=== PATIENT | female | born 1945 | race Caucasian/White ===

== ENCOUNTER → 2017-05-12 09:35 | Outpatient (CLI) | payer MEDICARE, SELFPAY ==
--- NOTE | 2017-05-12 09:41 | CT_ITS ---
CT chest w con HISTORY: Weight loss with elevated liver function and history of breast cancer. Evaluate for metastasis ORDERING PHYSICIAN: Regino Cartagena MD PATIENT AGE: 71 years TECHNIQUE: Axial images obtained following the administration of 75 mL of Isovue 370 . Sagittal, and coronal reformatted images are also generated and reviewed. COMPARISON: None FINDINGS: Small nodes are present in the mediastinum. No adenopathy. Coronary artery calcifications are present. No pericardial effusion. No central pulmonary embolus or aortic aneurysm. No suspicious pulmonary nodules. There is a 3 mm noncalcified nodule in the superior segment of the right lower lobe to small to categorize. No infiltrates or effusions. There is increased density in the inferior aspect of the left breast. Surgical clips are present at this region. This is nonspecific and can be better evaluated with mammography. No axillary adenopathy. No bony destructive process. IMPRESSION: 1. No acute finding. No convincing evidence of pulmonary metastasis. 2. Increased soft tissue density in the left breast adjacent to surgical clips. This could be related to scar tissue. Suggest mammography for further evaluation.
--- NOTE | 2017-05-12 09:42 | CT_ITS ---
CT abdomen pelvis w con CLINICAL INDICATION: ITS.REASON: BREAST CA,WEIGHT LOSS,ELEVATED LIVER FUNCTION ORDERING PHYSICIAN: Regino Cartagena MD PATIENT AGE: 71 years COMPARISON: 07/10/2014 TECHNIQUE: Axial images obtained with sagittal and coronal reformats. PROCEDURE: Oral Contrast: None IV Contrast: 75 mL's of Isovue-370. FINDINGS: No focal liver lesion is evident. No radio opaque gallstones or biliary dilatation. Spleen, adrenal glands, and pancreas are unremarkable.. There is some mild thickening of the proximal jejunum just to the left and lateral to the transverse portion of the duodenum with some minimal stranding of the adjacent fat at this area and a few small lymph nodes in this region as well. Enteritis is considered. Follow-up is suggested to confirm stability. Upper endoscopy of this region may also be of further value. Neoplastic process is felt to be less likely but not entirely excluded radiographically. This could also be seen with pancreatitis however, the pancreas has an unremarkable appearance. No hydronephrosis, renal mass, or obstructing ureteral calculi evident. No evidence of appendicitis, intestinal obstruction, diverticulitis, or free air is evident. There is thickening versus nondistention of the descending colon. No abnormal fluid collections. There has been a prior hysterectomy. No pelvic mass or focal inflammatory change. No acute bony anomalies. Degenerative changes are present in the lumbar spine. IMPRESSION: 1. No evidence of hepatic metastasis. 2. Suspect enteritis of the junction of the duodenum and proximal jejunum. Neoplasm is not entirely excluded. Consider endoscopy for follow-up evaluation. 3. There is mild adenopathy in the proximal mesenteric root with nodes measuring up to 2 x 1 cm which has developed in the interval. This could be reactive. Neoplasm such as metastasis or early lymphoma is also a consideration. Short-term follow-up recommended. 4. Thickening versus nondistention of the descending colon which may be seen with colitis.
--- NOTE | 2017-05-12 10:31 | HMH.ITSHM ---
ALPRAZOLAM,JANUVIA,ATENOLOL VIT D ASPIRIN PROBNIOTICS VEIT D
== END ==
PROVIDERS: PCP Internal Medicine Adolescent Medicine; Visit Provider Internal Medicine Adolescent Medicine
DX: Z03.89 Encounter for observation for other suspected diseases and conditions ruled out (principal); Z85.3 Personal history of malignant neoplasm of breast; R63.4 Abnormal weight loss; R79.89 Other specified abnormal findings of blood chemistry
CPT/HCPCS: 71260; 74177; Q9967

== ENCOUNTER 2017-05-18 22:25 | Emergency (ER) | payer MEDICARE, SELFPAY ==
[2017-05-18 22:25] VITALS: BP 151/88; PULSE 82; RESP 16; TEMP 36.8; O2SAT 100; BMI 21.5
[2017-05-18 22:26] VITALS: BMI 21.5
--- NOTE | 2017-05-18 22:27 | CT_ITS ---
CT head/brain wo con HISTORY: Numbness, paresthesias, right-sided numbness and tingling in face and neck ITS.REASON: TINGLING ORDERING PHYSICIAN: Mayito Campbell MD PATIENT AGE: 71 years COMPARISON: None TECHNIQUE: Axial images obtained without contrast. Brain and bone windows reviewed. FINDINGS: No midline shift, mass effect, intracranial hemorrhage, or extra-axial fluid collection is evident. There is mild [place] atrophy with periventricular ischemic gliotic change. The ventricles are slightly prominent and may be out of context to the degree of atrophy. This may be seen with normal pressure hydrocephalus. Please correlate with clinical parameters. The calvarium has an unremarkable appearance. No mastoid effusion. No sinus air-fluid levels.. IMPRESSION: 1. No acute intracranial findings. 2. Atrophy with white matter ischemic change. 3. Mild ventriculomegaly. Cannot exclude normal pressure hydrocephalus.
--- NOTE | 2017-05-18 23:28 | HMH.EDWEAK ---
ED Disposition Clinical Impression: Weakness Disposition: Home, Self-Care Condition on Discharge: Good Instructions: DI for Muscle Weakness Additional Instructions: fluids and see pcp for follow up Referrals: Regino Cartagena MD [Primary Care Provider] - - Critical Care Critical Care Time: No Attestation: On 05/18/17, the high probability of a clinically significant, sudden or life threatening deterioration of the following system(s) required my full and direct attention, intervention and personal management. The time I documented below is in addition to time spent performing reported procedures but includes the following listed in this critical care notation. Medical Decision Making - Medical Records Medical records reviewed: Yes: I reviewed the patient's medical records. Vital Signs: 05/18/17 22:25 Temperature 98.2 F Temperature Source Oral Pulse Rate [Right Brachial] 82 Respiratory Rate 16 Blood Pressure [Right Arm] 151/88 Blood Pressure Mean [Right Arm] 109 Blood Pressure Source [Right Arm] Automatic Cuff Blood Pressure Position [Right Arm] Supine 02 Sat by Pulse Oximetry 100 Oxygen Delivery Method Room Air - Lab Data Lab results reviewed: Yes: I reviewed the patient's lab results. Lab Results 05/18/17 22:50: WBC 7.6, RBC 3.75 L, Hgb 11.5 L, Hct 35.5 L, MCV 94.8, MCH 30.6, MCHC 32.3, RDW 13.4, Plt Count 235, MPV 8.3, Neut % (Auto) 64.7, Lymph % (Auto) 27.2, [place] % (Auto) 5.8, Eos % (Auto) 2.0, Baso % (Auto) 0.4, Neut # (Auto) 4.9, Lymph # (Auto) 2.1, [place] # (Auto) 0.4, Eos # (Auto) 0.2, Baso # (Auto) 0.0 05/18/17 22:50: Sodium 143, Potassium 3.9, Chloride 107, Carbon Dioxide 28, Anion Gap 11.9, BUN 22 H, Creatinine 0.71, Estimated Creat Clear 43, Estimated GFR 81, Est GFR ( Amer) 98, Glucose 104, Calcium 8.6, Total Bilirubin 0.3, AST 39 H, ALT 51, Alkaline Phosphatase 109, Total Creatine Kinase 60, CK-MB (CK-2) 0.5, CK-MB (CK-2) Rel Index 0.8, Troponin I < 0.02, Total Protein 6.2 L, Albumin 2.9 L, Globulin 3.3 H, Albumin/Globulin Ratio 0.9 L 05/18/17 23:38: Urine Color Yellow, Urine Appearance Clear, Urine pH 5.5, Ur Specific [place] 1.025, Urine Protein Negative, Urine Glucose (UA) Negative, Urine Ketones Negative, Urine Blood Negative, Urine Nitrate Negative, Urine Bilirubin Negative, Urine Urobilinogen 0.2, Ur Leukocyte Esterase Trace, Urine WBC Occasional, Urine Bacteria Trace Result diagrams: 05/18/17 22:50 05/18/17 22:50 Orders (Tests/Meds): ORDERS Category Date Time Status CT head/brain wo con Stat Cat Scan 05/18/17 22:27 Taken ESR [Erythrocyte Sedimentation Rate] Stat Lab 05/18/17 23:36 Ordered 12-lead EKG Request [ECG Request by /Walter] Stat Y 05/18/17 22:35 Ordered - CT Data CT Scan: Head Time Received: 23:[address] Reviewed: Yes: I have viewed the radiologist's interpretation Preliminary Findings: Normal/NAD - ECG Data Tracing #1 I reviewed this ECG and interpreted as documented below: Normal Sinus Rhythm: Yes Ischemic changes: non-specific ST-T wave changes - Brian Inquiry Pt receiving controlled substance: No Weakness HPI - General Chief complaint: Weakness Stated complaint: TINGLING Time Seen by Provider: 05/18/17 22:30 Mode of Arrival: Wheelchair Source of Information: Patient, Spouse, Medical Record Limitations: No Limitations Description of Symptoms (Recalled from ER Triage Doc. by RN): RIGHT ARM TINGLING TODAY, SYMPTOMS HAVE RESOLVED. STATES GENERALIZED WEAKNESS - History of Present Illness HPI Narrative: episode of feeling warm and generalized weakness MD Complaint: generalized weakness Onset (ago): hour(s) Duration: now resolved Migration: none Severity: moderate Quality: tingling - Related Data Home Medications Medication Instructions Recorded Confirmed ALPRAZolam [Alprazolam Xr 0.5mg 0.5 mg PO NEEDED PRN 05/18/17 05/18/17 Tab] Atenolol [Atenolol 100mg Tab] 100 mg PO DAILY 05/18/17 05/18/17 Atorvastatin [place]
--- NOTE | 2017-05-18 23:31 | ED_ITS ---
ED Disposition Clinical Impression: Weakness Disposition: Home, Self-Care Condition on Discharge: Good Instructions: DI for Muscle Weakness Additional Instructions: fluids and see pcp for follow up Referrals: Regino Cartagena MD [Primary Care Provider] - - Critical Care Critical Care Time: No Attestation: On 05/18/17, the high probability of a clinically significant, sudden or life threatening deterioration of the following system(s) required my full and direct attention, intervention and personal management. The time I documented below is in addition to time spent performing reported procedures but includes the following listed in this critical care notation. Medical Decision Making - Medical Records Medical records reviewed: Yes: I reviewed the patient's medical records. Vital Signs: 05/18/17 22:25 Temperature 98.2 F Temperature Source Oral Pulse Rate [Right Brachial] 82 Respiratory Rate 16 Blood Pressure [Right Arm] 151/88 Blood Pressure Mean [Right Arm] 109 Blood Pressure Source [Right Arm] Automatic Cuff Blood Pressure Position [Right Arm] Supine 02 Sat by Pulse Oximetry 100 Oxygen Delivery Method Room Air - Lab Data Lab results reviewed: Yes: I reviewed the patient's lab results. Lab Results 05/18/17 22:50: WBC 7.6, RBC 3.75 L, Hgb 11.5 L, Hct 35.5 L, MCV 94.8, MCH 30.6 , MCHC 32.3, RDW 13.4, Plt Count 235, MPV 8.3, Neut % (Auto) 64.7, Lymph % (Auto ) 27.2, [place] % (Auto) 5.8, Eos % (Auto) 2.0, Baso % (Auto) 0.4, Neut # (Auto) 4.9, Lymph # (Auto) 2.1, [place] # (Auto) 0.4, Eos # (Auto) 0.2, Baso # (Auto) 0.0 05/18/17 22:50: Sodium 143, Potassium 3.9, Chloride 107, Carbon Dioxide 28, Anion Gap 11.9, BUN 22 H, Creatinine 0.71, Estimated Creat Clear 43, Estimated GFR 81, Est GFR ( Amer) 98, Glucose 104, Calcium 8.6, Total Bilirubin 0.3 , AST 39 H, ALT 51, Alkaline Phosphatase 109, Total Creatine Kinase 60, CK-MB ( CK-2) 0.5, CK-MB (CK-2) Rel Index 0.8, Troponin I < 0.02, Total Protein 6.2 L, Albumin 2.9 L, Globulin 3.3 H, Albumin/Globulin Ratio 0.9 L 05/18/17 23:38: Urine Color Yellow, Urine Appearance Clear, Urine pH 5.5, Ur Specific [place] 1.025, Urine Protein Negative, Urine Glucose (UA) Negative, Urine Ketones Negative, Urine Blood Negative, Urine Nitrate Negative, Urine Bilirubin Negative, Urine Urobilinogen 0.2, Ur Leukocyte Esterase Trace, Urine WBC Occasional, Urine Bacteria Trace Result diagrams: 05/18/17 22:50 05/18/17 22:50 Orders (Tests/Meds): ORDERS Category Date Time Status CT head/brain wo con Stat Cat Scan 05/18/17 22:27 Taken ESR [Erythrocyte Sedimentation Rate] Stat Lab 05/18/17 23:36 Ordered 12-lead EKG Request [ECG Request by /Walter] Stat Y 05/18/17 22:35 Ordered - CT Data CT Scan: Head Time Received: 23:[address] Reviewed: Yes: I have viewed the radiologist's interpretation Preliminary Findings: Normal/NAD - ECG Data Tracing #1 I reviewed this ECG and interpreted as documented below: Normal Sinus Rhythm: Yes Ischemic changes: non-specific ST-T wave changes - Brian Inquiry Pt receiving controlled substance: No Weakness HPI - General Chief complaint: Weakness Stated complaint: TINGLING Time Seen by Provider: 05/18/17 22:30 Mode of Arrival: Wheelchair Source of Information: Patient, Spouse, Medical Record Limitations: No Limitations Description of Symptoms (Recalled from ER Triage Doc. by RN): RIGHT ARM TINGLING TO
[2017-05-18 23:41] LABS: Basophils % 0.4 % (0.1-2.0); Eosinophils # 0.2 K/mm3 (0.0-0.4); Hematocrit 35.5 % (37.0-47.0); Hemoglobin 11.5 g/dL (12.2-16.2); Lymphocytes # 2.1 K/mm3 (0.7-4.5); Lymphocytes % 27.2 K/mm3 (10-50); Mean Corpuscular HGB Conc 32.3 g/dL (31.8-35.4); Mean Corpuscular Hemoglobin 30.6 pg (27.0-31.2); Mean Corpuscular Volume 94.8 fl (81-99); Mean Platelet Volume 8.3 fl (7.4-10.4); Monocytes # 0.4 K/mm3 (0.1-1.0); Monocytes % 5.8 % (1.7-9.3); Neutrophils # 4.9 K/mm3 (1.8-7.8); Neutrophils % 64.7 % (37.0-80.0); Platelet Count 235 K/mm3 (142-424); Red Blood Count 3.75 M/mm3 (4.20-5.40); Red Cell Distribution Width 13.4 % (11.5-17.5); White Blood Count 7.6 K/mm3 (4.8-10.8)
[2017-05-18 23:45] LABS: Microscopic, Urine URINE MICROSCOPIC (MICROSCOPIC)
[2017-05-19 00:11] LABS: Alanine Aminotransferase 51 U/L (12-78); Albumin Level 2.9 gm/dL (3.4-5.0); Albumin/Globulin Ratio 0.9 (1.1-1.8); Alkaline Phosphatase 109 U/L (46-116); Anion Gap 11.9 mEq/L (5-15); Aspartate Amino Transferase 39 U/L (15-37); Bilirubin,Total 0.3 mg/dL (0.2-1.0); Blood Urea Nitrogen 22 mg/dL (7-18); CKMB Relative Index 0.8 U/L (0-4.0); Calcium 8.6 mg/dL (8.5-10.1); Carbon Dioxide 28 mmol/L (21.0-32.0); Chloride 107 mmol/L (98-107); Creatine Kinase 60 U/L (26-192); Creatine Kinase MB 0.5 mg/ml (0.0-3.6); Creatinine Clearance Estimated 43 mL/min (0-300); Creatinine,Serum 0.71 mg/dL (0.55-1.02); Estimated Glomerular Filt Rate 81 ml/min (>60); GFR (African American) 98 ML/MIN (>60); Globulin 3.3 gm/dl (1.3-3.2); Glucose 104 mg/dL (74-106); Potassium 3.9 mmoL/L (3.5-5.1); Sodium 143 mmol/L (136-145); Total Protein,Serum 6.2 gm/dL (6.4-8.2); Troponin I < 0.02 ng/ml (0.00-0.06)
[2017-05-19 00:28] LABS: Appearance,Urine CLEAR (Clear); Bilirubin,Urine Negative (Negative); Blood, Urine Negative (Negative); Color,Urine YELLOW (Yellow); Glucose,Urine (UA) Negative (Negative); Ketones,Urine Negative (Negative); Leukocyte Esterase,Urine TRACE (Negative); Nitrate,Urine Negative (Negative); PH,Urine 5.5 (5.0-8.5); Protein,Urine Negative (Negative); Specific Gravity, Urine 1.025 (1.005-1.030); Urobilinogen,Urine 0.2 EU/dl (0.2)
[2017-05-19 00:37] LABS: Bacteria,Urine Trace /lpf; WBC,Urine Occasional #/hpf (0-3)
[2017-05-19 01:01] LABS: Erythrocyte Sedimentation Rate 42 mm/hr (0-30)
[2017-05-19 01:02] VITALS: BP 136/73; PULSE 70; RESP 16; TEMP 36.6; O2SAT 99
== END 2017-05-19 01:04 | disposition home or self-care (01) ==
PROVIDERS: Emergency Provider Emergency Medicine; PCP Internal Medicine Adolescent Medicine
DX: M62.81 Muscle weakness (generalized) (principal); R20.0 Anesthesia of skin; Z79.899 Other long term (current) drug therapy
CPT/HCPCS: 36415; 70450; 80053; 81001; 82550; 82553; 84484; 85025; 85651; 93005; 99282

== ENCOUNTER → 2017-06-01 08:18 | Outpatient (POV) | payer MEDICARE, SELFPAY | PROVIDERS: PCP Internal Medicine Adolescent Medicine; Visit Provider Nurse Practitioner Acute Care | DX: Z00.00 Encounter for general adult medical examination without abnormal findings (principal) ==

== ENCOUNTER → 2017-06-04 14:25 | Outpatient (POV) | payer MEDICARE, SELFPAY | PROVIDERS: Visit Provider Dermatology | DX: Z00.00 Encounter for general adult medical examination without abnormal findings (principal) ==

== ENCOUNTER 2017-07-13 10:32 | Day surgery (SDC) | payer MEDICARE, SELFPAY ==
[2017-07-09 14:22] VITALS: BMI 21.5
[2017-07-13] VITALS (8 sets, daily range): BP systolic 105–131; BP diastolic 48–67; PULSE 59–77; RESP 16–18; TEMP 36.4–36.9; O2SAT 96–100
[2017-07-13 11:05] LABS: POC Glucose,Bedside 124 (70-110)
--- NOTE | 2017-07-13 12:17 | HMH.ANESCL ---
[facility] Anesthesia Checklist - Patient Identification Patient Identification: Arm Band, Verbal (Name & ) - Structural Data Admitted From: Home Consent for Planned Operative Procedure(s) Verified: Yes Verified Documents: Surgical Consent, History and Physical - NPO Status Verified Time NPO: 00:00 - Additional verifications Patient : No Anesthesia Reactions: No - Airway Assessment C-Spine Mobility Assessed: Yes TMJ Mobility Assessed: Yes Dentition: Good Dentition - Neurological Assessment Level of Consciousness: Awake Hx Seizures: No Numbness or tingling in extremities: No - Anesthesia Plan Anesthesia Risk discussed: Yes Anesthesia Plan: Verified ASA Class: III Anesthesia Type: MAC [facility] Anesthesia HX I have reviewed the patient's past medical history: Yes Medical History: Reports:: Anxiety, Diabetes Mellitus Type 2, Hyperlipidemia, Hypertension Denies:: Diabetes Mellitus Type 1, Internal Pacemaker, Lung Disease, Seizures Comment: H/O Breast Ca. Laterality Cases: Left: Lumpectomy Other Surgeries: No: Pacemaker
--- NOTE | 2017-07-13 12:21 | P.PN_ITS ---
[facility] Anesthesia Checklist - Patient Identification Patient Identification: Arm Band, Verbal (Name & ) - Structural Data Admitted From: Home Consent for Planned Operative Procedure(s) Verified: Yes Verified Documents: Surgical Consent, History and Physical - NPO Status Verified Time NPO: 00:00 - Additional verifications Patient : No Anesthesia Reactions: No - Airway Assessment C-Spine Mobility Assessed: Yes TMJ Mobility Assessed: Yes Dentition: Good Dentition - Neurological Assessment Level of Consciousness: Awake Hx Seizures: No Numbness or tingling in extremities: No - Anesthesia Plan Anesthesia Risk discussed: Yes Anesthesia Plan: Verified ASA Class: III Anesthesia Type: MAC [facility] Anesthesia HX I have reviewed the patient's past medical history: Yes Medical History: Reports:: Anxiety, Diabetes Mellitus Type 2, Hyperlipidemia, Hypertension Denies:: Diabetes Mellitus Type 1, Internal Pacemaker, Lung Disease, Seizures Comment: H/O Breast Ca. Laterality Cases: Left: Lumpectomy Other Surgeries: No: Pacemaker
--- NOTE | 2017-07-13 12:27 | HMH.PROC ---
[facility] Procedure Note Procedure Note:: Upper Endoscopy Procedure Report: Esophagogastroduodenoscopy with cold biopsies Endoscopost: Alban Crespo II, MD Referring Physician: Regino Cartagena M.D. Date of Procedure: July 13, 2017 Equipment: Olympus GIF 180 standard upper endoscope Sedation: MAC sedation Indications: Mrs. Rod is a 71-year-old female with dyspepsia. She reports epigastric and some right upper quadrant abdominal pain. She has noted some bloating, belching, nausea, early satiety and a 20 pound weight loss. The patient did have an EGD in 2012 (Dr. Philip Diana). She did have a colonoscopy with me in June 2016 had pericolonic adhesions in the sigmoid colon with a single polyp (tubular adenoma ?1) which was removed. The patient had an ultrasound and HIDA scan 2 or 3 years ago which were normal. She continues to have irregular bowel function. Procedure: Prior to the procedure, a history and physical exam was performed, and patient's medications and allergies were reviewed. The risks, benefits and alternatives of the sedation and procedure were discussed with the patient. All questions were answered and informed consent was obtained. The patient was brought to the procedure room. Patient identification and proposed procedure were verified by the physician and the nurse. The patient was placed in a left lateral decubitus position and the scope was passed under direct vision. Throughout the procedure, the patient's blood pressure, pulse, and oxygen saturations were monitored continuously. The upper GI endoscopy was accomplished without difficulty. The patient tolerated the procedure well. Findings: The scope was passed directly into the upper esophagus and advanced to the third and fourth portion of the duodenum. There was some linear erosions on the conniventes with some luminal narrowing suggestive of NSAID enteropathy. Multiple cold biopsies were obtained. The scope was withdrawn through a normal duodenal bulb and pylorus into the stomach. There was linear erythema of the antrum with bile reflux consistent with linear reactive gastritis. The remainder of the antrum, body and fundus of the stomach were grossly normal. Upon retroflexion there was a very small sliding 1-2 cm hiatal hernia. 2 biopsies were taken in the antrum and along the lesser curvature for histology to rule out gastritis and/or H pylori. The scope was then withdrawn into the esophagus. There was evidence of grade A-B reflux esophagitis with serrated Z line. Cold biopsies were obtained. There were tertiary contractions and evidence of mild esophageal dysmotility. The remainder of the esophageal mucosa was normal. Impression: 1. Grade A-B reflux esophagitis with mild esophageal dysmotility and very small sliding hiatal hernia 2. Bile reflux with mild linear reactive antritis/gastritis 3. Possible NSAID enteropathy Plan: I will follow up the biopsies. I would consider misoprostol twice daily if she is taking any NSAIDs. I would continue PPI therapy. We will discuss additional treatment options which may include treatment for visceral sensitivity.
--- NOTE | 2017-07-13 12:32 | P.PCN_ITS ---
[facility] Procedure Note Procedure Note:: Upper Endoscopy Procedure Report: Esophagogastroduodenoscopy with cold biopsies Endoscopost: Alban Crespo II, MD Referring Physician: Regino Cartagena M.D. Date of Procedure: July 13, 2017 Equipment: Olympus GIF 180 standard upper endoscope Sedation: MAC sedation Indications: Mrs. oRd is a 71-year-old female with dyspepsia. She reports epigastric and some right upper quadrant abdominal pain. She has noted some bloating, belching, nausea, early satiety and a 20 pound weight loss. The patient did have an EGD in 2012 (Dr. Philip Diana). She did have a colonoscopy with me in June 2016 had pericolonic adhesions in the sigmoid colon with a single polyp (tubular adenoma ?1) which was removed. The patient had an ultrasound and HIDA scan 2 or 3 years ago which were normal. She continues to have irregular bowel function. Procedure: Prior to the procedure, a history and physical exam was performed, and patient' s medications and allergies were reviewed. The risks, benefits and alternatives of the sedation and procedure were discussed with the patient. All questions were answered and informed consent was obtained. The patient was brought to the procedure room. Patient identification and proposed procedure were verified by the physician and the nurse. The patient was placed in a left lateral decubitus position and the scope was passed under direct vision. Throughout the procedure, the patient's blood pressure, pulse, and oxygen saturations were monitored continuously. The upper GI endoscopy was accomplished without difficulty. The patient tolerated the procedure well. Findings: The scope was passed directly into the upper esophagus and advanced to the third and fourth portion of the duodenum. There was some linear erosions on the conniventes with some luminal narrowing suggestive of NSAID enteropathy. Multiple cold biopsies were obtained. The scope was withdrawn through a normal duodenal bulb and pylorus into the stomach. There was linear erythema of the antrum with bile reflux consistent with linear reactive gastritis. The remainder of the antrum, body and fundus of the stomach were grossly normal. Upon retroflexion there was a very small sliding 1-2 cm hiatal hernia. 2 biopsies were taken in the antrum and along the lesser curvature for histology to rule out gastritis and/or H pylori. The scope was then withdrawn into the esophagus. There was evidence of grade A-B reflux esophagitis with serrated Z line. Cold biopsies were obtained. There were tertiary contractions and evidence of mild esophageal dysmotility. The remainder of the esophageal mucosa was normal. Impression: 1. Grade A-B reflux esophagitis with mild esophageal dysmotility and very small sliding hiatal hernia 2. Bile reflux with mild linear reactive antritis/gastritis 3. Possible NSAID enteropathy Plan: I will follow up the biopsies. I would consider misoprostol twice daily if she is taking any NSAIDs. I would continue PPI therapy. We will discuss additional treatment options which may include treatment for visceral sensitivity.
== END 2017-07-13 13:30 | disposition home or self-care (01) ==
PROVIDERS: PCP Nurse Practitioner Family; Visit Provider Internal Medicine Gastroenterology
PROC: 0DJ08ZZ Inspection of Upper Intestinal Tract, Via Natural or Artificial Opening Endoscopic (ICD-10-PCS; CPT 43235; principal; 2017-07-13 12:00)
DX: K21.0 Gastro-esophageal reflux disease with esophagitis (principal); K44.9 Diaphragmatic hernia without obstruction or gangrene; K22.4 Dyskinesia of esophagus; K21.9 Gastro-esophageal reflux disease without esophagitis; K29.60 Other gastritis without bleeding
CPT/HCPCS: 43239; 82962; 88305; 88313

== ENCOUNTER 2017-07-28 13:00 | Outpatient (CLI) | payer MEDICARE, SELFPAY ==
[2017-07-28 13:11] VITALS: BMI 22.6
[2017-07-28 13:40] LABS: Albumin Level 3.1 gm/dL (3.4-5.0); Calcium 8.9 mg/dL (8.5-10.1); Creatinine Clearance Estimated 44 mL/min (0-300); Creatinine,Serum 0.96 mg/dL (0.55-1.02); Estimated Glomerular Filt Rate 57 ml/min (>60); GFR (African American) 69 ML/MIN (>60)
[2017-07-28 14:32] VITALS: BP 122/78; PULSE 68; RESP 20; TEMP 36.9; O2SAT 96
[2017-07-28 15:00] VITALS: BP 126/74; PULSE 66; RESP 20; TEMP 36.9; O2SAT 96
== END 2017-07-28 15:00 | disposition home or self-care (01) ==
LOC: INF 13:07
PROVIDERS: PCP Nurse Practitioner Family; Visit Provider Nurse Practitioner Family
DX: M81.0 Age-related osteoporosis without current pathological fracture (principal)
CPT/HCPCS: 82040; 82310; 82565; J3489

== ENCOUNTER → 2017-08-05 16:09 | Outpatient (CLI) | payer MEDICARE, SELFPAY ==
--- NOTE | 2017-08-05 16:12 | MM_ITS ---
MM Dig screening mamm BI w/CAD CAD Screening ORDERING PHYSICIAN : Holly Cortés PATIENT AGE: 71 years GENDER: Female COMPARISON: Previous mammograms: May 2013, July 2014, 2015, 2016April 2012 INDICATION: Lumpectomy for malignancy left breast. Currently No hormones no new complaints. Noncontributory family history TECHNIQUE: Standard CC and MLO images were obtained. Axillary cc view both breast included R2 CAD reviewed. -FINDINGS: No significant new findings either breast. Minimal residual fibroglandular elements with post lumpectomy changes left breast most notable feature RIGHT BREAST no significant new findings. Residual fibroglandular elements are most evident at immediate retroareolar region on right again noted similar to last years study. LEFT BREAST: :No significant new findings Postlumpectomy changes. Scarring and mild architectural changes along with residual density here on at lumpectomy site appears similar to previous studies. There are some scattered calcifications lateral to this area which appear stable as well -----IMPRESSION: ------- No significant new findings either breast Postlumpectomy changes left breast again noted and appear stable Ongoing Follow-up in one year recommended BI-RADS Category: 2 Benign Finding(s) RECOMMENDED FOLLOW-UP: 1YR - 1 YEAR FOLLOW-UP (A letter has been sent to the patient regarding results of the study.) In
== END ==
PROVIDERS: PCP Nurse Practitioner Family; Visit Provider Nurse Practitioner Family
DX: Z12.31 Encounter for screening mammogram for malignant neoplasm of breast (principal)
CPT/HCPCS: 77067

== ENCOUNTER → 2017-10-05 12:43 | Outpatient (POV) | payer MEDICARE, SELFPAY | PROVIDERS: PCP Nurse Practitioner Family; Visit Provider Nurse Practitioner Acute Care | DX: Z00.00 Encounter for general adult medical examination without abnormal findings (principal) ==

== ENCOUNTER → 2018-03-26 12:23 | Outpatient (CLI) | payer MEDICARE, SELFPAY ==
[2018-03-26 16:35] LABS: Thyroid Stimulating Hormone 1.99 uIU/ml (0.358-3.740)
== END ==
PROVIDERS: Visit Provider Internal Medicine Adolescent Medicine
DX: F32.9 Major depressive disorder, single episode, unspecified (principal)
CPT/HCPCS: 36415; 84443

== ENCOUNTER → 2018-04-12 13:18 | Outpatient (POV) | payer MEDICARE, SELFPAY | PROVIDERS: Visit Provider Nurse Practitioner Acute Care | DX: Z00.00 Encounter for general adult medical examination without abnormal findings (principal) ==

== ENCOUNTER → 2018-05-25 09:22 | Outpatient (POV) | payer MEDICARE, SELFPAY | PROVIDERS: Visit Provider Dermatology | DX: Z00.00 Encounter for general adult medical examination without abnormal findings (principal) ==

== ENCOUNTER → 2018-07-08 09:48 | Outpatient (CLI) | payer MEDICARE, SELFPAY ==
--- NOTE | 2018-07-08 09:52 | XR_ITS ---
. DEXA SCAN.-BONE DENSITY STUDY HIPS AND LUMBAR SPINE HISTORY: Postmenopausal female 72-year-old female. TECHNIQUE: DEXA scan hip and lumbar spine The most complete data summary and color graphic presentation of the today's ( and any prior ) DEXA findings are available in PACS. Definition and treatment guidelines included. COMPARISON: DEXA May 30, 2016 ======== LUMBAR SPINE: L1 & L2 vertebral body osteoporotic & demonstrates the lowest T score = -2.8 at both levels. Lower BMD is at at L1 = 0.798 Overall mean lumbar L1-L4 T score -2.4 with BMD0.898 g/cm sq . Indicating pronounced osteopenia, near osteoporosis category 2017 prior DEXA the mean T score -2.6 with BMD was0.868g/cm sq Thus when comparing today's study to the prior exam there's been a 3.2% % increasing mean bone density at the lumbar spine. ====== HIPS: Femoral neck density is best predictor of hip fracture risk . Left femoral neck demonstrates the lowest T score -2.5 with BMD0.697 g/cm sq . Right femoral neck T score = -2.3 with BMD 0.717 Averaging of all regions at the hip yields today's Hip Mean T score -2.2 with BMD0.733 g/cm sq . Previous 2017 DEXA overall hip T score -2.6 with mean BMD0.680 g/cm sq Thus this reflects a 7.8% increasein overall mean bone density at the hips in the interval. ------IMPRESSION :--------- increased fracture risk 1. LUMBAR SPINE: Overall T score lumbar spine = -2.4, but which is shown 3.2% increase bone density/improvement since previous 2017 study L1-L2 vertebral bodies remain osteoporotic... Both demonstrate T score -2.8.. 2. HIPS: Overall hip T score -2.2 indicating osteopenia. However note 7.8% increase bone density overall at the hips vs 2017 study WHO criteria for post-menopausal, Women: Normal: T-score at or above -1 SD Osteopenia: T-score between -1 and -2.5 SD Osteoporosis: T-score at or below -2.5 SD
== END ==
PROVIDERS: PCP Nurse Practitioner Family; Visit Provider Nurse Practitioner Family
DX: M81.0 Age-related osteoporosis without current pathological fracture (principal)
CPT/HCPCS: 77080

== ENCOUNTER 2018-07-30 11:00 | Outpatient (CLI) | payer MEDICARE, SELFPAY ==
[2018-07-30 11:03] VITALS: BMI 27.3
[2018-07-30 11:37] LABS: Basophils % 0.4 % (0.1-2.0); Eosinophils # 0.1 K/mm3 (0.0-0.4); Eosinophils % 1.2 % (0.1-12.0); Hematocrit 37.5 % (37.0-47.0); Hemoglobin 12.3 g/dL (12.2-16.2); Lymphocytes % 18.3 % (10-50); Mean Corpuscular HGB Conc 32.7 g/dL (31.8-35.4); Mean Platelet Volume 7.8 fl (7.4-10.4); Monocytes # 0.3 K/mm3 (0.1-1.0); Monocytes % 4.8 % (1.7-9.3); Neutrophils # 4.2 K/mm3 (1.8-7.8); Neutrophils % 75.3 % (37.0-80.0); Platelet Count 221 K/mm3 (142-424); Red Blood Count 4.08 M/mm3 (4.20-5.40); Red Cell Distribution Width 13.7 % (11.5-17.5); White Blood Count 5.6 K/mm3 (4.8-10.8)
[2018-07-30 11:45] LABS: Alanine Aminotransferase 36 U/L (12-78); Albumin Level 3.5 gm/dL (3.4-5.0); Albumin/Globulin Ratio 0.9 (1.1-1.8); Alkaline Phosphatase 100 U/L (46-116); Anion Gap 12.9 mEq/L (5-15); Aspartate Amino Transferase 25 U/L (15-37); Bilirubin,Total 0.6 mg/dL (0.2-1.0); Blood Urea Nitrogen 18 mg/dL (7-18); Calcium 8.6 mg/dL (8.5-10.1); Carbon Dioxide 27 mmol/L (21.0-32.0); Chloride 103 mmol/L (98-107); Chol/HDL Ratio 2.4 (1-3.5); Cholesterol 127 mg/dL (140-200); Creatinine Clearance Estimated 52 mL/min (50-200); Estimated Glomerular Filt Rate 54 ml/min (>60); GFR (African American) 66 ML/MIN (>60); Glucose 197 mg/dL (74-106); HDL Cholesterol 54 mg/dL (29-89); LDL Cholesterol 61 mg/dL (0-130); Potassium 3.9 mmoL/L (3.5-5.1); Sodium 139 mmol/L (136-145); Total Protein,Serum 7.5 gm/dL (6.4-8.2); Triglycerides 60 mg/dL (30-200); VLDL Cholesterol 12 mg/dL (0-40)
[2018-07-30 12:00] VITALS: BP 132/78; PULSE 65; TEMP 36.8; O2SAT 93
[2018-07-30 12:48] VITALS: BP 134/73; PULSE 65; TEMP 36.4; O2SAT 98
[2018-07-30 15:10] LABS: Hemoglobin A1C 6.5 % (0.0-7.0)
[2018-07-31 06:44] LABS: Vitamin D 25 Hydroxy 55.9 ng/mL (30.0-100.0)
[2018-07-31 09:12] LABS: Creatinine, Urine 90.9 mg/dL (Not Estab.); Microalbumin, Urine 12.6 ug/mL (Not Estab.)
[2018-07-31 12:41] LABS: Vitamin B12 426 pg/mL (232-1245)
== END 2018-07-30 12:49 | disposition home or self-care (01) ==
LOC: INF 11:00
PROVIDERS: Visit Provider Nurse Practitioner Family
DX: E11.29 Type 2 diabetes mellitus with other diabetic kidney complication (principal); I10 Essential (primary) hypertension; D51.9 Vitamin B12 deficiency anemia, unspecified; M81.0 Age-related osteoporosis without current pathological fracture; R80.9 Proteinuria, unspecified; Z79.84 Long term (current) use of oral hypoglycemic drugs
CPT/HCPCS: 80053; 80061; 82043; 82570; 82607; 82652; 83036; 85025; 96365; J3489

== ENCOUNTER → 2018-09-03 08:26 | Outpatient (CLI) | payer MEDICARE, SELFPAY ==
--- NOTE | 2018-09-03 08:28 | MM_ITS ---
MM Dig screening mamm BI w/CAD CAD Screening COMPARISON: Digital mammograms with CAD 08/05/2017 and 08/01/2016 INDICATION: There is been previous lumpectomy left breast for malignancy TECHNIQUE: Standard CC and MLO images were obtained. R2 CAD reviewed. FINDINGS: Moderate architectural distortion is seen at the lumpectomy site left breast where there are surgical clips and some scattered calcifications. There is mild skin thickening of the left breast, has a been previous radiotherapy? There are mole markers on each breast. Right breast is composed primarily of fat with minimal fibroglandular densities noted. There is a stable keloid scar right breast. IMPRESSION: Stable exam with post lumpectomy scarring left breast and no suspicious or new lesion seen in either breast BI-RADS Category: 2 Benign Finding(s) RECOMMENDED FOLLOW-UP: 1YR - 1 YEAR FOLLOW-UP (A letter has been sent to the patient regarding results of the study.)
== END ==
PROVIDERS: PCP Nurse Practitioner Family; Visit Provider Nurse Practitioner Family
DX: Z12.31 Encounter for screening mammogram for malignant neoplasm of breast (principal)
CPT/HCPCS: 77067

== ENCOUNTER → 2019-01-04 09:40 | Outpatient (CLI) | payer MEDICARE, SELFPAY ==
[2019-01-04 10:15] LABS: Basophils % 0.5 % (0.1-2.0); Eosinophils # 0.1 K/mm3 (0.0-0.4); Eosinophils % 1.8 % (0.1-12.0); Hematocrit 37.9 % (37.0-47.0); Hemoglobin 11.8 g/dL (12.2-16.2); Lymphocytes # 1.3 K/mm3 (0.7-4.5); Lymphocytes % 21.9 % (10-50); Mean Corpuscular HGB Conc 31.2 g/dL (31.8-35.4); Mean Corpuscular Hemoglobin 29.7 pg (27.0-31.2); Mean Corpuscular Volume 95.4 fl (81-99); Mean Platelet Volume 7.9 fl (7.4-10.4); Monocytes # 0.3 K/mm3 (0.1-1.0); Monocytes % 4.7 % (1.7-9.3); Neutrophils # 4.2 K/mm3 (1.8-7.8); Neutrophils % 71.2 % (37.0-80.0); Platelet Count 231 K/mm3 (142-424); Red Blood Count 3.97 M/mm3 (4.20-5.40); Red Cell Distribution Width 14.8 % (11.5-17.5); White Blood Count 5.8 K/mm3 (4.8-10.8)
[2019-01-04 10:32] LABS: Hemoglobin A1C 7.1 % (0.0-7.0)
[2019-01-04 11:02] LABS: Alanine Aminotransferase 18 U/L (12-78); Albumin Level 3.5 gm/dL (3.4-5.0); Alkaline Phosphatase 96 U/L (46-116); Anion Gap 14.2 mEq/L (5-15); Aspartate Amino Transferase 14 U/L (15-37); Bilirubin,Total 0.7 mg/dL (0.2-1.0); Blood Urea Nitrogen 19 mg/dL (7-18); Calcium 9.1 mg/dL (8.5-10.1); Carbon Dioxide 26 mmol/L (21.0-32.0); Chloride 105 mmol/L (98-107); Chol/HDL Ratio 2.6 (1-3.5); Cholesterol 135 mg/dL (140-200); Creatinine,Serum 0.99 mg/dL (0.55-1.02); Estimated Glomerular Filt Rate 55 ml/min (>60); GFR (African American) 66 ML/MIN (>60); Globulin 3.4 gm/dl (1.3-3.2); Glucose 147 mg/dL (74-106); HDL Cholesterol 51 mg/dL (29-89); LDL Cholesterol 63 mg/dL (0-130); Potassium 4.2 mmoL/L (3.5-5.1); Sodium 141 mmol/L (136-145); Thyroid Stimulating Hormone 2.94 uIU/ml (0.358-3.740); Total Protein,Serum 6.9 gm/dL (6.4-8.2); Triglycerides 104 mg/dL (30-200); VLDL Cholesterol 21 mg/dL (0-40)
[2019-01-04 11:06] LABS: C-Reactive Protein < 0.2 mg/dL (0.0-0.9)
[2019-01-04 16:36] LABS: Erythrocyte Sedimentation Rate 39 mm/hr (0-30)
[2019-01-05 16:45] LABS: RA Latex Turbid. <10.0 IU/mL (0.0-13.9); Vitamin B12 411 pg/mL (232-1245); Vitamin D 25 Hydroxy 46.5 ng/mL (30.0-100.0)
[2019-01-06 06:13] LABS: Anti-Cyclic Citrullinated Pept 8 units (0-19)
== END ==
PROVIDERS: Visit Provider Nurse Practitioner Family
DX: E11.9 Type 2 diabetes mellitus without complications (principal); M25.60 Stiffness of unspecified joint, not elsewhere classified; R70.0 Elevated erythrocyte sedimentation rate; R06.09 Other forms of dyspnea; E55.9 Vitamin D deficiency, unspecified; E53.8 Deficiency of other specified B group vitamins; I10 Essential (primary) hypertension; Z79.84 Long term (current) use of oral hypoglycemic drugs
CPT/HCPCS: 36415; 80053; 80061; 82607; 82652; 83036; 84443; 85025; 85651; 86140; 86200; 86431

== ENCOUNTER → 2019-01-17 06:17 | Outpatient (CLI) | payer MEDICARE, SELFPAY ==
--- NOTE | 2019-01-17 | CA_ITS ---
APPROVED REPORT Exam: Pharmacologic Technologist: Urvashi Wilde Ht: 5 ft 2 in Wt: 150 lbs BSA: 1.69 m2 HR: 59 bpm BP: 147/79 mmHg Indications: Shortness of Breath on Exertion, Family History of Early CAD Medical History Medications: Alprazolam,,,,, Atenolol,,,,, Atorvastatin,,,,, Vitamins,,,,, Citalopram,,,,, Januvia,,,,, Stress Test Details Test: LEXISCAN HR Resting HR: 61 bpm Max Heart Rate (APMHR): 146 bpm Max HR Achieved: 111 bpm Target HR (85% APMHR): 124 bpm % of APMHR: 76 Recovery HR: 83 bpm BP Resting BP: 147.0/79.0 mmHg Max BP: 190.0/100.0 mmHg Recovery BP: 140.0/86.0 mmHg ECG Clinical Exercise duration: 04:03 min Highest Stage Achieved: Exercise capacity: 1.0 METs Stress ECG Conclusion Resting ECG: Sinus bradycardia Lexiscan portion completed. Symptoms: Nausea at peak infusion, resolved in recovery. No chest pain or shortness of breath. Arrhythmias/Ectopy: Occasional PVC ST-T Changes: Less than 1.[address] depression. Conclusion: Non-diagnostic. Images to follow. Electronically signed by : Russell Fam, 01/17/2019 21:36:47
--- NOTE | 2019-01-17 06:33 | NM_ITS ---
APPROVED REPORT Exam: Nuclear Stress Test Indication: SOB, HTN, DM, High Cholesterol Patient Location: Outpatient Stress Tech: Urvashi Wilde NM Tech:Chela Bone, ARRT, RT (R)(N) Ht: 5 ft 2 in Wt: 150 lbs Bra Size: 36B HR: 59 bpm BP: 147/79 mmHg BSA: 1.69 m2 BMI: 27.4 History: SOB, HTN, DM, High Cholesterol Procedure: Patient received a 0.4 mg of intravenous Lexiscan, resting heart rate 59 bpm, resting blood pressure 147/79 mmHg, with Lexiscan maximum heart rate achived was 102 bpm which is Less than 85 % of the maximum predicted heart rate and blood pressure was 173/101 mmHg. With Lexiscan, patient denied any complaint of chest pain. Electrocardiogram Resting electrocardiogram showed sinus rhythm, with Lexiscan there is a millimeter ST segment depression noted from the baseline EKG. The EKG portion of the Lexiscan Myoview is positive for ischemia. Cardiac Stress and Resting SPECT Images: Cardiac Stress and Resting SPECT images were obtained using technetium 99m Myoview 30.5 mCi stress and 10.48 mCi at rest. Gated SPECT with analysis of segmental wall motion and calculation of the ejection fraction also done. Cardiac stress and resting SPECT images show uniform myocardial activity without segmental perfusion abnormality,. Derived ejection fraction is over 65% with no regional wall motion abnormality, right ventricle is normal size and contractility. Conclusion: 1. The EKG portion of the Lexiscan Myoview is positive for ischemia. 2. No scintigraphic evidence of reversible ischemia seen, computer derived ejection fraction is over 65% with no regional wall motion abnormality, right ventricle is normal size and contractility. 3. Equivocal myocardial perfusion imaging. Electronically signed by : Russell Fam, 01/17/2019 21:39:11
--- NOTE | 2019-01-17 06:43 | CA_ITS ---
APPROVED REPORT EXAM: Comprehensive 2D, Doppler, and color-flow Echocardiogram Chalk Machine Operator: Mónica Mejia RDCS Ht: 5 ft 2 in Wt: 150lbs BSA: 1.69 BP: 146/80 mmHg Indications: Shortness of Breath, Diabetes, Dyspnea, Hyperlipidemia, Hypertension/HDD M-Mode Dimensions RVDd 1.60 cm (0.9-2.6) LA Diam 2.70 cm (1.9-4.0) LVDd 5.00 cm (3.5-5.7) Ao Diam 2.90 cm (2.0-3.7) LVDs 3.60 cm (3.5-5.7) AV Cusp 1.20 cm (1.5-2.6) IVSd 0.90 cm (0.6-1.1) PWd 0.70 cm (0.6-1.1) EF (Teich) 53.90% FS 28.00% EDV (Teich) 118.00 mL ESV (Teich) 54.40 mL LV Diastology E/A Ratio 0.8 MED E' 4.09 (< 7 cm/sec) E'/MED E' Ratio 19.20 (>14) LAT E' 6.63 (<10 cm/sec) E/LAT E' Ratio 11.80 (>14) Aortic Valve AI PHT 524.00 ms Mitral Valve MV E Max Virgilio. 78.50 (40-130 cm/s) MV A Velocity 99.20 (40-130 cm/s) E/A Ratio 0.80 Tricuspid Valve TR P. Velocity 239.00 cm/s RAP Estimate 10.00 mmHg RVSP 33.00 mmHg Left Ventricle Left atrium is mildly enlarged, left ventricle is normal size, mild concentric left ventricular hypertrophy, visually estimated ejection fraction 55% with no regional wall motion abnormality, grade 1 diastolic dysfunction seen with tissue Doppler evidence of raise left atrial pressure. Right Ventricle Right atrium and right ventricular normal size and contractility. Aortic Valve Aortic valve is minimally thickened and fibrosed, there is no aortic stenosis, there is mild aortic insufficiency. Mitral Valve Mitral valve is grossly normal, there is mild mitral regurgitation. Tricuspid Valve Tricuspid valve is grossly normal, there is mild tricuspid regurgitation, calculated right ventricular systolic pressure is 32 mmHg. Pulmonic Valve Pulmonic valve is poorly visualized. Great Vessels Aortic root is normal size. Pericardium No significant pericardial effusion noted. Conclusion 1. Mildly enlarged left atrium, normal left ventricular size, mild concentric left ventricular hypertrophy, visually estimated ejection fraction 55% with no regional wall motion abnormality, grade 1 diastolic dysfunction seen with tissue Doppler evidence of raise left atrial pressure. 2. Thickened and calcified aortic valve without aortic stenosis, there is mild aortic insufficiency. 3. Mild mitral and tricuspid regurgitation. Calculated right ventricular systolic pressure is 32 mmHg 4. No significant pericardial effusion noted. Electronically signed by : Russell Fam, 01/18/2019 06:17:25
--- NOTE | 2019-01-17 08:32 | HMH.ITSHM ---
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 []ATENOLOL JANUVIA CITALOPRAM ATORVASTATIN ALPRAZOLAM VITAMINS
== END ==
PROVIDERS: PCP Nurse Practitioner Family; Visit Provider Nurse Practitioner Family
DX: R06.09 Other forms of dyspnea (principal); R06.02 Shortness of breath
CPT/HCPCS: 78454; 93017; 93306; A9502; J2785

== ENCOUNTER → 2019-02-01 11:37 | Outpatient (CLI) | payer MEDICARE, SELFPAY | PROVIDERS: PCP Nurse Practitioner Family; Visit Provider Physician Assistant | DX: I27.20 Pulmonary hypertension, unspecified (principal); I35.1 Nonrheumatic aortic (valve) insufficiency; R29.6 Repeated falls; R42 Dizziness and giddiness; R55 Syncope and collapse; R94.30 Abnormal result of cardiovascular function study, unspecified | CPT/HCPCS: 93225 ==

== ENCOUNTER → 2019-04-09 10:07 | Outpatient (CLI) | payer MEDICARE, SELFPAY ==
--- NOTE | 2019-04-09 10:21 | XR_ITS ---
PROCEDURE: XR CHEST 2V Patient Age:73Y CLINICAL HISTORY: COUGH, LEFT SIDED PAIN Several days. Left-sided chest pain. History of breast cancer left breast 11 years ago lumpectomy radiation on left at COMPARISON: CHESTW CT chest w con from 05/12/2017 FINDINGS: Left lung is well expanded and clear. Unremarkable. Right chest: Increased markings towards the right infrahilar. question atelectasis possible scant minimal infiltrate RML. There is also generous vascular structures in this area seen on today's lateral view and I believe reflecting on prior CT chest May 2017.. I would note that the overlapping breast tissue also accentuates these markings in this region and overall findings here are less than definitive The heart is normal size with the calcified aortic knob. IMPRESSION: No prominent findings but Note slight increased markings right infrahilar region as discussed in report.-question/suspect minimal infiltrate/and atelectasis right infrahilar region towards RML. Correlation required Dictated by: Cooper Cuba MD 04/09/2019 20:51 Electronically signed by Cooper Cuba MD in [place] 04/09/2019 20:51
== END ==
PROVIDERS: PCP Nurse Practitioner Family; Referring Provider Nurse Practitioner Family; Visit Provider Internal Medicine Adolescent Medicine
DX: R05 Cough (principal); R07.89 Other chest pain
CPT/HCPCS: 71046

== ENCOUNTER → 2019-06-02 14:07 | Outpatient (CLI) | payer MEDICARE, SELFPAY ==
--- NOTE | 2019-06-02 14:07 | MR_ITS ---
PROCEDURE: MR HEAD/BRAIN WO CON CLINICAL INDICATION: hyperreflexxia, gait disturbance Loss of balance with following COMPARISON: HEADWO CT head/brain wo con from 05/18/2017 TECHNIQUE: Routine multiplanar multi echo sequences are performed without gadolinium enhancement. FINDINGS: No midline shift, mass effect, intracranial hemorrhage, or hydrocephalus. No evidence of acute infarction. There are periventricular and subcortical T2 white matter hyperintensities consistent with ischemic gliotic change from microvascular disease. There generalized atrophy with mild prominence of the ventricles likely ex vacuo in nature due to the underlying atrophy. The atrophy is slightly greater in the frontal regions. The cerebellopontine angles, cerebellum, and brainstem are unremarkable. The pituitary, optic chiasm, corpus callosum, and craniocervical junction have an unremarkable appearance. No mastoid effusion or sinus air-fluid level. There is mild opacification of the left ethmoid sinus posteriorly. IMPRESSION: Atrophy with chronic ischemic gliotic change. No acute intracranial findings. Dictated by: Marcos Hudson MD 06/03/2019 10:33 Electronically signed by Marcos Hudson MD in [place] 06/03/2019 10:33
--- NOTE | 2019-06-02 14:07 | MR_ITS ---
PROCEDURE: MR CERVICAL SPINE WO CON CLINICAL INDICATION: hyperreflexxia, gait disturbance COMPARISON: No exams were available for comparison TECHNIQUE: Standard multiplanar multiecho sequences are performed without contrast. 3-D MIP and myelographic images are also rendered and reviewed FINDINGS: There is normal alignment. The cranial cervical junction has an unremarkable appearance. The cord has an unremarkable appearance C2-C3: Unremarkable. C3-C4: Minimal central disc protrusion slightly eccentric to the left versus prominent posterior longitudinal ligament. No impingement. C4-C5: Unremarkable. C5-C6: Degenerative disc disease C6-C7: Minimal bulging disc without impingement. C7-T1: 2 mm anterolisthesis of C7 with mild degenerative disc disease IMPRESSION: 1. Mild degenerative changes as described above. Please see above for detailed description at each level. No neural impingement. 2. No disc herniation or canal stenosis Dictated by: Marcos Hudson MD 06/03/2019 09:52 Electronically signed by Marcos Hudson MD in [place] 06/03/2019 09:52
== END ==
PROVIDERS: PCP Nurse Practitioner Family; Visit Provider Specialist
DX: G20 Parkinson's disease (principal); G31.84 Mild cognitive impairment of uncertain or unknown etiology; R26.9 Unspecified abnormalities of gait and mobility; R29.2 Abnormal reflex; Z85.3 Personal history of malignant neoplasm of breast; Z91.81 History of falling; M54.2 Cervicalgia
CPT/HCPCS: 70551; 72141; 76376

== ENCOUNTER 2019-06-29 10:00 | Outpatient (RCR) | payer MEDICARE, SELFPAY | END 2019-06-29 10:05 | disposition home or self-care (01) | LOC: PT 10:00 | PROVIDERS: PCP Nurse Practitioner Family; Visit Provider Specialist | DX: R26.9 Unspecified abnormalities of gait and mobility (principal); R29.2 Abnormal reflex; G20 Parkinson's disease; Z91.81 History of falling | CPT/HCPCS: 97110; 97112; 97116; 97163; 97530 ==

== ENCOUNTER → 2019-07-28 10:57 | Outpatient (CLI) | payer MEDICARE, SELFPAY ==
[2019-07-28 11:25] LABS: Basophils % 0.6 % (0.1-2.0); Eosinophils # 0.1 K/mm3 (0.0-0.4); Eosinophils % 1.6 % (0.1-12.0); Hemoglobin 12.3 g/dL (12.2-16.2); Lymphocytes # 1.3 K/mm3 (0.7-4.5); Lymphocytes % 19.4 % (10-50); Mean Corpuscular HGB Conc 31.7 g/dL (31.8-35.4); Mean Corpuscular Hemoglobin 30.5 pg (27.0-31.2); Mean Corpuscular Volume 96.2 fl (81-99); Mean Platelet Volume 8.2 fl (7.4-10.4); Monocytes # 0.3 K/mm3 (0.1-1.0); Monocytes % 4.4 % (1.7-9.3); Neutrophils # 4.9 K/mm3 (1.8-7.8); Neutrophils % 73.9 % (37.0-80.0); Platelet Count 211 K/mm3 (142-424); Red Blood Count 4.05 M/mm3 (4.20-5.40); White Blood Count 6.7 K/mm3 (4.8-10.8)
[2019-07-28 11:51] LABS: Chloride 104 mmol/L (98-107); Potassium 4.6 mmoL/L (3.5-5.1); Sodium 141 mmol/L (136-145)
[2019-07-28 11:53] LABS: Blood Urea Nitrogen 24 mg/dl (7-17); Estimated Glomerular Filt Rate 44 ml/min (>60); GFR (African American) 53 ML/MIN (>60)
[2019-07-28 11:54] LABS: Alanine Aminotransferase 23 U/L (12-78); Albumin Level 4.1 g/dl (3.5-5.0); Albumin/Globulin Ratio 1.6 (1.1-1.8); Alkaline Phosphatase 98 U/L (38-126); Anion Gap 14.6 mEq/L (5-15); Aspartate Amino Transferase 28 U/L (14-36); Bilirubin,Total 0.5 mg/dl (0.2-1.3); Calcium 9.8 mg/dl (8.4-10.2); Carbon Dioxide 27 mmol/L (22.0-30.0); Cholesterol 129 mg/dl (140-200); Globulin 2.6 g/dL (1.3-3.2); Glucose 128 mg/dl (74-100); HDL Cholesterol 63 mg/dl (40-60); Total Protein,Serum 6.7 g/dl (6.3-8.2); Triglycerides 93 mg/dl (30-150); VLDL Cholesterol 19 mg/dL (0-40)
[2019-07-28 12:05] LABS: Direct LDL Cholesterol 70.53 mg/dL (100-129)
[2019-07-28 12:51] LABS: Hemoglobin A1C 6.5 % (4.0-6.0)
[2019-07-29 05:37] LABS: Creatinine, Urine 181.1 mg/dL (Not Estab.); Microalbumin, Urine 16.5 ug/mL (Not Estab.)
[2019-07-29 14:34] LABS: Vitamin B12 560 pg/mL (232-1245); Vitamin D 25 Hydroxy 57.7 ng/mL (30.0-100.0)
== END ==
PROVIDERS: Visit Provider Nurse Practitioner Family
DX: I10 Essential (primary) hypertension (principal); D51.9 Vitamin B12 deficiency anemia, unspecified; M81.0 Age-related osteoporosis without current pathological fracture; E11.29 Type 2 diabetes mellitus with other diabetic kidney complication
CPT/HCPCS: 36415; 80053; 80061; 82043; 82570; 82607; 82652; 83036; 85025

== ENCOUNTER 2019-08-16 10:02 | Outpatient (CLI) | payer MEDICARE, SELFPAY ==
[2019-08-16 10:15] VITALS: BP 135/78; PULSE 64; RESP 20; TEMP 37.1; O2SAT 95
[2019-08-16 10:35] VITALS: BP 134/70; PULSE 68; RESP 20; TEMP 36.9; O2SAT 95
== END 2019-08-16 10:40 | disposition home or self-care (01) ==
LOC: INF 10:02
PROVIDERS: PCP Nurse Practitioner Family; Visit Provider Nurse Practitioner Family
DX: M81.0 Age-related osteoporosis without current pathological fracture (principal)
CPT/HCPCS: 96365; J3489

== ENCOUNTER → 2019-09-05 08:00 | Outpatient (CLI) | payer MEDICARE, SELFPAY ==
--- NOTE | 2019-09-05 08:03 | MM_ITS ---
PROCEDURE: MM DIG SCREENING MAMM BI W/CAD DIGITAL BREAST TOMOSYNTHESIS INCLUDED Patient Age:74Y CLINICAL INDICATION: SCREENING no hormones. No new complaints. Previous left lumpectomy with radiation . Family history unremarkable . COMPARISON: [facility] DIG MAMM-SCREEN [facility] from 07/10/2014 [facility] DIG MAMM-SCREEN [facility] from 07/20/2015 [facility] DIG MAMM-SCREEN [facility] W/CAD from 08/01/2016 [facility] MM Dig screening mamm BI w/CAD from 08/05/2017 DIG MAMM-SCREEN [facility] from 09/03/2018 TECHNIQUE: Standard CC and MLO images were obtained. R2 CAD reviewed. Bilateral digital breast tomosynthesis included. Additional axillary CC view left breast the the FINDINGS: minimal residual fibroglandular elements both breast. . Lower density breast Right breast stable appearance with no new areas of concern. Follow-up right mammogram 1 year Minimal fibroglandular elements Left breast lumpectomy site with stable appearance. Left breast is smaller than right due to the lumpectomy. No new areas of significant concern. There are some coarse dense calcifications here which are compatible fat necrosis at lumpectomy site scar, with no significant change since last year. These along with benign secretory calcifications lateral left breast again noted and can be followed annual. IMPRESSION: . Stable bilateral mammogram Post lumpectomy scarring and changes at the left breast again noted. No significant new features either breast. Bilateral follow-up 1 year recommended BI-RAD Category: 2 Benign Finding(s). FOLLOW-UP: 1YR 1 Year Follow-up (A letter has been sent to the patient regarding results of the study.) Dictated by: Cooper Cuba MD 09/08/2019 09:38 Electronically signed by Cooper Cuba MD in [place] 09/08/2019 09:38
== END ==
PROVIDERS: PCP Nurse Practitioner Family; Visit Provider Nurse Practitioner Family
DX: Z12.31 Encounter for screening mammogram for malignant neoplasm of breast (principal)
CPT/HCPCS: 77063; 77067

== ENCOUNTER 2020-01-31 21:00 | Emergency (ER) | payer MEDICARE, SELFPAY ==
[2020-01-31 21:07] VITALS: BP 168/110; PULSE 79; RESP 15; TEMP 37; O2SAT 98; BMI 29.5
--- NOTE | 2020-01-31 21:17 | CT_ITS ---
PROCEDURE: CT ABDOMEN PELVIS W CON CLINICAL INDICATION: n/v/d Nausea, vomiting, diarrhea COMPARISON: CT ABDPELW CT abdomen pelvis w con from 05/12/2017 TECHNIQUE: IV Contrast: 75ML OPTIRAY 350 Oral Contrast None Axial images obtained with sagittal and coronal reformats. All CT scans at the facility use one or more dose reduction, viz: automated exposure control, ma/kV adjustment per patient size (including targeted exams where dose is matched to indication, i.e. head), or iterative reconstruction technique. FINDINGS: LOWER THORAX: No acute finding ABDOMEN & PELVIS: The liver, spleen, adrenal glands, and pancreas have an unremarkable appearance. There may be a small gallstone. Ultrasound may confirm. There is mild thickening of the stomach which could be due to nondistention or gastritis. There is a small hiatal hernia. No renal or ureteral calculi. No hydronephrosis. There are small bilateral renal cyst. Calcific plaque is present at the ostium of the left renal artery. No evidence of appendicitis or diverticulitis. Fluid-filled loops of large bowel are present within the cecum, ascending colon transverse colon and descending colon with a few air-fluid levels. There is also some thickening of the sigmoid colon which could be due to nondistention or colitis. There has been a prior hysterectomy. No pelvic mass or abnormal fluid collection. There is 5 mm anterolisthesis of L4 on L5. Tiny umbilical hernia containing fat IMPRESSION: 1. Hiatal hernia. Thickening of the stomach which could be due to nondistention or gastritis. 2. Fluid-filled loops of large bowel which may be seen with diarrhea disease or colitis. There is also thickening of the sigmoid colon which could be due to nondistention or colitis. 3. Possible cholelithiasis which may be better evaluated with ultrasound. Dictated by: Marcos Hudson MD 02/01/2020 06:32 Marcos Hudson MD in [place] 02/01/2020 06:32
[2020-01-31 21:24] LABS: Appearance,Urine CLOUDY (Clear); Blood, Urine Negative (Negative); Color,Urine DK YELLOW (Yellow); Glucose,Urine (UA) Negative (Negative); Ketones,Urine TRACE (Negative); Leukocyte Esterase,Urine TRACE (Negative); Microscopic, Urine URINE MICROSCOPIC (MICROSCOPIC); Nitrate,Urine Negative (Negative); Protein,Urine 1+ (Negative); Specific Gravity, Urine >= 1.030 (1.005-1.030); Urobilinogen,Urine 0.2 EU/dl (0.2)
[2020-01-31 21:26] LABS: Basophils % 0.2 % (0.1-2.0); Eosinophils # 0.1 K/mm3 (0.0-0.4); Eosinophils % 0.7 % (0.1-12.0); Hematocrit 46.7 % (37.0-47.0); Hemoglobin 15.2 g/dL (12.2-16.2); Lymphocytes # 1.4 K/mm3 (0.7-4.5); Lymphocytes % 12.6 % (10-50); Mean Corpuscular HGB Conc 32.6 g/dL (31.8-35.4); Mean Corpuscular Hemoglobin 30.9 pg (27.0-31.2); Mean Corpuscular Volume 94.8 fl (81-99); Mean Platelet Volume 7.6 fl (7.4-10.4); Monocytes # 0.4 K/mm3 (0.1-1.0); Monocytes % 3.6 % (1.7-9.3); Neutrophils # 9.3 K/mm3 (1.8-7.8); Neutrophils % 82.9 % (37.0-80.0); Platelet Count 311 K/mm3 (142-424); Red Blood Count 4.93 M/mm3 (4.20-5.40); Red Cell Distribution Width 14.4 % (11.5-17.5); White Blood Count 11.2 K/mm3 (4.8-10.8)
[2020-01-31 21:30] VITALS: BP 163/88; PULSE 72; RESP 17; O2SAT 99
[2020-01-31 21:31] LABS: Bilirubin,Urine Negative (Negative); Chloride 100 mmol/L (98-107); Potassium 3.7 mmoL/L (3.5-5.1); Sodium 142 mmol/L (136-145)
[2020-01-31 21:33] LABS: Amylase 119 U/L (30-110)
[2020-01-31 21:34] LABS: Alanine Aminotransferase 21 U/L (12-78); Albumin/Globulin Ratio 1.3 (1.1-1.8); Alkaline Phosphatase 108 U/L (38-126); Anion Gap 15.7 mEq/L (5-15); Aspartate Amino Transferase 28 U/L (14-36); Bilirubin,Total 1.1 mg/dl (0.2-1.3); Blood Urea Nitrogen 25 mg/dl (7-17); Calcium 10.1 mg/dl (8.4-10.2); Carbon Dioxide 30 mmol/L (22.0-30.0); Creatinine Clearance Estimated 45 mL/min (50-200); Estimated Glomerular Filt Rate 44 ml/min (>60); GFR (African American) 53 ML/MIN (>60); Globulin 3.8 g/dL (1.3-3.2); Glucose 149 mg/dl (74-100); Lipase 264 U/L (23-300); Total Protein,Serum 8.8 g/dl (6.3-8.2)
[2020-01-31 21:49] LABS: Bacteria,Urine 2+ /lpf
[2020-01-31 22:00] VITALS: BP 154/84; PULSE 70; RESP 19; O2SAT 99
[2020-01-31 22:30] VITALS: BP 159/87; PULSE 74; RESP 17; O2SAT 99
--- NOTE | 2020-01-31 22:30 | HMH.EDNVD ---
ED Disposition Clinical Impression: Colitis, Renal insufficiency Disposition: Home, Self-Care Condition on Discharge: Good Instructions: DI for Nausea -- Adult Additional Instructions: fluids and call pcp for follow up and urine culture results Prescriptions: levoFLOXacin [Levaquin 500mg tab] 500 mg PO DAILY #7 tab Transmission Status: Pending to [id number] Referrals: Holly Cortés APRN [Primary Care Provider] - - Critical Care Critical Care Time: No Attestation: On 01/31/20, the high probability of a clinically significant, sudden or life threatening deterioration of the following system(s) required my full and direct attention, intervention and personal management. The time I documented below is in addition to time spent performing reported procedures but includes the following listed in this critical care notation. Medical Decision Making - Medical Records Medical records reviewed: Yes: I reviewed the patient's medical records. - Brian Inquiry Pt receiving controlled substance: No Vital Signs: 01/31/20 21:07 01/31/20 21:30 Temperature 98.6 F Temperature Source Oral Pulse Rate [Right Brachial] 79 72 Respiratory Rate 15 17 Blood Pressure [Right Arm] 168/110 H 163/88 H Blood Pressure Mean [Right Arm] 129 113 Blood Pressure Source [Right Arm] Automatic Cuff Automatic Cuff Blood Pressure Position [Right Arm] Sitting Supine 02 Sat by Pulse Oximetry 98 99 Oxygen Delivery Method Room Air Room Air - Lab Data Lab results reviewed: Yes: I reviewed the patient's lab results. Lab Results 01/31/20 21:10: Urine Color Dk yellow, Urine Appearance Cloudy, Urine pH 6.0, Ur Specific [place] >= 1.030, Urine Protein 1+, Urine Glucose (UA) Negative, Urine Ketones Trace, Urine Blood Negative, Urine Nitrate Negative, Urine Bilirubin Negative, Urine Urobilinogen 0.2, Ur Leukocyte Esterase Trace, Urine RBC 3-5, Urine WBC 10-20, Ur Squamous Epith Cells 5-10, Urine Bacteria 2+, Hyaline Casts 10-20, Fine Granular Casts 3-5 01/31/20 21:10: WBC 11.2 H, RBC 4.93, Hgb 15.2, Hct 46.7, MCV 94.8, MCH 30.9, MCHC 32.6, RDW 14.4, Plt Count 311, MPV 7.6, Neut % (Auto) 82.9 H, Lymph % (Auto) 12.6, [place] % (Auto) 3.6, Eos % (Auto) 0.7, Baso % (Auto) 0.2, Neut # (Auto) 9.3 H, Lymph # (Auto) 1.4, [place] # (Auto) 0.4, Eos # (Auto) 0.1, Baso # (Auto) 0.0 01/31/20 21:10: Sodium 142, Potassium 3.7, Chloride 100, Carbon Dioxide 30, Anion Gap 15.7 H, BUN 25 H, Creatinine 1.20 H, Estimated Creat Clear 45, Estimated GFR 44 L, Est GFR ( Amer) 53 L, Glucose 149 H, Calcium 10.1, Total Bilirubin 1.1, AST 28, ALT 21, Alkaline Phosphatase 108, Total Protein 8.8 H D, Albumin 5.0, Globulin 3.8 H, Albumin/Globulin Ratio 1.3, Amylase 119 H, Lipase 264 Result diagrams: 01/31/20 21:10 01/31/20 21:10 Orders (Tests/Meds): ED MEDICATIONS Generic Name Dose Route Start Last Admin Trade Name Freq PRN Reason Stop Dose Admin Sodium Chloride 1,000 mls @ 999 mls/hr 01/31/20 21:30 01/31/20 21:23 Sod Chlor 0.9% 1000ml Bag IV 01/31/20 22:30 999 mls/hr .Q1H1M AMPARO Administration Discontinued Medications Generic Name Dose Route Start Last Admin Trade Name Freq PRN Reason Stop Dose Admin Iopamidol 75 ml 01/31/20 22:14 01/31/20 22:15 Iopamidol-370 (76%);100ml Bottle IV 01/31/20 22:15 75 ml ONCE ONE Administration Ondansetron HCl 4 mg 01/31/20 21:17 01/31/20 21:23 Ondansetron 4mg/2ml Vial IV 01/31/20 21:18 4 mg ONCE ONE Administration Sodium Chloride 10 ml 01/31/20 22:14 01/31/20 22:15 Sodium Chloride 0.9% 10ml Syr (Rad Only) IV 01/31/20 22:15 10 ml ONCE ONE Administration ORDERS Category Date Time Status CT abdomen pelvis w con Stat Cat Scan 01/31/20 21:17 Taken Urine Culture Stat Micro 01/31/20 21:10 Received - CT Data CT Scan: Abdomen, Pelvis Time Received: 22:[address] Reviewed: Yes: I have viewed the radiologist's interpretation Preliminary Findings: Abnormal (possible col
[2020-01-31 22:55] VITALS: BP 125/74; PULSE 73; RESP 15; TEMP 36.8; O2SAT 98
--- NOTE | 2020-01-31 22:58 | PC.NURSE ---
pt refused admission
[2020-01-31 23:00] VITALS: BP 185/92; PULSE 78; RESP 19; O2SAT 99
== END 2020-01-31 23:07 | disposition home or self-care (01) ==
PROVIDERS: Emergency Provider Emergency Medicine; PCP Nurse Practitioner Family
DX: K52.9 Noninfective gastroenteritis and colitis, unspecified (principal); N28.9 Disorder of kidney and ureter, unspecified; I25.10 Atherosclerotic heart disease of native coronary artery without angina pectoris; F41.8 Other specified anxiety disorders; E11.9 Type 2 diabetes mellitus without complications; K21.9 Gastro-esophageal reflux disease without esophagitis; E78.5 Hyperlipidemia, unspecified; I10 Essential (primary) hypertension; Z90.710 Acquired absence of both cervix and uterus; Z79.899 Other long term (current) drug therapy
CPT/HCPCS: 74177; 80053; 81001; 82150; 83690; 85025; 87086; 96365; 96375; 99284; J2405; Q9967

== ENCOUNTER → 2020-05-10 12:27 | Outpatient (CLI) | payer MEDICARE, SELFPAY ==
--- NOTE | 2020-05-10 12:55 | XR_ITS ---
PROCEDURE: XR KNEE RT 3V CLINICAL INDICATION: RT KNEE PAIN COMPARISON: No exams were available for comparison FINDINGS: No fracture or dislocation. No lytic or blastic change. There is normal mineralization. The joint spaces are well-preserved. No significant degenerative/arthritic changes. No erosive changes evident. Other findings:There is a small bone island in the proximal tibia IMPRESSION: No acute findings. Dictated by: Marcos Hudson MD 05/10/2020 13:09 Marcos Hudson MD in [place] 05/10/2020 13:09
[2020-05-10 13:01] LABS: Basophils % 0.4 % (0.1-2.0); Eosinophils # 0.1 K/mm3 (0.0-0.4); Eosinophils % 0.7 % (0.1-12.0); Hematocrit 39.7 % (37.0-47.0); Hemoglobin 12.4 g/dL (12.2-16.2); Lymphocytes % 12.8 % (10-50); Mean Corpuscular HGB Conc 31.2 g/dL (31.8-35.4); Mean Corpuscular Hemoglobin 29.7 pg (27.0-31.2); Mean Corpuscular Volume 95.1 fl (81-99); Mean Platelet Volume 7.6 fl (7.4-10.4); Monocytes # 0.3 K/mm3 (0.1-1.0); Monocytes % 4.3 % (1.7-9.3); Neutrophils # 6.1 K/mm3 (1.8-7.8); Neutrophils % 81.8 % (37.0-80.0); Platelet Count 226 K/mm3 (142-424); Red Blood Count 4.18 M/mm3 (4.20-5.40); Red Cell Distribution Width 13.9 % (11.5-17.5); White Blood Count 7.4 K/mm3 (4.8-10.8)
[2020-05-10 13:05] LABS: Hemoglobin A1C 6.5 % (4.0-6.0)
[2020-05-10 13:24] LABS: Alanine Aminotransferase 5 U/L (12-78); Albumin Level 4.3 g/dl (3.5-5.0); Albumin/Globulin Ratio 1.4 (1.1-1.8); Alkaline Phosphatase 104 U/L (38-126); Anion Gap 9.7 mEq/L (5-15); Aspartate Amino Transferase 26 U/L (14-36); Bilirubin,Total 0.9 mg/dl (0.2-1.3); Blood Urea Nitrogen 16 mg/dl (7-17); Calcium 9.9 mg/dl (8.4-10.2); Carbon Dioxide 29 mmol/L (22.0-30.0); Chloride 106 mmol/L (98-107); Chol/HDL Ratio 2.5 (1-3.5); Cholesterol 138 mg/dl (140-200); Estimated Glomerular Filt Rate 70 ml/min (>60); GFR (African American) 85 ML/MIN (>60); Glucose 161 mg/dl (74-100); HDL Cholesterol 55 mg/dl (40-60); Potassium 4.7 mmoL/L (3.5-5.1); Sodium 140 mmol/L (136-145); Total Protein,Serum 7.3 g/dl (6.3-8.2); Triglycerides 97 mg/dl (30-150); VLDL Cholesterol 19 mg/dL (0-40)
[2020-05-10 13:35] LABS: Direct LDL Cholesterol 56.61 mg/dL (100-129)
[2020-05-10 13:40] LABS: 25-OH Vitamin D, Total 39.7 ng/mL (30-100)
[2020-05-10 13:54] LABS: Thyroid Stimulating Hormone 2.04 uIU/mL (0.465-4.68)
[2020-05-10 14:13] LABS: Vitamin B12 616 pg/mL (239-931)
== END ==
LOC: LAB 12:28 → RAD 12:50
PROVIDERS: PCP Nurse Practitioner Family; Visit Provider Nurse Practitioner Family
DX: E11.29 Type 2 diabetes mellitus with other diabetic kidney complication (principal); N18.31 Chronic kidney disease, stage 3a; E55.9 Vitamin D deficiency, unspecified; E53.8 Deficiency of other specified B group vitamins; M25.561 Pain in right knee
CPT/HCPCS: 36415; 73562; 80053; 80061; 82306; 82607; 83036; 84443; 85025

== ENCOUNTER → 2020-05-28 13:50 | Outpatient (CLI) | payer MEDICARE, SELFPAY ==
--- NOTE | 2020-05-28 15:28 | CT_ITS ---
PROCEDURE: CT ABDOMEN PELVIS W CON CLINICAL INDICATION: LUQ PAIN, NAUSEA,VOMITING COMPARISON: CT CT ABDOMEN PELVIS W CON from 01/31/2020 TECHNIQUE: IV Contrast: 75ML Isovue 370 Oral Contrast None Axial images obtained with sagittal and coronal reformats. All CT scans at the facility use one or more dose reduction, viz: automated exposure control, ma/kV adjustment per patient size (including targeted exams where dose is matched to indication, i.e. head), or iterative reconstruction technique. FINDINGS: LOWER THORAX: No acute finding ABDOMEN & PELVIS: Mild nonspecific thickening noted involving the esophagus at the GE junction. The liver, gallbladder, spleen, and adrenal glands have an unremarkable appearance. Unremarkable appearing pancreas. No renal or ureteral calculi hydronephrosis or renal mass evident. Small bilateral cortical cysts are present within the kidneys. No evidence of appendicitis. Prior hysterectomy. No intestinal obstruction or free air. No evidence of diverticulitis degenerative changes are present in the lumbar spine with mild anterolisthesis of L4 on L5 of 4 mm. IMPRESSION: No acute finding Dictated by: Marcos Hudson MD 05/28/2020 17:12 Marcos Hudson MD in [place] 05/28/2020 17:12
[2020-05-28 15:36] LABS: Alanine Aminotransferase 20 U/L (12-78); Albumin Level 4.4 g/dl (3.5-5.0); Albumin/Globulin Ratio 1.4 (1.1-1.8); Alkaline Phosphatase 116 U/L (38-126); Amylase 89 U/L (30-110); Anion Gap 12.6 mEq/L (5-15); Aspartate Amino Transferase 30 U/L (14-36); Bilirubin,Total 0.9 mg/dl (0.2-1.3); Blood Urea Nitrogen 36 mg/dl (7-17); Calcium 10.2 mg/dl (8.4-10.2); Carbon Dioxide 24 mmol/L (22.0-30.0); Chloride 108 mmol/L (98-107); Estimated Glomerular Filt Rate 37 ml/min (>60); GFR (African American) 44 ML/MIN (>60); Globulin 3.2 g/dL (1.3-3.2); Glucose 128 mg/dl (74-100); Lipase 183 U/L (23-300); Potassium 4.6 mmoL/L (3.5-5.1); Sodium 140 mmol/L (136-145); Total Protein,Serum 7.6 g/dl (6.3-8.2)
== END ==
PROVIDERS: PCP Internal Medicine Adolescent Medicine; Visit Provider Nurse Practitioner Family
DX: Z01.818 Encounter for other preprocedural examination (principal); Z20.822 Contact with and (suspected) exposure to COVID-19; R10.12 Left upper quadrant pain; R11.2 Nausea with vomiting, unspecified; R19.7 Diarrhea, unspecified; K30 Functional dyspepsia
CPT/HCPCS: 36415; 74177; 80053; 82150; 83690; Q9967; U0003

== ENCOUNTER 2020-08-31 09:15 | Outpatient (CLI) | payer MEDICARE, SELFPAY ==
[2020-08-31 09:21] VITALS: BMI 26.6
[2020-08-31 10:03] LABS: Albumin Level 4.4 g/dl (3.5-5.0); Calcium 9.3 mg/dl (8.4-10.2); Creatinine Clearance Estimated 48 mL/min (50-200); Estimated Glomerular Filt Rate 54 ml/min (>60); GFR (African American) 65 ML/MIN (>60)
[2020-08-31 10:35] VITALS: BP 123/68; PULSE 60; RESP 16; TEMP 36.4; O2SAT 96
[2020-08-31 10:50] VITALS: BP 127/68; PULSE 61; RESP 16
== END 2020-08-31 10:55 | disposition home or self-care (01) ==
LOC: INF 09:19
PROVIDERS: Visit Provider Nurse Practitioner Family
DX: M81.0 Age-related osteoporosis without current pathological fracture (principal)
CPT/HCPCS: 82040; 82310; 82565; 96374; J3489

== ENCOUNTER → 2020-09-06 10:17 | Outpatient (CLI) | payer MEDICARE, SELFPAY ==
--- NOTE | 2020-09-06 10:20 | MM_ITS ---
PROCEDURE INFORMATION: Exam: MG Screening 3D Mammography Exam date and time: 09/06/2020 10:20 AM Age: 75 years old Clinical indication: Encounter for screening mammogram for malignant neoplasm of breast . Personal history of left breast cancer TECHNIQUE: Imaging protocol: Screening tomosynthesis and 2D mammography including computer-aided detection (CAD) when performed. COMPARISON: 1. MG MM DIG SCREENING MAMM BI W/CAD 09/05/2019 8:03 AM 2. MG DIG MAMM-SCREEN [facility]ANE 09/03/2018 8:43 AM FINDINGS: MAMMOGRAPHY: Breast composition: The breast tissue is composed of scattered areas of fibroglandular density. Mass: None. Architectural distortion: Stable post operative architectural distortion in the left central breast due to prior lumpectomy for carcinoma. Calcifications: Stable linear calcifications in the middle third of the left upper outer quadrant Asymmetric density: None. Skin thickening: None. Axillary adenopathy: None. IMPRESSION: No mammographic evidence of malignancy. Annual screening is recommended unless otherwise clinically indicated. ASSESSMENT: BI-RADS Category 2: Benign
== END ==
PROVIDERS: PCP Internal Medicine Adolescent Medicine; Visit Provider Internal Medicine Adolescent Medicine
DX: Z12.31 Encounter for screening mammogram for malignant neoplasm of breast (principal)
CPT/HCPCS: 77063; 77067

== ENCOUNTER → 2020-12-18 11:21 | Outpatient (CLI) | payer MEDICARE, SELFPAY ==
[2020-12-18 11:47] LABS: Basophils % 0.4 % (0.1-2.0); Eosinophils # 0.1 K/mm3 (0.0-0.4); Eosinophils % 1.4 % (0.1-12.0); Hematocrit 40.1 % (37.0-47.0); Hemoglobin 12.5 g/dL (12.2-16.2); Lymphocytes # 1.3 K/mm3 (0.7-4.5); Lymphocytes % 19.5 % (10-50); Mean Corpuscular HGB Conc 31.3 g/dL (31.8-35.4); Mean Corpuscular Hemoglobin 30.2 pg (27.0-31.2); Mean Corpuscular Volume 96.4 fl (81-99); Mean Platelet Volume 7.5 fl (7.4-10.4); Monocytes # 0.3 K/mm3 (0.1-1.0); Monocytes % 3.8 % (1.7-9.3); Neutrophils # 4.8 K/mm3 (1.8-7.8); Neutrophils % 74.8 % (37.0-80.0); Platelet Count 269 K/mm3 (142-424); Red Blood Count 4.16 M/mm3 (4.20-5.40); Red Cell Distribution Width 13.8 % (11.5-17.5); White Blood Count 6.4 K/mm3 (4.8-10.8)
[2020-12-18 13:10] LABS: Alanine Aminotransferase 20 U/L (12-78); Albumin Level 4.2 g/dl (3.5-5.0); Albumin/Globulin Ratio 1.4 (1.1-1.8); Alkaline Phosphatase 94 U/L (38-126); Anion Gap 14.3 mEq/L (5-15); Aspartate Amino Transferase 27 U/L (14-36); Bilirubin,Total 0.6 mg/dl (0.2-1.3); Blood Urea Nitrogen 25 mg/dl (7-17); Calcium 9.7 mg/dl (8.4-10.2); Carbon Dioxide 30 mmol/L (22.0-30.0); Chloride 104 mmol/L (98-107); Chol/HDL Ratio 2.8 (1-3.5); Cholesterol 171 mg/dl (140-200); Estimated Glomerular Filt Rate 48 ml/min (>60); GFR (African American) 58 ML/MIN (>60); Globulin 3.1 g/dL (1.3-3.2); Glucose 154 mg/dl (74-100); HDL Cholesterol 62 mg/dl (40-60); Potassium 4.3 mmoL/L (3.5-5.1); Sodium 144 mmol/L (136-145); Total Protein,Serum 7.3 g/dl (6.3-8.2); Triglycerides 90 mg/dl (30-150); VLDL Cholesterol 18 mg/dL (0-40)
[2020-12-18 13:20] LABS: Direct LDL Cholesterol 86.94 mg/dL (100-129)
[2020-12-18 13:27] LABS: 25-OH Vitamin D, Total 46.4 ng/mL (30-100)
[2020-12-18 13:58] LABS: Vitamin B12 389 pg/mL (239-931)
[2020-12-18 16:02] LABS: Creatinine,Urine Random 176 mg/dL (Not Estab.)
[2020-12-18 16:05] LABS: Microalbumin/Creatinine Ratio 16.7
== END ==
PROVIDERS: Visit Provider Nurse Practitioner Family
DX: E11.29 Type 2 diabetes mellitus with other diabetic kidney complication (principal); I10 Essential (primary) hypertension; E53.8 Deficiency of other specified B group vitamins; E55.9 Vitamin D deficiency, unspecified
CPT/HCPCS: 36415; 80053; 80061; 82043; 82306; 82570; 82607; 83036; 85025

== ENCOUNTER → 2020-12-27 08:46 | Outpatient (CLI) | payer MEDICARE, SELFPAY ==
--- NOTE | 2020-12-27 08:55 | XR_ITS ---
PROCEDURE: XR DEXA AXIAL SKELETON CLINICAL HISTORY: AGE RELATED OSTEOPOROSIS COMPARISON: CR DEXAAX XR DEXA axial skeleton from 07/08/2018 FINDINGS: The right hip BMD is 0.60 with a T-score of -2.2. The left hip BMD is 0.630 with a T-score of -2.6. The lumbar spine BMD is 0.775 with a T-score of -2.5. Previously the lowest density was in the left femoral neck with a T-score -2.5 IMPRESSION: This patient is considered osteoporotic according to the World Health Organization criteria. Fracture risk is high. Treatment is advised. Based on these results a follow-up exam is recommended in 1 year. Dictated by: Marcos Hudson MD 12/28/2020 16:11 Marcos Hudson MD in [place] 12/28/2020 16:11
== END ==
PROVIDERS: PCP Nurse Practitioner Family; Visit Provider Nurse Practitioner Family
DX: M81.0 Age-related osteoporosis without current pathological fracture (principal)
CPT/HCPCS: 77080

== ENCOUNTER → 2020-12-31 09:10 | Outpatient (POV) | payer MEDICARE, SELFPAY | PROVIDERS: Visit Provider Nurse Practitioner Family | DX: Z00.00 Encounter for general adult medical examination without abnormal findings (principal) ==

== ENCOUNTER → 2021-05-02 11:12 | Outpatient (CLI) | payer MEDICARE, SELFPAY ==
[2021-05-03 13:41] LABS: Covid-19 Nasal PCR Sendout Lex NOT DETECTED
== END ==
PROVIDERS: Visit Provider Nurse Practitioner
DX: Z20.822 Contact with and (suspected) exposure to COVID-19 (principal)
CPT/HCPCS: C9803; U0004; U0005

== ENCOUNTER → 2021-07-27 13:18 | Outpatient (CLI) | payer MEDICARE, SELFPAY ==
[2021-07-27 15:24] LABS: Microscopic, Urine URINE MICROSCOPIC (MICROSCOPIC)
[2021-07-27 16:04] LABS: Appearance,Urine CLEAR (Clear); Bilirubin,Urine Negative (Negative); Blood, Urine Negative (Negative); Color,Urine YELLOW (Yellow); Glucose,Urine (UA) Negative (Negative); Ketones,Urine Negative (Negative); Leukocyte Esterase,Urine Negative (Negative); Nitrate,Urine Negative (Negative); Protein,Urine TRACE (Negative); Specific Gravity, Urine >= 1.030 (1.005-1.030); Urobilinogen,Urine 0.2 EU/dl (0.2)
[2021-07-27 16:43] LABS: Squamous Epithelial Cell,Urine Occasional #/hpf (0-5)
== END ==
PROVIDERS: PCP Internal Medicine Adolescent Medicine; Visit Provider Internal Medicine Adolescent Medicine
DX: R30.0 Dysuria (principal)
CPT/HCPCS: 81001; 87086

== ENCOUNTER → 2021-09-09 10:34 | Outpatient (CLI) | payer MEDICARE, SELFPAY ==
--- NOTE | 2021-09-09 10:39 | MM_ITS ---
PROCEDURE INFORMATION: Exam: MG Bilateral Screening 3D Mammography Exam date and time: 09/09/2021 10:38 AM Age: 76 years old Clinical indication: Screening examination TECHNIQUE: Imaging protocol: Bilateral Screening tomosynthesis and 2D mammography including computer-aided detection (CAD) when performed. COMPARISON: 1. MG MM DIG SCREENING MAMM BI W/CAD 09/06/2020 10:20 AM 2. MG MM DIG SCREENING MAMM BI W/CAD 09/05/2019 8:03 AM 3. MG DIG MAMM-SCREEN DUANE 09/03/2018 8:43 AM 4. MG [facility] MM Dig screening mamm BI w/CAD 08/05/2017 4:20 PM FINDINGS: MAMMOGRAPHY: Breast composition: There are scattered areas of fibroglandular density. Mass: None. Architectural distortion: No new or suspicious architectural distortion. Calcifications: No new or suspicious calcifications are present Asymmetric density: No new or suspicious asymmetric density is present Skin thickening: None. Axillary adenopathy: None. Other findings: The there are stable postoperative findings within the left breast. IMPRESSION: No mammographic evidence of malignancy. Recommend annual screening mammography unless otherwise clinically indicated. ASSESSMENT: BI-RADS category 2: Benign
== END ==
PROVIDERS: PCP Nurse Practitioner Family; Visit Provider Nurse Practitioner Family
DX: Z12.31 Encounter for screening mammogram for malignant neoplasm of breast (principal)
CPT/HCPCS: 77063; 77067

== ENCOUNTER → 2021-09-17 14:42 | Outpatient (POV) | payer MEDICARE, SELFPAY | PROVIDERS: Visit Provider Dermatology | DX: Z00.00 Encounter for general adult medical examination without abnormal findings (principal) ==

== ENCOUNTER → 2021-09-27 13:41 | Outpatient (CLI) | payer MEDICARE, SELFPAY ==
--- NOTE | 2021-09-27 13:41 | MR_ITS ---
FINAL REPORT CLINICAL HISTORY: worsening memory, inappropriate words. History breast cancer x13 years ago. patient has parkinson's disease. unsteadiness. COMPARISON: June 02, 2019 FINDINGS: Multiplanar MR imaging of the brain was performed without contrast. There is atrophy. There are several foci of increased T2 signal in the cerebral white matter that have a nonspecific appearance but likely represent moderate chronic ischemic/gliotic changes. There is no evidence of intracranial hemorrhage or mass. No abnormal ventricular dilatation is identified. No abnormal extra-axial fluid collection is seen. No abnormality is seen on the diffusion weighted images. The posterior fossa and brainstem are unremarkable. Normal major vessel vascular flow voids are seen. There is mild mucosal thickening in the sinuses. IMPRESSION: Atrophy with moderate chronic ischemic/gliotic change. Stable from prior. No acute intracranial abnormality. Reviewed, Interpreted and Dictated by Rafat Hernadez III, MD Transcribed by Kashif Dueñas Authenticated and [facility]
== END ==
PROVIDERS: PCP Nurse Practitioner Family; Visit Provider Nurse Practitioner Family
DX: G20 Parkinson's disease (principal); G47.52 REM sleep behavior disorder; R41.9 Unspecified symptoms and signs involving cognitive functions and awareness; W19.XXXA Unspecified fall, initial encounter
CPT/HCPCS: 70551

== ENCOUNTER 2021-10-29 15:09 | Emergency (ER) | payer MEDICARE, SELFPAY ==
[2021-10-29 15:39] VITALS: BP 140/73; PULSE 68; RESP 18; TEMP 36.9; O2SAT 100; BMI 26.3
--- NOTE | 2021-10-29 15:39 | HMH.EDUTC ---
[facility] [place] [facility] Disposition Clinical Impression: Exposure to COVID-19 virus, Bronchitis Sinusitis Qualifiers: Sinusitis location: unspecified location Chronicity: acute Recurrence: non-recurrent Qualified Code(s): J01.90 - Acute sinusitis, unspecified Disposition: Home, Self-Care Condition on Discharge: Good Instructions: DI for Sinusitis Additional Instructions: Drink plenty of fluids. Take tylenol or ibuprofen for pain or fever. Take the medications as directed. Follow up with your regular doctor. GO TO THE ER FOR ANY WORSENING SYMPTOMS Quarantine until you know the results of your covid-19 test. Notify your school or workplace of your results and follow their instructions regarding return to work/school. Prescriptions: Benzonatate [Benzonatate 100mg cap] 100 mg PO TIDP PRN #30 cap PRN Reason: Cough [facility]: [id number] guaiFENesin [Mucinex 600mg tablet] 1 - 2 tab PO BIDP PRN #30 tab PRN Reason: Congestion Transmission Status: [id number] Azithromycin [Z-Arsh 250mg Tab*] 250 mg PO UD DOSE PK #6 tab Transmission Status: Received by [id number] Referrals: Holly Cortés APRN [Primary Care Provider] - Time of Disposition: 16:11 Medical Decision Making - Medical Records Medical records reviewed: No: I reviewed the patient's medical records. - Brian Inquiry Pt receiving controlled substance: No Vital Signs: 10/29/21 15:39 10/29/21 16:12 Temperature 98.4 F 98.4 F Temperature Source Oral Pulse Rate 68 Pulse Rate [Left] 68 Respiratory Rate 18 18 Blood Pressure 140/73 Blood Pressure [Right Arm] 140/73 Blood Pressure Mean [Right Arm] 95 02 Sat by Pulse Oximetry 100 [facility] [place] [facility] HPI - General Stated complaint: coved test,weakness,cough runny nose Time Seen by Provider: 10/29/21 15:39 - History of Present Illness Provider Complaint: She states that for the past 3 days she has sinus congestion and a scratchy throat. - Related Data Home Medications Medication Instructions Recorded Confirmed ALPRAZolam [Alprazolam Xr 0.5mg 0.5 mg PO NEEDED PRN 05/18/17 10/16/21 Tab] Atorvastatin Calcium [Atorvastatin 40 mg PO DAILY 05/18/17 10/16/21 40mg Tab] Aspirin [Aspir 81] 81 mg PO DAILY 09/01/17 10/16/21 buspirone 10 mg tablet 10 mg PO DAILY PRN tab 02/01/19 10/16/21 cholecalciferol (vitamin D3) 25 1,000 unit PO DAILY 02/01/19 10/16/21 mcg (1,000 unit) capsule citalopram 10 mg tablet 10 mg PO DAILY 02/01/19 10/16/21 omeprazole 20 mg capsule,delayed 20 mg PO DAILY PRN 02/01/19 10/16/21 release vitamin B complex 1 tab PO DAILY 02/01/19 10/16/21 sitagliptin 100 mg tablet 100 mg PO DAILY tab 05/23/19 10/16/21 atenolol 100 mg tablet 50 mg PO DAILY tab 10/17/19 10/16/21 empagliflozin 10 mg tablet 10 mg PO DAILY tab 10/16/21 10/16/21 mupirocin 2 % topical ointment TP 10/16/21 10/16/21 Previous Rx's Medication Instructions Recorded rotigotine 6 mg/24 hour 6 mg TRANSDERMA DAILY 7 Days #30 04/09/21 transdermal 24 hour patch each Azithromycin [Z-Arsh 250mg Tab*] 250 mg PO UD DOSE PK #6 tab 10/29/21 Benzonatate [Benzonatate 100mg 100 mg PO TIDP PRN #30 cap 10/29/21 cap] guaiFENesin [Mucinex 600mg tablet] 1 - 2 tab PO BIDP PRN #30 tab 10/29/21 Allergies Allergy/AdvReac Type Severity Reaction Status Date / Time No Known Allergies Allergy Verified 10/29/21 15:41 [facility] History - Hepatitis A Screen Attestation statement:: This patient has been screened for Hepatitis A risk factors. I have reviewed the patient's past medical history: Yes Medical History: Reports:: Anxiety, Cancer, Coronary Artery Disease, Depression, Diabetes Mellitus Type 2, Gastroesophageal Reflux Disease(GERD), Hyperlipidemia, Hypertension Denies:: Diabetes Mellitus Type 1, Internal Pacemaker, Lung Disease, MRSA, Seizures Other Medical History: Reports: Arthritis, Cataracts, Chemotherapy, Radiation Therapy, Other Comment:
[2021-10-29 16:12] VITALS: BP 140/73; PULSE 68; RESP 18; TEMP 36.9
== END 2021-10-29 16:16 | disposition home or self-care (01) ==
PROVIDERS: Emergency Provider Nurse Practitioner Family; PCP Nurse Practitioner Family
DX: J01.90 Acute sinusitis, unspecified (principal); R53.1 Weakness; Z20.822 Contact with and (suspected) exposure to COVID-19; I10 Essential (primary) hypertension; I25.10 Atherosclerotic heart disease of native coronary artery without angina pectoris; K21.9 Gastro-esophageal reflux disease without esophagitis; E78.5 Hyperlipidemia, unspecified; E11.9 Type 2 diabetes mellitus without complications; M19.90 Unspecified osteoarthritis, unspecified site; F32.A Depression, unspecified; F41.9 Anxiety disorder, unspecified; Z85.3 Personal history of malignant neoplasm of breast; Z92.21 Personal history of antineoplastic chemotherapy; Z92.3 Personal history of irradiation; Z83.3 Family history of diabetes mellitus
CPT/HCPCS: 99213; C9803; G0463; U0003; U0005

== ENCOUNTER 2021-11-19 09:50 | Outpatient (CLI) | payer MEDICARE, SELFPAY ==
[2021-11-19 10:02] VITALS: BMI 26.6
[2021-11-19 10:36] LABS: Calcium 8.6 mg/dl (8.4-10.2); Creatinine Clearance Estimated 41 mL/min (50-200); Estimated Glomerular Filt Rate 44 ml/min (>60); GFR (African American) 53 ML/MIN (>60)
[2021-11-19 10:49] VITALS: BP 121/69; PULSE 66; RESP 18; TEMP 36.4; O2SAT 97
[2021-11-19 11:15] VITALS: BP 130/65; PULSE 69; RESP 18; O2SAT 97
== END 2021-11-19 11:15 | disposition home or self-care (01) ==
LOC: INF 09:51
PROVIDERS: PCP Nurse Practitioner Family; Visit Provider Internal Medicine Adolescent Medicine
DX: M81.0 Age-related osteoporosis without current pathological fracture (principal)
CPT/HCPCS: 82040; 82310; 82565; 96374; J3489

== ENCOUNTER → 2022-03-07 15:33 | Outpatient (CLI) | payer MEDICARE, SELFPAY ==
--- NOTE | 2022-03-07 15:33 | MR_ITS ---
FINAL REPORT CLINICAL HISTORY: Evaluate for CVA. WEAKNESS ON RIGHT SIDE. SYMPTOMS X2WKS. DIZZINESS. COMPARISON: September 2021 FINDINGS: Multi planar MR imaging was obtained through the brain without contrast. The midline structures appear intact. There is no evidence of Chiari malformation. On T2 and flair axial images there are moderate changes of atrophy. There are mild changes of chronic microvascular ischemia. On diffusion-weighted images there is no evidence of restricted diffusion. There is minimal mucoperiosteal thickening in the posterior left ethmoid air cell. The seventh and eighth nerve root complexes are intact. IMPRESSION: Moderate atrophy with mild chronic microvascular ischemia. No acute intracranial abnormality. Reviewed, Interpreted and Dictated by Akhil Benitez MD Transcribed by Kashif Dueñas Authenticated and [facility]
== END ==
PROVIDERS: PCP Nurse Practitioner Family; Visit Provider Nurse Practitioner Family
DX: M21.831 Other specified acquired deformities of right forearm (principal); R26.9 Unspecified abnormalities of gait and mobility; R29.810 Facial weakness
CPT/HCPCS: 70551

== ENCOUNTER → 2022-06-19 13:35 | Outpatient (CLI) | payer MEDICARE, SELFPAY ==
[2022-06-19 14:48] LABS: Basophils % 0.4 % (0.1-2.0); Eosinophils # 0.1 K/mm3 (0.0-0.4); Eosinophils % 0.7 % (0.1-12.0); Hematocrit 42.8 % (37.0-47.0); Hemoglobin 13.3 g/dL (12.2-16.2); Lymphocytes # 1.8 K/mm3 (0.7-4.5); Lymphocytes % 21.1 % (10-50); Mean Corpuscular HGB Conc 31.1 g/dL (31.8-35.4); Mean Corpuscular Hemoglobin 29.8 pg (27.0-31.2); Mean Corpuscular Volume 95.6 fl (81-99); Mean Platelet Volume 8.1 fl (7.4-10.4); Monocytes # 0.4 K/mm3 (0.1-1.0); Monocytes % 4.5 % (1.7-9.3); Neutrophils # 6.3 K/mm3 (1.8-7.8); Neutrophils % 73.1 % (37.0-80.0); Platelet Count 298 K/mm3 (142-424); Red Blood Count 4.47 M/mm3 (4.20-5.40); Red Cell Distribution Width 14.5 % (11.5-17.5); White Blood Count 8.6 K/mm3 (4.8-10.8)
[2022-06-19 15:14] LABS: Hemoglobin A1C 7.5 % (4.0-6.0)
[2022-06-19 15:21] LABS: Alanine Aminotransferase 44 U/L (12-78); Albumin Level 4.4 g/dl (3.5-5.0); Albumin/Globulin Ratio 1.5 (1.1-1.8); Alkaline Phosphatase 135 U/L (38-126); Amylase 82 U/L (30-110); Anion Gap 13.5 mEq/L (5-15); Aspartate Amino Transferase 36 U/L (14-36); Bilirubin,Total 0.9 mg/dl (0.2-1.3); Blood Urea Nitrogen 30 mg/dl (7-17); Calcium 8.8 mg/dl (8.4-10.2); Carbon Dioxide 28 mmol/L (22.0-30.0); Chloride 103 mmol/L (98-107); Estimated Glomerular Filt Rate 34 ml/min (>60); GFR (African American) 41 ML/MIN (>60); Globulin 2.9 g/dL (1.3-3.2); Glucose 150 mg/dl (74-100); Lipase 89 U/L (23-300); Potassium 4.5 mmoL/L (3.5-5.1); Sodium 140 mmol/L (136-145); Total Protein,Serum 7.3 g/dl (6.3-8.2)
== END ==
PROVIDERS: PCP Nurse Practitioner Family; Visit Provider Nurse Practitioner Family
DX: R11.2 Nausea with vomiting, unspecified (principal); E11.9 Type 2 diabetes mellitus without complications; Z79.84 Long term (current) use of oral hypoglycemic drugs
CPT/HCPCS: 36415; 80053; 82150; 83036; 83690; 85025

== ENCOUNTER → 2022-06-25 08:45 | Outpatient (CLI) | payer MEDICARE, SELFPAY ==
--- NOTE | 2022-06-25 08:51 | US_ITS ---
FINAL REPORT CLINICAL HISTORY: Abdominal pain, vomiting, diarrhea COMPARISON: None FINDINGS: Sonographic images of the right upper quadrant were obtained. The pancreas is partially obscured.The liver has an unremarkable appearance.The gallbladder appears normal without evidence of gallstones.There is no evidence of biliary ductal dilatation.The common duct measures 4mm. Limited images of the right kidney are unremarkable. IMPRESSION: Unremarkable right upper quadrant ultrasound. Reviewed, Interpreted and Dictated by Akhil Benitez MD Transcribed by Doris Lewis Authenticated and [facility]
== END ==
PROVIDERS: PCP Nurse Practitioner Family; Visit Provider Nurse Practitioner Family
DX: R10.9 Unspecified abdominal pain (principal)
CPT/HCPCS: 76705

== ENCOUNTER 2022-06-27 19:04 | Inpatient (IN) | payer MEDICARE, SELFPAY ==
[2022-06-27 19:05] VITALS: BP 138/73; PULSE 120; RESP 19; TEMP 36.6; O2SAT 96; BMI 26.5
--- NOTE | 2022-06-27 19:21 | XR_ITS ---
PROCEDURE INFORMATION: Exam: XR Chest Exam date and time: 06/27/2022 8:16 PM Age: 76 years old Clinical indication: Dyspnea TECHNIQUE: Imaging protocol: Radiologic exam of the chest. Views: 1 view. COMPARISON: CR XR CHEST 2V 07/06/2019 10:22 FINDINGS: Lungs: Unremarkable. No consolidation. Pleural spaces: Unremarkable. No pleural effusion. No pneumothorax. Heart/Mediastinum: Unremarkable. No cardiomegaly. Vasculature: Vascular calcifications. Bones/joints: Unremarkable. Soft tissues: Left breast biopsy clips. IMPRESSION: No acute findings.
--- NOTE | 2022-06-27 19:21 | CT_ITS ---
PROCEDURE INFORMATION: Exam: CT Abdomen And Pelvis Without Contrast Exam date and time: 06/27/2022 8:07 PM Age: 76 years old Clinical indication: Nausea and vomiting; Additional info: Abd pain, n/v x2 weeks TECHNIQUE: Imaging protocol: Computed tomography of the abdomen and pelvis without contrast. Radiation optimization: All CT scans at this facility use at least one of these dose optimization techniques: automated exposure control; mA and/or kV adjustment per patient size (includes targeted exams where dose is matched to clinical indication); or iterative reconstruction. REPORTING DATA: Count of CT and Cardiac NM exams in prior 12 months: This patient has received 0 known CTs and 0 known cardiac nuclear medicine studies in the 12 months prior to the current study. COMPARISON: CT ABDOMEN PELVIS W CON 28/05/2020 16:19 FINDINGS: Coronary arteries: Coronary artery calcifications. Liver: Normal. No mass. Gallbladder and bile ducts: Normal. No calcified stones. No ductal dilation. Pancreas: Moderate pancreatic atrophy. Spleen: Normal. No splenomegaly. Adrenal glands: Normal. No mass. Kidneys and ureters: Normal. No hydronephrosis. Stomach and bowel: Bowel wall thickening and surrounding edema of duodenum through the proximal jejunum. Appendix: No evidence of appendicitis. Intraperitoneal space: Unremarkable. No free air. No significant fluid collection. Vasculature: The arteries demonstrate moderate atherosclerotic disease. Lymph nodes: Unremarkable. No enlarged lymph nodes. Urinary bladder: Unremarkable as visualized. Reproductive: Status post hysterectomy. Bones/joints: Unremarkable. No acute fracture. Soft tissues: Tiny fat containing umbilical hernia. Left breast biopsy clips. Other findings: Stigmata of old granulomatous disease. IMPRESSION: Bowel wall thickening and surrounding edema of duodenum through the proximal jejunum. Enteritis would be most likely.
--- NOTE | 2022-06-27 19:21 | HMH.EDGENADL ---
Discharge Plan Prescriptions Prescriptions: No Action vitamin B complex [B Complex-Vitamin B12] Tablet 1 tab PO DAILY cholecalciferol (vitamin D3) 1,000 unit capsule 1,000 unit PO DAILY citalopram 10 mg tablet 10 mg PO DAILY Jardiance 10 mg tablet 10 mg PO DAILY mupirocin 2 % ointment 1 dose TP NEEDED PRN (Reason: Rash) sitagliptin phosphate 100 mg tablet 100 mg PO DAILY Neupro 8 mg/24 hour patch 24 hour 8 mg transdermal DAILY 30 Days Qty: 30 5RF Rx Instructions: rcvd via patient assistance atorvastatin 40 MG tablet 40 mg PO DAILY alprazolam 0.5 MG tablet extended release 24 hr 0.5 mg PO NEEDED PRN (Reason: Anxiety) atenolol 100 mg tablet 100 mg PO DAILY aspirin 81 MG tablet,delayed release (DR/EC) 81 mg PO DAILY buspirone 10 mg tablet 10 mg PO DAILY omeprazole 20 mg capsule,delayed release(DR/EC) 20 mg PO DAILY benzonatate 100 MG capsule 100 mg PO TIDP PRN (Reason: Cough) Qty: 30 0RF guaifenesin 600 MG tablet extended release 12hr 1 - 2 tab PO BIDP PRN (Reason: Congestion) Qty: 30 0RF Referrals Follow up/Referrals: Holly Cortés APRN [Primary Care Provider] - See instructions Discharge ED Provider: Santosh Partida General Adult HPI General Stated complaint: vomiting, diarrhea Time Seen by Provider: 06/27/22 19:21 History of Present Illness HPI narrative: Patient is a 76-year-old female who presents today with epigastric abdominal discomfort nausea and vomiting x2 weeks. She states that she had diarrhea the first few days that this was going on but has had essentially no bowel movements in the last 12 days. States that she was followed up outpatient had an right upper quadrant ultrasound of her gallbladder which was normal. She has been unable to keep any significant mount of food or fluid down in the past 2 weeks is profoundly weak also fell as a result of this weakness injuring her right hand a few days ago. She denies any severe pain in her abdomen. Denies any headaches or neurologic symptoms no focal weakness sensory loss change in coordination or vision. She states she is having some difficulty with swallowing some epigastric discomfort. No history of any ulcers or esophageal abnormalities in the past. No history of cancer. She and her daughter who is at the bedside state that she is angry that no one is minimal to find out what exactly is going on with her the past few weeks. She still has good urine output from history. Related Data Home Medications Medication Instructions Recorded Confirmed alprazolam 0.5 mg tablet,extended 0.5 mg PO NEEDED PRN Anxiety 05/18/17 04/10/22 release 24 hr atorvastatin 40 mg tablet 40 mg PO DAILY Cholesterol 05/18/17 04/10/22 aspirin 81 mg tablet,delayed 81 mg PO DAILY CAD 09/01/17 04/10/22 release cholecalciferol (vitamin D3) 25 1,000 unit PO DAILY Supplement 02/01/19 04/10/22 mcg (1,000 unit) capsule citalopram 10 mg tablet 10 mg PO DAILY Depression 02/01/19 04/10/22 vitamin B complex (B 1 tab PO DAILY Supplement 02/01/19 04/10/22 Complex-Vitamin B12 tablet) sitagliptin phosphate 100 mg tablet 100 mg PO DAILY Diabetes 05/23/19 04/10/22 atenolol 100 mg tablet 100 mg PO DAILY Hypertension 10/17/19 04/10/22 empagliflozin 10 mg tablet 10 mg PO DAILY Diabetes 10/16/21 04/10/22 (Jardiance) mupirocin 2 % topical ointment 1 dose topical NEEDED PRN Rash 10/16/21 04/10/22 buspirone 10 mg tablet 10 mg PO DAILY Depression 03/05/22 04/10/22 omeprazole 20 mg capsule,delayed 20 mg PO DAILY GERD 03/05/22 04/10/22 release Previous Rx's Medication Instructions Recorded benzonatate 100 mg capsule 100 mg PO TIDP PRN Cough #30 caps 10/29/21 guaifenesin 600 mg tablet, 1 - 2 tab PO BIDP PRN Congestion 10/29/21 extended release 12 hr #30 tabs rotigotine 8 mg/24 hour 8 mg transdermal DAILY 30 days #30 03/10/22 transdermal 24 hour patch (Neupro) ea Allerg
[2022-06-27 19:30] VITALS: BP 153/86; PULSE 113; O2SAT 92
--- NOTE | 2022-06-27 19:35 | ECG_ITS ---
APPROVED REPORT Exam: Resting ECG HR:109 bpm ECG Measurements Heart Rate 109 AXES TN 120 P 54 QRSd 86 QRS 48 QT 337 T -79 QTc [address] DEVIATION AND MODERATE T-WAVE ABNORMALITY, CONSIDER LATERAL ISCHEMIA [-0.1+ mV T-WAVE IN I/aVL/V5/V6] ST DEVIATION AND MODERATE T-WAVE ABNORMALITY, CONSIDER INFERIOR ISCHEMIA [-0.1+ mV T-WAVE IN II/aVF] ABNORMAL ECG UNCONFIRMED REPORT Electronically signed by : Regino Cartagena MD 06/28/2022 20:28:32
[2022-06-27 19:41] LABS: Basophils # 0.1 K/mm3 (0-0.2); Basophils % 0.4 % (0.1-2.0); Eosinophils # 0.1 K/mm3 (0.0-0.4); Eosinophils % 0.5 % (0.1-12.0); Hematocrit 45.1 % (37.0-47.0); Hemoglobin 14.7 g/dL (12.2-16.2); Lymphocytes # 1.1 K/mm3 (0.7-4.5); Lymphocytes % 8.6 % (10-50); Mean Corpuscular HGB Conc 32.5 g/dL (31.8-35.4); Mean Corpuscular Hemoglobin 30.5 pg (27.0-31.2); Mean Corpuscular Volume 93.7 fl (81-99); Mean Platelet Volume 8.3 fl (7.4-10.4); Monocytes # 0.6 K/mm3 (0.1-1.0); Neutrophils # 10.7 K/mm3 (1.8-7.8); Neutrophils % 85.5 % (37.0-80.0); Platelet Count 394 K/mm3 (142-424); Red Blood Count 4.81 M/mm3 (4.20-5.40); Red Cell Distribution Width 14.7 % (11.5-17.5); White Blood Count 12.5 K/mm3 (4.8-10.8)
[2022-06-27 19:44] LABS: MANUAL DIFFERENTIAL MANUAL DIFFERENTIAL (MANUAL DIFF)
[2022-06-27 19:54] LABS: Chloride 93 mmol/L (98-107)
[2022-06-27 19:55] LABS: Potassium 3.4 mmoL/L (3.5-5.1); Sodium 136 mmol/L (136-145)
[2022-06-27 19:57] LABS: Alanine Aminotransferase 23 U/L (12-78); Alkaline Phosphatase 131 U/L (38-126); Anion Gap 14.4 mEq/L (5-15); Aspartate Amino Transferase 25 U/L (14-36); Bilirubin,Total 0.9 mg/dl (0.2-1.3); Blood Urea Nitrogen 77 mg/dl (7-17); Carbon Dioxide 32 mmol/L (22.0-30.0); Creatinine Clearance Estimated 21 mL/min (50-200); Estimated Glomerular Filt Rate 21 ml/min (>60); GFR (African American) 25 ML/MIN (>60); Lymphocytes % 13 % (10-50); Monocytes % 1 % (2-9); Neutrophils % 86 % (42-76); Platelet Estimate Normal; RBC Morphology Normal; Total Cells Counted 100
[2022-06-27 19:58] LABS: Albumin Level 4.3 g/dl (3.5-5.0); Albumin/Globulin Ratio 1.3 (1.1-1.8); Calcium 9.1 mg/dl (8.4-10.2); Globulin 3.3 g/dL (1.3-3.2); Glucose 338 mg/dl (74-100); Lipase 191 U/L (23-300); Magnesium 2.8 mg/dl (1.6-2.3); Phosphorous 3.5 mg/dl (2.5-4.5); Total Protein,Serum 7.6 g/dl (6.3-8.2)
[2022-06-27 20:00] VITALS: BP 148/82; PULSE 100; O2SAT 98
--- NOTE | 2022-06-27 20:00 | PC.NURSE ---
Dr Partida notified of lab levels with creatinine 2.3 and GFR 21, he ordered non-contrast scan.
[2022-06-27 20:01] LABS: Lactic Acid 2.1 mmol/L (0.7-2.1)
--- NOTE | 2022-06-27 20:12 | PC.NURSE ---
pt back from CT scan
[2022-06-27 20:14] LABS: Acetone, Serum (Rapid) None Detected (None Detect)
[2022-06-27 20:18] LABS: Magnesium 2.8 mg/dl (1.6-2.3)
[2022-06-27 20:48] LABS: Microscopic, Urine URINE MICROSCOPIC (MICROSCOPIC)
--- NOTE | 2022-06-27 20:48 | HMH.EDGENADL ---
Discharge Plan Disposition Patient Disposition: Admitted As Inpatient Condition: Fair Chief Complaint: Nausea/Vomiting/Diarrhea Prescriptions Prescriptions: No Action vitamin B complex [B Complex-Vitamin B12] Tablet 1 tab PO DAILY cholecalciferol (vitamin D3) 1,000 unit capsule 1,000 unit PO DAILY citalopram 10 mg tablet 10 mg PO DAILY Jardiance 10 mg tablet 10 mg PO DAILY sitagliptin phosphate 100 mg tablet 100 mg PO DAILY atorvastatin 40 MG tablet 40 mg PO DAILY alprazolam 0.5 MG tablet extended release 24 hr 0.5 mg PO NEEDED PRN (Reason: Anxiety) atenolol 100 mg tablet 100 mg PO DAILY aspirin 81 MG tablet,delayed release (DR/EC) 81 mg PO DAILY buspirone 10 mg tablet 10 mg PO DAILY omeprazole 20 mg capsule,delayed release(DR/EC) 20 mg PO DAILY ondansetron HCl 4 mg tablet 4 mg PO Q8HP PRN (Reason: Nausea) Referrals Follow up/Referrals: Holly Cortés APRN [Primary Care Provider] - See instructions Clinical Impressions Clinical Impression: Acute dehydration, Nausea & vomiting, Gastroenteritis, Acute kidney injury Instructions Patient Instructions: DI for Diarrhea and Traveler's Diarrhea -- Adult, DI for Diarrhea and Traveler's Diarrhea -- Child, DI for Nausea -- Adult, DI for Nausea -- Child Discharge ED Provider: Steve Joe General Adult HPI General Chief complaint: Nausea/Vomiting/Diarrhea Stated complaint: vomiting, diarrhea Time Seen by Provider: 06/27/22 19:21 Mode of Arrival: Family Vehicle Source of Information: Patient and Medical Record Limitations: No Limitations Description of Symptoms (Recalled from ER Triage Doc. by RN): Pt c/o nausea, vomiting, and diarrhea for about 2 weeks. States she had a gallbladder u/s that was ok last week and her PCP just wanted her to continue taking antimetics (zofran) and intake clear liquids, however pt cotinues to not be able to tolerate liquids. Denies any severe abd pain, but does report cramping . Denies fever. She does report to be a non-insulin diabetic. Her FS have been about 190s. Related Data Home Medications Medication Instructions Recorded Confirmed alprazolam 0.5 mg tablet,extended 0.5 mg PO NEEDED PRN Anxiety 05/18/17 06/27/22 release 24 hr atorvastatin 40 mg tablet 40 mg PO DAILY Cholesterol 05/18/17 06/27/22 aspirin 81 mg tablet,delayed 81 mg PO DAILY CAD 09/01/17 06/27/22 release cholecalciferol (vitamin D3) 25 1,000 unit PO DAILY Supplement 02/01/19 06/27/22 mcg (1,000 unit) capsule citalopram 10 mg tablet 10 mg PO DAILY Depression 02/01/19 06/27/22 vitamin B complex (B 1 tab PO DAILY Supplement 02/01/19 06/27/22 Complex-Vitamin B12 tablet) sitagliptin phosphate 100 mg tablet 100 mg PO DAILY Diabetes 05/23/19 06/27/22 atenolol 100 mg tablet 100 mg PO DAILY Hypertension 10/17/19 06/27/22 empagliflozin 10 mg tablet 10 mg PO DAILY Diabetes 10/16/21 06/27/22 (Jardiance) buspirone 10 mg tablet 10 mg PO DAILY Depression 03/05/22 06/27/22 omeprazole 20 mg capsule,delayed 20 mg PO DAILY GERD 03/05/22 06/27/22 release ondansetron HCl 4 mg tablet 4 mg PO Q8HP PRN Nausea 06/27/22 06/27/22 Allergies Allergy/AdvReac Type Severity Reaction Status Date / Time No Known Allergies Allergy Verified 04/10/22 10:37 [facility] Disclaimer: The information contained in this section may have been updated after the patient was seen, as this information can be updated by other users. Social History Smoking Status: Never smoker second hand exposure: No alcohol intake: never substance use type: denies use current occupational status: retired Travel in the last 8 weeks: Inside the [place] household members: spouse housing: house current occupational exposures/hazards: No ROS Obtained: Yes All systems reviewed & no additional complaints except as documented Physical Exam General General appearance: alert and leth
--- NOTE | 2022-06-27 20:54 | PC.NURSE ---
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
[2022-06-27 20:55] LABS: Appearance,Urine CLEAR (Clear); Blood, Urine TRACE-I (Negative); Color,Urine YELLOW (Yellow); Glucose,Urine (UA) 3+ (Negative); Ketones,Urine Negative (Negative); Leukocyte Esterase,Urine Negative (Negative); Nitrate,Urine Negative (Negative); PH,Urine 5.5 (5.0-8.5); Protein,Urine Negative (Negative); Urobilinogen,Urine 0.2 EU/dl (0.2)
[2022-06-27 21:09] LABS: Bilirubin,Urine 1+ (Negative)
--- NOTE | 2022-06-27 21:19 | EXP.HP ---
History of Present Illness *Admission Date: 06/27/22 *Reason for visit:: Abdominal Pain, Nausea, Vomiting *History of present illness: Ms. Rod is a 76-year-old female with a past medical history of DM, CKD, Depression, Anxiety and Hyperlipidemia. She presents to [facility] with a 2 week history of abdominal pain associated with nausea, vomiting and initially started with diarrhea then proceeded to have no bowel movements. She denies known similar sick contacts, fevers. She reports that she saw her PCP and had a Gall Bladder US that was unremarkable. Due to the continued pain and inability to eat without nausea and vomiting she came into the ER for evaluation. In the ER the patient underwent a CT of the abdomen that was consistent with Enteritis. EKG showed a Sinus Tachycardia with HR of [address] segment elevation or depression. CMP showed a creatinine of 2.30, patient's most recent baseline creatinine is 1.50. In the ER the patient received NS fluid bolus x 1 and was placed on maintenance fluids at 150 ml/hr. Stool studies have been ordered, patient has been given Antiemetics, she will be placed on Zosyn to cover gram negative and anaerobic coverage since the patient has complaints of symptoms that have persisted x 2 weeks. The plan of care was discussed with the patient and her daughter at bedside. Both verbalized understanding and agreement with the plan of care. [facility] Disclaimer: The information contained in this section may have been updated after the patient was seen, as this information can be updated by other users. Medical History (Updated 06/27/22 @ 21:27 by Efren Reese DNP) Anxiety Depression Diabetes Hyperlipidemia Hypertension Social History Smoking Status: Never smoker second hand exposure: No alcohol intake: never substance use type: denies use current occupational status: retired Travel in the last 8 weeks: [place] the [place] household members: spouse housing: house current occupational exposures/hazards: No Review of Systems Review of Systems Review of systems:: pertinent systems reviewed and negative unless documented below Constitutional Constitutional: Reports anorexia Eyes Eyes: Reports system reviewed and no additional complaints, except as documented ENT Ears, Nose, Mouth, and Throat: Reports system reviewed and no additional complaints, except as documented *Cardiovascular Cardiovascular: Reports system reviewed and no additional complaints, except as documented *Respiratory Respiratory: Reports system reviewed and no additional complaints, except as documented *Gastrointestinal Gastrointestinal: Reports abdominal pain, Reports bloating, Reports change in bowel habits, Reports nausea and Reports vomiting *Genitourinary Genitourinary: Reports system reviewed and no additional complaints, except as documented *Musculoskeletal Musculoskeletal: Reports system reviewed and no additional complaints, except as documented Integumentary/Breasts Skin/Breast: Reports system reviewed and no additional complaints, except as documented *Neurologic Neurologic: Reports system reviewed and no additional complaints, except as documented Psychiatric Psychiatric: Reports system reviewed and no additional complaints, except as documented Endocrine Endocrine: Reports system reviewed and no additional complaints, except as documented Hematologic/Lymphatic Hematologic/Lymphatic: Reports system reviewed and no additional complaints, except as documented Allergic/Immunologic Allergic/Immunologic: Reports system reviewed and no additional complaints, except as documented Meds Home Medications and Allergies Home Medications Medication Instructions Recorded Confirmed Type alprazolam 0.5 mg tablet,extended 0.5 mg PO NEEDED PRN Anxiety 05/18/17 06/27/22 History release 24 hr atorvastatin 40 mg tablet 40
[2022-06-27 21:34] LABS: Coronavirus 19, PCR Not Detected (NotDetected); Influenza A, PCR Not Detected (NotDetected); Influenza B, PCR Not Detected (NotDetected)
--- NOTE | 2022-06-27 21:43 | PC.NURSE ---
Addendum entered by Adriana Seymour RN 06/27/22 21:45: Report given to Evelyn Baptiste RN Original Note: pt taken to 2nd floor via wheelchair
[2022-06-27 21:46] VITALS: BP 145/78; PULSE 85; RESP 18; TEMP 36.8; O2SAT 98; BMI 25.4
[2022-06-27 21:47] VITALS: BP 157/81; PULSE 110; RESP 18; TEMP 36.8; O2SAT 95
[2022-06-27 22:02] LABS: RBC,Urine Occasional #/hpf (0-3); Squamous Epithelial Cell,Urine Occasional #/hpf (0-5); WBC,Urine Occasional #/hpf (0-3)
[2022-06-27 23:10] LABS: Reflex Lactic Add Lactic Reflex
[2022-06-27 23:45] LABS: Lactic Acid Follow Up (RFLX 1) 2.9 mmol/L (0.7-2.1)
[2022-06-28 01:00] LABS: Reflex Lactic (2 hrs) Add Lactic Reflex
[2022-06-28 04:00] VITALS: BP 138/74; PULSE 90; RESP 16; TEMP 36.7; O2SAT 95; BMI 25.4
--- NOTE | 2022-06-28 04:23 | PC.NURSE ---
pt is A&OX4. ambulates to and from bathroom with assistance. c/o nausea and vomiting, medicated prn per mar with favorable results. no episodes of diarrhea since being admitted. no c/o pain this shift. call esquivel is in reach.
[2022-06-28 05:33] LABS: POC Glucose,Bedside 364 (70-110)
[2022-06-28 05:54] LABS: POC Glucose,Bedside 202 (70-110)
[2022-06-28 07:52] LABS: Basophils # 0.1 K/mm3 (0-0.2); Lymphocytes % 14.9 % (10-50); Mean Platelet Volume 8.2 fl (7.4-10.4); Monocytes # 0.6 K/mm3 (0.1-1.0)
--- NOTE | 2022-06-28 07:54 | HMH.ITSTN ---
spoke to nurse francy on floor advised US will not be done until Thursday. Robel is the nurse for the pt and she will let him know.
[2022-06-28 08:00] VITALS: BP 146/88; PULSE 108; RESP 18; TEMP 36.9; O2SAT 100
[2022-06-28 08:00] LABS: Basophils % 0.7 % (0.1-2.0); Eosinophils # 0.1 K/mm3 (0.0-0.4); Eosinophils % 0.9 % (0.1-12.0); Hematocrit 40.3 % (37.0-47.0); Hemoglobin 12.8 g/dL (12.2-16.2); Lymphocytes # 1.7 K/mm3 (0.7-4.5); Mean Corpuscular HGB Conc 31.8 g/dL (31.8-35.4); Mean Corpuscular Hemoglobin 30.2 pg (27.0-31.2); Mean Corpuscular Volume 95.1 fl (81-99); Monocytes % 5.3 % (1.7-9.3); Neutrophils # 8.9 K/mm3 (1.8-7.8); Neutrophils % 78.1 % (37.0-80.0); Platelet Count 327 K/mm3 (142-424); Red Blood Count 4.24 M/mm3 (4.20-5.40); Red Cell Distribution Width 14.7 % (11.5-17.5); White Blood Count 11.3 K/mm3 (4.8-10.8)
[2022-06-28 08:01] LABS: Blood Urea Nitrogen 58 mg/dl (7-17); Calcium 8.3 mg/dl (8.4-10.2); Carbon Dioxide 34 mmol/L (22.0-30.0); Chloride 98 mmol/L (98-107); Creatinine Clearance Estimated 29 mL/min (50-200); Estimated Glomerular Filt Rate 31 ml/min (>60); GFR (African American) 38 ML/MIN (>60); Glucose 185 mg/dl (74-100); Lactic Acid Follow up (RFLX 2) 1.8 mmol/L (0.7-2.1); Sodium 138 mmol/L (136-145)
--- NOTE | 2022-06-28 09:07 | EXP.ACUTE.PN ---
Subjective *Date: 06/28/22 *Time: 09:07 Interval history: Severe abdominal pain. Having emesis. Reports worsening early satiety and weight loss. Abdominal pain with any p.o. intake. Denies bloody emesis, melena, hematochezia Medical Exam Vital signs and Labs for Last 24 Hours: Vital Signs Temp Pulse Pulse Resp BP BP Pulse Ox 06/28/22 08:00 98.4 F 108 H 18 146/88 H 100 06/28/22 04:00 98.0 F 90 16 138/74 95 06/27/22 21:47 98.2 F 110 H 18 157/81 H 95 06/27/22 21:46 98.2 F 85 18 145/78 H 06/27/22 20:00 100 H 148/82 H 98 06/27/22 19:30 113 H 153/86 H 92 L 06/27/22 19:05 97.9 F 120 H 19 138/73 96 Intake and Output 06/27/22 06/28/22 06/28/22 23:59 07:59 15:59 Intake Total 1000 / 1000 120 / 120 Output Total 0 / 0 Balance 1000 / 1000 0 / 120 120 / 120 Intake: Intake, Oral Amount 120 / 120 Intake, Total IV Amount 1000 / 1000 Output: Output, Urine Amount 0 / 0 Other: Weight 62.652 kg 62.652 kg Patient Weight 06/28/22 23:59 Weight 62.652 kg Laboratory Results - last 24 hr 06/27/22 19:25: WBC 12.5 H, RBC 4.81, Hgb 14.7, Hct 45.1, MCV 93.7, MCH 30.5, MCHC 32.5, RDW 14.7, Plt Count 394, MPV 8.3, Neut % (Auto) 85.5 H, Lymph % (Auto) 8.6 L, [place] % (Auto) 5.0, Eos % (Auto) 0.5, Baso % (Auto) 0.4, Neut # (Auto) 10.7 H, Lymph # (Auto) 1.1, [place] # (Auto) 0.6, Eos # (Auto) 0.1, Baso # (Auto) 0.1, Total Counted 100, Neutrophils % (Manual) 86 H, Lymphocytes % (Manual) 13, Monocytes % (Manual) 1 L, Platelet Estimate Normal, RBC Morphology Normal 03/24/23 19:25: Sodium 136, Potassium 3.4 L, Chloride 93 L, Carbon Dioxide 32 H, Anion Gap 14.4, BUN 77 H, Creatinine 2.30 H, Estimated Creat Clear 21, Estimated GFR 21 L, Est GFR ( Amer) 25 L, Glucose 338 H, Calcium 9.1, Phosphorus 3.5, Magnesium 2.8 H, Total Bilirubin 0.9, AST 25, ALT 23, Alkaline Phosphatase 131 H, Total Protein 7.6, Albumin 4.3, Globulin 3.3 H, Albumin/Globulin Ratio 1.3, Lipase 191 06/27/22 19:25: Lactate 2.1 06/27/22 19:25: Magnesium 2.8 H, Acetone Level None detected 06/27/22 20:43: Urine Color Yellow, Urine Appearance Clear, Urine pH 5.5, Ur Specific [place] 1.020, Urine Protein Negative, Urine Glucose (UA) 3+, Urine Ketones Negative, Urine Blood Trace-i, Urine Nitrate Negative, Urine Bilirubin 1+ A, Urine Urobilinogen 0.2, Ur Leukocyte Esterase Negative, Urine RBC Occasional, Urine WBC Occasional, Ur Squamous Epith Cells Occasional, Urine Bacteria None 06/27/22 20:45: SARS-CoV-2 (PCR) Not detected, Influenza A Untype (PCR) Not detected, Influenza Type B (PCR) Not detected 06/27/22 22:13: POC Glucose 364 H* 06/27/22 23:20: Lactate 2.9 H 06/28/22 05:44: POC Glucose 202 H 06/28/22 07:40: Sodium 138, Potassium 3.0 L, Chloride 98, Carbon Dioxide 34 H, Anion Gap 9.0, BUN 58 H, Creatinine 1.60 H D, Estimated Creat Clear 29, Estimated GFR 31 L, Est GFR ( Amer) 38 L D, Glucose 185 H D, Calcium 8.3 L 06/28/22 07:40: WBC 11.3 H, RBC 4.24, Hgb 12.8 D, Hct 40.3, MCV 95.1, MCH 30.2, MCHC 31.8, RDW 14.7, Plt Count 327, MPV 8.2, Neut % (Auto) 78.1, Lymph % (Auto) 14.9, Stan[place] % (Auto) 5.3, Eos % (Auto) 0.9, Baso % (Auto) 0.7, Neut # (Auto) 8.9 H, Lymph # (Auto) 1.7, Stanly # (Auto) 0.6, Eos # (Auto) 0.1, Baso # (Auto) 0.1 06/28/22 07:40: Lactate 1.8 I & O for Labs for Last 24 Hours: Intake & Output 06/25/22 06/26/22 06/27/22 06/28/22 23:59 23:59 23:59 23:59 Intake Total 1000 / 1000 120 / 120 Output Total 0 / 0 Balance 1000 / 1000 120 / 120 Weight 62.652 kg 62.652 kg Constitutional: Present mild distress, moderate distress and chronically ill appearing Head: Present atraumatic GI: Present soft, tenderness and hypoactive bowel sounds; Absent normal bowel sounds or bruit Rectal (female): Present deferred (female): Present deferred Extremities: Present normal inspection Skin: Present intact Assessment and Plan *Assessment and plan (1) Enteritis: Status: Acute Category: Med
--- NOTE | 2022-06-28 09:26 | PC.NURSE ---
NOTIFIED OF CONSULT ON PT
--- NOTE | 2022-06-28 09:53 | PC.NURSE ---
PT STATES THAT HER NAUSEA HAS IMPROVED BUT SHE DOES NOT FEEL THAT SHE CAN TAKE HER MEDICATIONS AT THIS TIME. WILL TRY AGAIN LATER
--- NOTE | 2022-06-28 10:21 | EXP.SURG.CON ---
History of Present Illness *Admission Date: 06/27/22 *Reason for visit:: Epigastric pain. Possible ischemic enteritis *History of present illness: The following is obtained from admission history and physical: Ms. Rod is a 76-year-old female with a past medical history of DM, CKD, Depression, Anxiety and Hyperlipidemia. She presents to [facility] with a 2 week history of abdominal pain associated with nausea, vomiting and initially started with diarrhea then proceeded to have no bowel movements. She denies known similar sick contacts, fevers. She reports that she saw her PCP and had a Gall Bladder US that was unremarkable. Due to the continued pain and inability to eat without nausea and vomiting she came into the ER for evaluation. In the ER the patient underwent a CT of the abdomen that was consistent with Enteritis. EKG showed a Sinus Tachycardia with HR of [address] segment elevation or depression. CMP showed a creatinine of 2.30, patient's most recent baseline creatinine is 1.50. In the ER the patient received NS fluid bolus x 1 and was placed on maintenance fluids at 150 ml/hr. Stool studies have been ordered, patient has been given Antiemetics, she will be placed on Zosyn to cover gram negative and anaerobic coverage since the patient has complaints of symptoms that have persisted x 2 weeks. The plan of care was discussed with the patient and her daughter at bedside. Both verbalized understanding and agreement with the plan of care. Of note, the patient has previously undergone upper endoscopy by Dr. Alban Crespo July 2017 for symptoms of dyspepsia epigastric pain and early satiety. She had findings of gastric enteropathy and gastritis. Pathology revealed acute and chronic peptic duodenitis, mild chronic gastritis, reflux esophagitis. She has had several colonoscopies in the past including in [address] Crespo which was normal, [address] Diana which was normal, [address] Crespo which revealed a polyp and pericolonic adhesions of the sigmoid colon . He reportedly had performed a follow-up colonoscopy last year in [place] according to the patient. [facility] Disclaimer: The information contained in this section may have been updated after the patient was seen, as this information can be updated by other users. Medical History (Updated 06/27/22 @ 22:46 by Chandni Baptiste RN) Anxiety Breast cancer Depression Diabetes Hyperlipidemia Hypertension Surgical History (Updated 06/27/22 @ 22:46 by Chandni Baptiste RN) History of lumpectomy of left breast Social History (Updated 06/27/22 @ 22:44 by Chandni Baptiste RN) Smoking Status: Never smoker second hand exposure: No alcohol intake: never substance use type: denies use current occupational status: retired Travel in the last 8 weeks: Inside the [place] household members: spouse housing: house current occupational exposures/hazards: No Review of Systems *Neurologic Neurologic: Reports system reviewed and no additional complaints, except as documented Meds Home Medications and Allergies Home Medications Medication Instructions Recorded Confirmed Type atorvastatin 40 mg tablet 40 mg PO DAILY Cholesterol 05/18/17 06/27/22 History aspirin 81 mg tablet,delayed 81 mg PO DAILY CAD 09/01/17 06/27/22 History release cholecalciferol (vitamin D3) 25 1,000 unit PO DAILY Supplement 02/01/19 06/27/22 History mcg (1,000 unit) capsule citalopram 10 mg tablet 10 mg PO DAILY Depression 02/01/19 06/27/22 History vitamin B complex (B 1 tab PO DAILY Supplement 02/01/19 06/27/22 History Complex-Vitamin B12 tablet) sitagliptin phosphate 100 mg tablet 100 mg PO DAILY Diabetes 05/23/19 06/27/22 History atenolol 100 mg tablet 100 mg PO DAILY
[2022-06-28 10:32] LABS: Creatinine,Urine Random 82 mg/dL (Not Estab.)
[2022-06-28 15:53] VITALS: BP 101/69; PULSE 84; RESP 18; TEMP 36.8; O2SAT 95
[2022-06-28 16:08] LABS: POC Glucose,Bedside 202 (70-110)
[2022-06-28 16:08] LABS: POC Glucose,Bedside 217 (70-110)
--- NOTE | 2022-06-28 17:55 | PC.NURSE ---
NO ACUTE CHANGES THIS SHIFT. C/O PAIN EARLY THIS MORNING, SHE WAS MEDICATED WITH MORPHINE AND ZOFRAN THIS MORNING WITH GOOD EFFECTIVENESS NOTED. TOLERATING DIET WELL.
[2022-06-28 20:00] VITALS: BP 114/65; PULSE 75; RESP 18; TEMP 36.6; O2SAT 98
[2022-06-28 20:23] LABS: POC Glucose,Bedside 109 (70-110)
[2022-06-29 02:59] LABS: Adenovirus F 40/41, stool Not Detected (NotDetected); Astrovirus Not Detected (NotDetected); Campylobacter Not Detected (NotDetected); Clostridium Difficile A/B, PCR Not Detected (NotDetected); Cryptosporidium Not Detected (NotDetected); Cyclospora Cayetanesis Not Detected (NotDetected); Entamoeba histolytica Not Detected (NotDetected); Enteroaggregative E coli Not Detected (NotDetected); Enteropathogenic E coli Not Detected (NotDetected); Enterotoxigenic E coli Not Detected (NotDetected); Giardia lamblia Not Detected (NotDetected); Norovirus Not Detected (NotDetected); Plesimonas Shigalloides, PCR Not Detected (NotDetected); Rotavirus A Not Detected (NotDetected); Salmonella, PCR Not Detected (NotDetected); Shiga-like toxin E coli Not Detected (NotDetected); Shigella Enterovasive E coli Not Detected (NotDetected); Vibrio Cholerae Not Detected (NotDetected); Vibrio, PCR Not Detected (NotDetected); Yersinia Entercolitica, PCR Not Detected (NotDetected)
--- NOTE | 2022-06-29 03:00 | PC.NURSE ---
Made Jenniffer PEARSON aware of patients postive stool occult blood.
[2022-06-29 03:16] LABS: Occult Blood,Stool Positive (Negative)
[2022-06-29 03:33] VITALS: BP 121/70; PULSE 72; RESP 12; TEMP 37; O2SAT 96
[2022-06-29 04:00] VITALS: BMI 25.2
--- NOTE | 2022-06-29 05:51 | PC.NURSE ---
pt a&ox4. room air. receiving iv abx. patient had large black, tarry bm that came back postivie for occult blood. patients vss.
[2022-06-29 06:21] LABS: POC Glucose,Bedside 155 (70-110)
[2022-06-29 07:53] LABS: Sapovirus Detected (NotDetected)
[2022-06-29 08:00] VITALS: BP 112/64; PULSE 74; RESP 18; TEMP 36.6; O2SAT 100
[2022-06-29 08:14] LABS: Sodium, Urine 42 mmol/L (Not Estab.)
--- NOTE | 2022-06-29 08:44 | EXP.ACUTE.PN ---
Subjective *Date: 06/29/22 *Time: 08:44 Interval history: Episode of melena overnight. Having diarrhea. Abdominal pain overall feels slightly better. Wants to advance diet. Medical Exam Vital signs and Labs for Last 24 Hours: Vital Signs Temp Pulse Resp BP Pulse Ox 06/29/22 08:00 97.8 F 74 18 112/64 100 06/29/22 03:33 98.6 F 72 12 121/70 96 06/28/22 20:00 97.9 F 75 18 114/65 98 06/28/22 15:53 98.2 F 84 18 101/69 L 95 Intake and Output 06/28/22 06/29/22 06/29/22 23:59 07:59 15:59 Intake Total 480 / 1180 100 / 340 240 / 340 Output Total 500 / 900 300 / 300 0 / 300 Balance -20 / 280 -200 / 40 240 / 40 Intake: Intake, Oral Amount 480 / 1180 100 / 340 240 / 340 Output: Output, Urine Amount 500 / 900 300 / 300 0 / 300 Other: Number of Voids 3 Number of Unmeasured Voids 0 1 Number of Bowel Movements 1 Weight 62.198 kg Patient Weight 06/29/22 23:59 Weight 62.198 kg Laboratory Results - last 24 hr 06/28/22 09:56: Urine Sodium 42 06/28/22 09:56: Urine Creatinine 82 06/28/22 11:02: POC Glucose 202 H 06/28/22 15:57: POC Glucose 217 H 06/28/22 20:13: POC Glucose 109 06/29/22 02:49: Stool Occult Blood Positive A 06/29/22 02:57: Stl Aeromonas (PCR) Not detected, Stl C. cayetanensis PCR Not detected, Stool Rotavirus (PCR) Not detected, Stl Adenov F 40/41 PCR Not detected, Stool Astrovirus (PCR) Not detected, Stool Campylobacter PCR Not detected, Stl C.difficile Tox PCR Not detected, Stool Cryptosporidium PCR Not detected, Stl E.coli Shiga Tox PCR Not detected, Stool E coli O157 PCR Not detected, Stl Enterotoxigenic E PCR Not detected, Stool EPEC (PCR) Not detected, Stool EAEC (PCR) Not detected, Stl E. histolytica PCR Not detected, Stool Giardia Lamblia PCR Not detected, Stool Salmonella PCR Not detected, Stool Sapovirus (PCR) Detected A, Stl P. shigelloides PCR Not detected, Stl Shigella/EIEC PCR Not detected, St Y.enterocolitica PCR Not detected, Stool Vibrio (PCR) Not detected, Stl Vibrio cholerae PCR Not detected, Stl Norovirus GI/GII PCR Not detected 06/29/22 06:09: POC Glucose 155 H I & O for Labs for Last 24 Hours: Intake & Output 06/26/22 06/27/22 06/28/22 06/29/22 23:59 23:59 23:59 23:59 Intake Total 1000 / 1000 1080 / 1180 340 / 340 Output Total 900 / 900 300 / 300 Balance 1000 / 1000 180 / 280 40 / 40 Weight 62.652 kg 62.652 kg 62.198 kg Constitutional: Present mild distress, moderate distress and chronically ill appearing Head: Present atraumatic GI: Present soft, tenderness and hypoactive bowel sounds; Absent normal bowel sounds or bruit Rectal (female): Present deferred (female): Present deferred Extremities: Present normal inspection Skin: Present intact Assessment and Plan *Assessment and plan (1) Enteritis: Status: Acute Category: Medical Code(s): K52.9 - Noninfective gastroenteritis and colitis, unspecified Plan 76-year-old female with past medical history of DM, HTN, Hyperlipidemia presents with a two week history of afebrile abdominal pain associated with with p.o. intake.? Causing early satiety, weight loss nausea, vomiting.? Sapovirus positive on stool, occult blood positive. CT concerning for enteritis, however there is significant calcified plaque in the ostium of the celiac trunk and mesenteric arteries.? Given her symptoms I am concerned for potential ischemic gastritis / enteritis. Acute kidney injury on admission has improved, we can consider CTA for evaluation of stenosis. General surgery consulted for potential EGD. If significant stenosis is found will likely need revascularization. ischemic enteritis / gastritis -Temporal profile of symptoms and radiographic findings suggestive of ischemic disease -Repeat lactate -Aggressive fluid resuscitation -Cardiology consulted for peripheral vascular disease -General surgery consulted, may perform EGD -Supportive management: Opioids, antiemetics -Placed on ant
[2022-06-29 09:14] LABS: Alanine Aminotransferase 24 U/L (12-78); Albumin Level 3.3 g/dl (3.5-5.0); Albumin/Globulin Ratio 1.2 (1.1-1.8); Alkaline Phosphatase 72 U/L (38-126); Anion Gap 7.5 mEq/L (5-15); Aspartate Amino Transferase 27 U/L (14-36); Bilirubin,Total 0.7 mg/dl (0.2-1.3); Blood Urea Nitrogen 48 mg/dl (7-17); Calcium 8.1 mg/dl (8.4-10.2); Carbon Dioxide 33 mmol/L (22.0-30.0); Chloride 101 mmol/L (98-107); Creatinine Clearance Estimated 31 mL/min (50-200); Estimated Glomerular Filt Rate 34 ml/min (>60); GFR (African American) 41 ML/MIN (>60); Globulin 2.7 g/dL (1.3-3.2); Glucose 220 mg/dl (74-100); Potassium 3.5 mmoL/L (3.5-5.1); Sodium 138 mmol/L (136-145)
--- NOTE | 2022-06-29 10:15 | HMH.ITSTN ---
I called nurse dickson advised GFR is only 34. low for contrast, he was going to contact Gustavo and see if he wants scan without or hold. I advised ordered routine.
--- NOTE | 2022-06-29 10:20 | EXP.SURG.PN ---
Subjective Narrative: Patient has had some nausea with her morning medications. She had reportedly melanic stool. She describes a black and sticky stool. Stool for Hemoccult is positive. Stool studies revealed positivity for Sapovirus. Her BUN and creatinine is 48 and 1.5. Exam Data for Last 24 hours Vital signs and Labs for Last 24 Hours: Temp Pulse Resp BP Pulse Ox 97.8 F 74 18 112/64 100 06/29/22 08:00 06/29/22 08:00 06/29/22 08:00 06/29/22 08:00 06/29/22 08:00 Laboratory Results - last 24 hr 06/28/22 09:56: Urine Sodium 42 06/28/22 09:56: Urine Creatinine 82 06/28/22 11:02: POC Glucose 202 H 06/28/22 15:57: POC Glucose 217 H 06/28/22 20:13: POC Glucose 109 06/29/22 02:49: Stool Occult Blood Positive A 06/29/22 02:57: Stl Aeromonas (PCR) Not detected, Stl C. cayetanensis PCR Not detected, Stool Rotavirus (PCR) Not detected, Stl Adenov F 40/41 PCR Not detected, Stool Astrovirus (PCR) Not detected, Stool Campylobacter PCR Not detected, Stl C.difficile Tox PCR Not detected, Stool Cryptosporidium PCR Not detected, Stl E.coli Shiga Tox PCR Not detected, Stool E coli O157 PCR Not detected, Stl Enterotoxigenic E PCR Not detected, Stool EPEC (PCR) Not detected, Stool EAEC (PCR) Not detected, Stl E. histolytica PCR Not detected, Stool Giardia Lamblia PCR Not detected, Stool Salmonella PCR Not detected, Stool Sapovirus (PCR) Detected A, Stl P. shigelloides PCR Not detected, Stl Shigella/EIEC PCR Not detected, St Y.enterocolitica PCR Not detected, Stool Vibrio (PCR) Not detected, Stl Vibrio cholerae PCR Not detected, Stl Norovirus GI/GII PCR Not detected 06/29/22 06:09: POC Glucose 155 H 06/29/22 09:00: Sodium 138, Potassium 3.5, Chloride 101, Carbon Dioxide 33 H, Anion Gap 7.5, BUN 48 H, Creatinine 1.50 H, Estimated Creat Clear 31, Estimated GFR 34 L, Est GFR ( Amer) 41 L, Glucose 220 H, Calcium 8.1 L, Total Bilirubin 0.7, AST 27, ALT 24, Alkaline Phosphatase 72, Total Protein 6.0 L, Albumin 3.3 L, Globulin 2.7, Albumin/Globulin Ratio 1.2 I & O for Last 24 hours: Intake & Output 06/26/22 06/27/22 06/28/22 06/29/22 11:59 11:59 11:59 11:59 Intake Total 1120 / 1120 1300 / 1300 Output Total 300 / 300 900 / 900 Balance 820 / 820 400 / 400 Weight 138 lb 1.984 oz 137 lb 1.984 oz *Routine Abdominal Exam Abdominal: Present soft Progress Note: A&P Assessment and plan (1) Enteritis: Status: Acute Assessment and Plan Assessment and Plan for All Diagnoses:: Patient to undergo CT angio. Tentatively plan for upper endoscopy tomorrow. If patient desires may have full liquids after CT scan with n.p.o. after midnight.
--- NOTE | 2022-06-29 10:31 | PC.NURSE ---
during morning medication administration pt began vomiting, she was assisted to the restroom. she was not able to tolerate any of her morning medications. prn zofran was administered for n/v. 0.5 mg xanax was identified with paulina from pharmacy and wasted with Nelson Kim RN. dr qasim lyn was made aware of event.
--- NOTE | 2022-06-29 12:18 | HMH.ITSTN ---
called for update from nurse Robel, he said riki was advised of low GFR and advised Robel to give fluids-- if GFR improves with new labs Robel to call for CTA
[2022-06-29 12:20] LABS: POC Glucose,Bedside 206 (70-110)
--- NOTE | 2022-06-29 12:20 | PC.NURSE ---
radiology called and said they are unable to perform ct with contrast r/t pt gfr dr lyn made aware
[2022-06-29 16:00] VITALS: BP 116/72; PULSE 75; RESP 18; TEMP 36.7; O2SAT 99
[2022-06-29 16:36] VITALS: BMI 25.2
--- NOTE | 2022-06-29 17:57 | HMH.ITSTN ---
called for update from Robel de la torre's nurse. I ask if Dr Chen wanted new labs drawn after she got fluids or if he wanted us to proceed with angio CT. He said he didn't say for sure. I advised I passed off info to nkechi Leslie if he decides to proceed with angio. Robel is to call the radiology department and advise when he speaks to the
[2022-06-29 18:23] LABS: POC Glucose,Bedside 179 (70-110)
[2022-06-29 19:48] VITALS: BP 122/77; PULSE 69; RESP 18; O2SAT 98
[2022-06-29 20:27] LABS: POC Glucose,Bedside 179 (70-110)
--- NOTE | 2022-06-29 23:28 | PC.NURSE ---
Courtesy Round Patient awake with visitor at bedside. Patient voiced no needs at this time. Trash and linens emptied . Patient refused water pitcher to be refilled.
[2022-06-30] VITALS (15 sets, daily range): BP systolic 101–165; BP diastolic 54–93; PULSE 66–82; RESP 16–20; TEMP 36.2–36.8; O2SAT 94–98; BMI 25.8
[2022-06-30 04:57] LABS: POC Glucose,Bedside 146 (70-110)
--- NOTE | 2022-06-30 06:18 | EXP.SURG.PN ---
Subjective Narrative: Still with nausea. Pain somewhat improved. Exam Data for Last 24 hours Vital signs and Labs for Last 24 Hours: Temp Pulse Resp BP Pulse Ox 98.1 F 82 16 165/65 H 95 06/30/22 04:00 06/30/22 04:00 06/30/22 04:00 06/30/22 04:00 06/30/22 04:00 Laboratory Results - last 24 hr 06/28/22 09:56: Urine Sodium 42 06/29/22 02:57: Stl Aeromonas (PCR) Not detected, Stl C. cayetanensis PCR Not detected, Stool Rotavirus (PCR) Not detected, Stl Adenov F 40/41 PCR Not detected, Stool Astrovirus (PCR) Not detected, Stool Campylobacter PCR Not detected, Stl C.difficile Tox PCR Not detected, Stool Cryptosporidium PCR Not detected, Stl E.coli Shiga Tox PCR Not detected, Stool E coli O157 PCR Not detected, Stl Enterotoxigenic E PCR Not detected, Stool EPEC (PCR) Not detected, Stool EAEC (PCR) Not detected, Stl E. histolytica PCR Not detected, Stool Giardia Lamblia PCR Not detected, Stool Salmonella PCR Not detected, Stool Sapovirus (PCR) Detected A, Stl P. shigelloides PCR Not detected, Stl Shigella/EIEC PCR Not detected, St Y.enterocolitica PCR Not detected, Stool Vibrio (PCR) Not detected, Stl Vibrio cholerae PCR Not detected, Stl Norovirus GI/GII PCR Not detected 06/29/22 06:09: POC Glucose 155 H 06/29/22 09:00: Sodium 138, Potassium 3.5, Chloride 101, Carbon Dioxide 33 H, Anion Gap 7.5, BUN 48 H, Creatinine 1.50 H, Estimated Creat Clear 31, Estimated GFR 34 L, Est GFR ( Amer) 41 L, Glucose 220 H, Calcium 8.1 L, Total Bilirubin 0.7, AST 27, ALT 24, Alkaline Phosphatase 72, Total Protein 6.0 L, Albumin 3.3 L, Globulin 2.7, Albumin/Globulin Ratio 1.2 06/29/22 11:56: POC Glucose 206 H 06/29/22 16:22: POC Glucose 179 H 06/29/22 20:16: POC Glucose 179 H 06/30/22 04:48: POC Glucose 146 H I & O for Last 24 hours: Intake & Output 06/27/22 06/28/22 06/29/22 06/30/22 11:59 11:59 11:59 11:59 Intake Total 1120 / 1120 1300 / 1300 Output Total 300 / 300 900 / 900 0 / 0 Balance 820 / 820 400 / 400 0 / 0 Weight 138 lb 1.984 oz 137 lb 1.984 oz 140 lb 4.984 oz Progress Note: A&P Assessment and plan (1) Enteritis: Status: Acute Assessment and Plan Assessment and Plan for All Diagnoses:: EGD today.
--- NOTE | 2022-06-30 06:55 | US_ITS ---
FINAL REPORT TECHNIQUE: Multiple sonographic images of the kidneys were obtained in the longitudinal and transverse planes. CLINICAL HISTORY: Acute on CKD FINDINGS: The right kidney measures 9.3 cm in [id number] length. There is no hydronephrosis, mass or stone. Cortical echogenicity and cortical thickness are within normal limits. The left kidney measures 9.2 cm in [id number] length. There is no hydronephrosis, mass or stone. Cortical echogenicity and cortical thickness are within normal limits. IMPRESSION: Morphologically normal kidneys bilaterally. Reviewed, Interpreted and Dictated by Julianna Quevedo MD Transcribed by Yael Raymond Authenticated and [facility]
[2022-06-30 07:29] LABS: Basophils % 0.2 % (0.1-2.0); Hematocrit 38.3 % (37.0-47.0); Lymphocytes # 1.5 K/mm3 (0.7-4.5); Lymphocytes % 12.2 % (10-50); Mean Corpuscular HGB Conc 31.4 g/dL (31.8-35.4); Mean Corpuscular Hemoglobin 30.3 pg (27.0-31.2); Mean Corpuscular Volume 96.6 fl (81-99); Mean Platelet Volume 8.1 fl (7.4-10.4); Monocytes # 0.6 K/mm3 (0.1-1.0); Monocytes % 4.5 % (1.7-9.3); Neutrophils # 10.4 K/mm3 (1.8-7.8); Neutrophils % 83.1 % (37.0-80.0); Platelet Count 363 K/mm3 (142-424); Red Blood Count 3.97 M/mm3 (4.20-5.40); Red Cell Distribution Width 14.6 % (11.5-17.5); White Blood Count 12.6 K/mm3 (4.8-10.8)
[2022-06-30 07:34] LABS: Alanine Aminotransferase 17 U/L (12-78); Albumin Level 3.5 g/dl (3.5-5.0); Albumin/Globulin Ratio 1.3 (1.1-1.8); Alkaline Phosphatase 81 U/L (38-126); Aspartate Amino Transferase 25 U/L (14-36); Bilirubin,Total 0.6 mg/dl (0.2-1.3); Blood Urea Nitrogen 38 mg/dl (7-17); Calcium 8.3 mg/dl (8.4-10.2); Carbon Dioxide 31 mmol/L (22.0-30.0); Chloride 100 mmol/L (98-107); Creatinine Clearance Estimated 34 mL/min (50-200); Estimated Glomerular Filt Rate 36 ml/min (>60); GFR (African American) 44 ML/MIN (>60); Globulin 2.7 g/dL (1.3-3.2); Glucose 160 mg/dl (74-100); Magnesium 2.5 mg/dl (1.6-2.3); Phosphorous 3.6 mg/dl (2.5-4.5); Sodium 142 mmol/L (136-145); Total Protein,Serum 6.2 g/dl (6.3-8.2)
--- NOTE | 2022-06-30 09:04 | P.PN_ITS ---
[facility] Disclaimer: The information contained in this section may have been updated after the patient was seen, as this information can be updated by other users. Medical History (Updated 06/27/22 @ 22:46 by Chandni Baptiste RN) Anxiety Breast cancer Depression Diabetes Hyperlipidemia Hypertension Surgical History (Updated 06/27/22 @ 22:46 by Chandni Baptiste RN) History of lumpectomy of left breast Social History (Updated 06/27/22 @ 22:44 by Chandni Baptiste RN) Smoking Status: Never smoker second hand exposure: No alcohol intake: never substance use type: denies use current occupational status: retired Travel in the last 8 weeks: [place] the [place] household members: spouse housing: house current occupational exposures/hazards: No [facility] Anesthesia Checklist Patient Identification Patient Identification: Arm Band Structural Data Admitted From: Inpatient Planned Operative Procedure/s: EGD Consent for Planned Operative Procedure(s) Verified: Yes Verified Documents: Surgical Consent and History and Physical NPO Status Verified Time NPO: 00:00 Additional verifications Anesthesia Reactions: No Airway Assessment C-Spine Mobility Assessed: Yes TMJ Mobility Assessed: Yes Dentition: Good Dentition Neurological Assessment Level of Consciousness: Awake and Alert Anesthesia Plan Anesthesia Risk discussed: Yes Anesthesia Plan: Verified ASA Class: III Anesthesia Type: MAC
--- NOTE | 2022-06-30 09:08 | HMH.SCOPE ---
Procedure: Date: 06/30/22 Patient Date of :: 1945 Procedure Performed:: Esophagogastroduodenoscopy with biopsies Indications:: Patient is a 76-year-old female. She was admitted on 06/27/2022 with a 2-week history of epigastric and substernal abdominal pain occurring postprandially with vomiting. Initially this started with diarrhea. She described inability to eat. She did have a CT scan performed which revealed findings of enteritis. She was admitted for inpatient management. There was concern for possible chronic mesenteric ischemia. Surgical consultation was obtained. She did have Hemoccult positive stool and had some symptoms of melena. She did have a stool diarrhea panel which was positive for Sapovirus. Performing Provider:: Rafat Chamorro MD Referring Provider:: Jovanni Chen Sedation:: MAC sedation Procedure:: Patient was taken to endoscopy procedure room. She was positioned in lateral decubitus position. Adequate intravenous sedation was achieved with anesthesia titration of propofol. Olympus endoscope was inserted via the oropharynx. Esophagus was cannulated. There were or findings of some cricopharyngeal spasm. Very proximal esophagus appeared relatively unremarkable but significant esophagitis was noted between approximately 20 and 35 cm from the incisors. This was consistent with severe erosive exudative esophagitis. Gastroesophageal junction was encountered at 35 cm. Stomach was cannulated and insufflated. Retroflexion revealed extremely small hiatal hernia. Overall gastric lumen appeared unremarkable. Pylorus was traversed. In the duodenal bulb there was some mild nonerosive duodenitis. However in the distal duodenum there was noted to be significant erosive duodenitis characterized by multiple small punctate ulcers versus moderate erosions. This likely extended into the proximal jejunum but endoscope could not be advanced to this distance. These would not biopsy due to the potential for uncontrollable hemorrhage. Endoscope was withdrawn into the stomach and gastric mucosal biopsies obtained for LETICIA test for H. pylori. Endoscope was withdrawn into the distal esophagus and a couple of biopsies were obtained of the severe esophagitis. Stomach was desufflated and the endoscope was withdrawn. Findings:: Severe erosive exudative esophagitis between 20 and 35 cm Gastroesophageal junction at 35 cm Extremely tiny hiatal hernia Mild nonerosive duodenitis within the bulb Significant erosive distal duodenitis characterized by too numerous to count punctate ulcerations versus larger erosions extending likely into the jejunum Recommendations:: Medical therapy for esophagitis/duodenitis Complications:: None immediately apparent Estimated blood obtained (mL): 2
--- NOTE | 2022-06-30 10:00 | CT_ITS ---
FINAL REPORT TECHNIQUE: Pre-and postcontrast images of the abdomen and pelvis were performed by computed tomography. Extensive 3-D reconstruction images were performed. A CTA was performed. This study was performed with techniques to keep radiation doses as low as reasonably achievable (ALARA). Individualized dose reduction techniques using automated exposure control or adjustment of mA and/or kV according to the patient''s size were employed. CLINICAL HISTORY: mesenteric ischemia COMPARISON: 06/27/2022 FINDINGS: CTA: There is no evidence of aortic dissection or aneurysm. Celiac axis and its branches are patent. SMA is patent, without stenosis. Right renal artery is patent but with a short segment of stenosis just distal to its origin. There is dense calcification of the origin of the left renal artery with [id number] stenosis. Bilateral common iliac arteries, external iliac arteries and internal iliac arteries are patent, without stenosis. Abdomen: There are new, small bilateral pleural effusions. Liver is homogeneous. Gallbladder is present. Spleen and adrenal glands are without acute abnormality. Kidneys are unremarkable. There is distal esophageal wall thickening. Esophagitis not excluded. Again seen, is abnormal wall thickening and inflammation surrounding the duodenum, worse from prior exam. There is also abnormal attenuation surrounding the pancreatic head with inflammatory changes extending into the right retroperitoneum. Differential considerations would include peptic ulcer disease, duodenitis and pancreatitis. There are fluid-filled small bowel loops without obstruction. Abdominal portions of the colon are also fluid-filled. There is no lymphadenopathy. Pelvis: Patient is status post hysterectomy. The appendix is not visualized. There are no secondary findings of appendicitis. Distal colon is fluid-filled. Urinary bladder is unremarkable. There is no lymphadenopathy or ascites. No acute osseous abnormality is seen. IMPRESSION: 1. No abdominal aortic aneurysm or dissection. No mesenteric stenosis or occlusion. 2. Worsening wall thickening of the duodenum with surrounding inflammatory changes, favor peptic ulcer disease or duodenitis. Pancreatitis not excluded. 3. Fluid-filled colon and small bowel loops which could represent enterocolitis. 4. New, small bilateral pleural effusions. Reviewed, Interpreted and Dictated by Julianna Quevedo MD Transcribed by Yael Raymond Authenticated and [facility]
[2022-06-30 11:19] LABS: POC Glucose,Bedside 121 (70-110)
--- NOTE | 2022-06-30 12:59 | EXP.CARD.CON ---
History of Present Illness History of Present Illness Consult date: 06/30/22 Requesting physician: Rebecca Chen Chief complaint: enteritis History of present illness: Hospitalist note: Ms. Rod is a 76-year-old female with a past medical history of DM, CKD, Depression, Anxiety and Hyperlipidemia. She presents to [facility] with a 2 week history of abdominal pain associated with nausea, vomiting and initially started with diarrhea then proceeded to have no bowel movements.? She denies known similar sick contacts, fevers.? She reports that she saw her PCP and had a Gall Bladder US that was unremarkable.? Due to the continued pain and inability to eat without nausea and vomiting she came into the ER for evaluation.? In the ER the patient underwent a CT of the abdomen that was consistent with Enteritis.? EKG showed a Sinus Tachycardia with HR of [address] segment elevation or depression.? CMP showed a creatinine of 2.30, patient's most recent baseline creatinine is 1.50.? In the ER the patient received NS fluid bolus x 1 and was placed on maintenance fluids at 150 ml/hr.? Stool studies have been ordered, patient has been given Antiemetics, she will be placed on Zosyn to cover gram negative and anaerobic coverage since the patient has complaints of symptoms that have persisted x 2 weeks. The plan of care was discussed with the patient and her daughter at bedside.? Both verbalized understanding and agreement with the plan of care.? Cardiology note: 76 year old female currently admitted to hospital for presumed enteritis secondary to Sapovirus. Cardiology was asked to consult due to significant plaque noted in the ostium of celiac trunk and mesenteric arteries on CT abdomen and pelvis. Concern is for potential ischemic gastritis/enertitis. Patient reports ongoing but improving abdominal pain and nausea. Creatinine noted to be 2.3 on admission and has trended down to 1.4 with fluids. A cta of abdomen/pelvis shows no abdominal aortic aneurysm or dissection. No mesenteric stenosis or occlusion. Worsening wall thickening of the duodenum with surrounding inflammatory changes, favor peptic ulcer disease or duodenitis. Pancreatitis not excluded. Fluid-filled colon and small bowel loops which could represent enterocolitis. New small bilateral pleural effusions noted. [facility] Disclaimer: The information contained in this section may have been updated after the patient was seen, as this information can be updated by other users. Medical History (Updated 06/30/22 @ 14:23 by Israel Cho MD) Anxiety Breast cancer Depression Diabetes Hyperlipidemia Hypertension Surgical History (Updated 06/27/22 @ 22:46 by Chandni Baptiste, RN) History of lumpectomy of left breast Social History (Updated 06/27/22 @ 22:44 by Chandni Baptiste, RN) Smoking Status: Never smoker second hand exposure: No alcohol intake: never substance use type: denies use current occupational status: retired Travel in the last 8 weeks: Inside the [place] household members: spouse housing: house current occupational exposures/hazards: No Review of Systems Review of Systems Review of systems:: pertinent systems reviewed and negative unless documented below *Gastrointestinal Gastrointestinal: Reports nausea and Reports vomiting *Neurologic Neurologic: Reports system reviewed and no additional complaints, except as documented Exam Data for Last 24 hours Vital signs and Labs for Last 24 Hours: Temp Pulse Resp BP Pulse Ox 97.2 F L 71 18 128/75 95 06/30/22 09:10 06/30/22 12:30 06/30/22 12:30 06/30/22 12:30 06/30/22 12:30 Laboratory Results - last 24 hr 06/29/22 16:22: POC Glucose 179 H 06/29/22 20:16: POC Glucose 179 H 06/30/22 04:48: POC Glucose 146 H 06/30/22 06:36: WBC 12.6 H, RBC 3.97 L, Hgb 12.0 L, Hct 38.3, MCV 96.6, MCH 30.3, MCHC 31.4 L, RDW 14.6, Plt Count 363, MPV 8.1, Neut % (Auto) 83.1 H, Lymph % (
--- NOTE | 2022-06-30 14:18 | EXP.ACUTE.PN ---
Subjective *Date: 06/30/22 *Time: 14:18 Interval history: Flat affect on exam. Patient frustrated that we do not have any solutions for her. Discussed that her kidney injury is getting better, we have a diagnosis for her gastroenteritis with Sapa virus, and her CTA does not show mesenteric artery stenosis/ischemia. Still feeling discomfort in her belly. Stable on room air. Afebrile. Has had bowel movements this morning that are dark. Medical Exam Vital signs and Labs for Last 24 Hours: Vital Signs Temp Pulse Resp BP Pulse Ox 06/30/22 13:30 74 16 124/69 97 06/30/22 12:30 71 18 128/75 95 06/30/22 11:30 66 20 134/68 95 06/30/22 11:00 70 16 151/81 H 95 06/30/22 10:30 71 16 141/93 H 94 L 06/30/22 10:15 71 20 119/66 95 06/30/22 08:00 95 06/30/22 10:00 73 16 114/67 95 06/30/22 09:45 72 20 122/66 95 06/30/22 09:30 71 18 123/65 95 06/30/22 09:30 77 17 117/63 98 06/30/22 09:10 97.2 F L 76 17 113/56 L 98 06/30/22 09:20 77 17 117/63 98 06/30/22 08:00 98.1 F 76 17 125/55 L 97 06/30/22 04:00 98.1 F 82 16 165/65 H 95 06/29/22 19:48 69 18 122/77 98 06/29/22 16:00 98.0 F 75 18 116/72 99 Intake and Output 06/29/22 06/30/22 06/30/22 23:59 07:59 15:59 Intake Total 1669 / 1669 Output Total 0 / 300 0 / 0 0 / 0 Balance 0 / 40 0 / 1669 1669 / 1669 Intake: Intake, Oral Amount 240 / 240 Intake, Total IV Amount 1429 / 1429 0.9 % Sodium Chloride 1000ML 1, 1429 / 1429 000 ml @ 100 mls/hr IV .Q10H [facility] Rx#:[id number] Output: Output, Urine Amount 0 / 300 0 / 0 0 / 0 Other: Number of Unmeasured Voids 1 1 1 Number of Bowel Movements 1 Weight 62.19 kg 63.644 kg Patient Weight 06/30/22 23:59 Weight 63.644 kg Laboratory Results - last 24 hr 06/29/22 16:22: POC Glucose 179 H 06/29/22 20:16: POC Glucose 179 H 06/30/22 04:48: POC Glucose 146 H 06/30/22 06:36: WBC 12.6 H, RBC 3.97 L, Hgb 12.0 L, Hct 38.3, MCV 96.6, MCH 30.3, MCHC 31.4 L, RDW 14.6, Plt Count 363, MPV 8.1, Neut % (Auto) 83.1 H, Lymph % (Auto) 12.2, [place] % (Auto) 4.5, Eos % (Auto) 0.0 L, Baso % (Auto) 0.2, Neut # (Auto) 10.4 H, Lymph # (Auto) 1.5, [place] # (Auto) 0.6, Eos # (Auto) 0.0, Baso # (Auto) 0.0 06/30/22 06:36: Sodium 142, Potassium 3.0 L, Chloride 100, Carbon Dioxide 31 H, Anion Gap 14.0, BUN 38 H, Creatinine 1.40 H, Estimated Creat Clear 34, Estimated GFR 36 L, Est GFR ( Amer) 44 L, Glucose 160 H D, Calcium 8.3 L, Phosphorus 3.6, Magnesium 2.5 H D, Total Bilirubin 0.6, AST 25, ALT 17 D, Alkaline Phosphatase 81, Total Protein 6.2 L, Albumin 3.5, Globulin 2.7, Albumin/Globulin Ratio 1.3 06/30/22 11:12: POC Glucose 121 H I & O for Labs for Last 24 Hours: Intake & Output 06/27/22 06/28/22 06/29/22 06/30/22 23:59 23:59 23:59 23:59 Intake Total 1000 / 1000 1080 / 1180 340 / 340 1669 / 1669 Output Total 900 / 900 300 / 300 0 / 0 Balance 1000 / 1000 180 / 280 40 / 40 1669 / 1669 Weight 62.652 kg 62.652 kg 62.19 kg 63.644 kg Constitutional: Present no acute distress, average body habitus and chronically ill appearing Head: Present atraumatic Neck: Present normal inspection Respiratory: Present normal respiratory effort; Absent accessory muscle use, rhonchi, wheezes or crackles Cardiac: Present Reg Rate and Rhythm GI: Present soft, tenderness and hypoactive bowel sounds; Absent normal bowel sounds or bruit Extremities: Present normal inspection Skin: Present intact Neuro: Present alert, awake and oriented x 3 Comment:: Flat affect Assessment and Plan *Assessment and plan (1) Enteritis: Status: Acute Category: Medical Code(s): K52.9 - Noninfective gastroenteritis and colitis, unspecified (2) Melena: Status: Acute Category: Medical Code(s): K92.1 - Melena (3) Acute kidney injury: Status: Acute Category: Medical Code(s): N17.9 - Acute kidney failure, unspe
[2022-06-30 15:48] LABS: POC Glucose,Bedside 164 (70-110)
--- NOTE | 2022-06-30 15:55 | PC.NURSE ---
Patient with incontinent episodes of dark, loose diarrhea. MD aware. Currently on liquid diet. Lung sounds clear. Slow to respond at times but answers appropriately. IV potassium given and tolerated well for hypokalemia. Ambulates to bathroom with standby assist.
[2022-06-30 18:23] LABS: Hematocrit 33.9 % (37.0-47.0)
[2022-06-30 18:32] LABS: Hemoglobin 10.5 g/dL (12.2-16.2)
[2022-06-30 20:32] LABS: POC Glucose,Bedside 161 (70-110)
[2022-07-01] VITALS: BP 111/61; PULSE 68; RESP 16; TEMP 36.6; O2SAT 96
--- NOTE | 2022-07-01 03:27 | PC.NURSE ---
Pt. had asked for soda several times last night and she was told she is on a bland diet. She was told the soda isn't a good idea. No other changes noted.
[2022-07-01 04:00] VITALS: BP 126/71; PULSE 67; RESP 16; TEMP 36.6; O2SAT 95; BMI 26.4
[2022-07-01 05:23] LABS: POC Glucose,Bedside 85 (70-110)
--- NOTE | 2022-07-01 06:33 | EXP.SURG.PN ---
Subjective Narrative: Patient is taking full liquid. She does have some discomfort after swallowing but is tolerating this. No abdominal pain. She has had some potential melena. Exam Data for Last 24 hours Vital signs and Labs for Last 24 Hours: Temp Pulse Resp BP Pulse Ox 97.9 F 67 16 126/71 95 07/01/22 04:00 07/01/22 04:00 07/01/22 04:00 07/01/22 04:00 07/01/22 04:00 Laboratory Results - last 24 hr 06/30/22 06:36: WBC 12.6 H, RBC 3.97 L, Hgb 12.0 L, Hct 38.3, MCV 96.6, MCH 30.3, MCHC 31.4 L, RDW 14.6, Plt Count 363, MPV 8.1, Neut % (Auto) 83.1 H, Lymph % (Auto) 12.2, [place] % (Auto) 4.5, Eos % (Auto) 0.0 L, Baso % (Auto) 0.2, Neut # (Auto) 10.4 H, Lymph # (Auto) 1.5, [place] # (Auto) 0.6, Eos # (Auto) 0.0, Baso # (Auto) 0.0 06/30/22 06:36: Sodium 142, Potassium 3.0 L, Chloride 100, Carbon Dioxide 31 H, Anion Gap 14.0, BUN 38 H, Creatinine 1.40 H, Estimated Creat Clear 34, Estimated GFR 36 L, Est GFR ( Amer) 44 L, Glucose 160 H D, Calcium 8.3 L, Phosphorus 3.6, Magnesium 2.5 H D, Total Bilirubin 0.6, AST 25, ALT 17 D, Alkaline Phosphatase 81, Total Protein 6.2 L, Albumin 3.5, Globulin 2.7, Albumin/Globulin Ratio 1.3 06/30/22 11:12: POC Glucose 121 H 06/30/22 15:41: POC Glucose 164 H 06/30/22 17:55: Hgb 10.5 L D, Hct 33.9 L 06/30/22 20:22: POC Glucose 161 H 07/01/22 05:17: POC Glucose 85 I & O for Last 24 hours: Intake & Output 06/28/22 06/29/22 06/30/22 07/01/22 11:59 11:59 11:59 11:59 Intake Total 1120 / 1120 1300 / 1300 1909 / 1909 Output Total 300 / 300 900 / 900 0 / 0 150 / 150 Balance 820 / 820 400 / 400 0 / 0 1759 / 1759 Weight 138 lb 1.984 oz 137 lb 1.984 oz 140 lb 4.984 oz 144 lb *Routine Abdominal Exam Abdominal: Present soft Progress Note: A&P Assessment and plan (1) CAD (coronary artery disease): Status: Chronic (2) Acute kidney injury: Status: Acute (3) Enteritis: Status: Acute Assessment and plan: Upper endoscopy yesterday revealed findings of significant erosive exudative esophagitis and biopsies were obtained. She also had distal duodenal erosions/punctate ulcers with no evidence of any active bleeding. Continue to monitor hemoglobin and treat esophagitis/enteritis medically. (4) Hypertension: Status: Chronic
[2022-07-01 07:09] LABS: Basophils % 0.4 % (0.1-2.0); Eosinophils # 0.2 K/mm3 (0.0-0.4); Eosinophils % 1.9 % (0.1-12.0); Hematocrit 30.5 % (37.0-47.0); Lymphocytes # 2.3 K/mm3 (0.7-4.5); Lymphocytes % 21.8 % (10-50); Mean Corpuscular HGB Conc 32.9 g/dL (31.8-35.4); Mean Corpuscular Hemoglobin 31.4 pg (27.0-31.2); Mean Corpuscular Volume 95.6 fl (81-99); Mean Platelet Volume 9.8 fl (7.4-10.4); Monocytes # 0.5 K/mm3 (0.1-1.0); Monocytes % 4.3 % (1.7-9.3); Neutrophils # 7.6 K/mm3 (1.8-7.8); Neutrophils % 71.6 % (37.0-80.0); Platelet Count 230 K/mm3 (142-424); Red Blood Count 3.19 M/mm3 (4.20-5.40); Red Cell Distribution Width 14.9 % (11.5-17.5); White Blood Count 10.6 K/mm3 (4.8-10.8)
[2022-07-01 07:27] VITALS: BP 137/73; PULSE 76; RESP 18; TEMP 36.5; O2SAT 99
[2022-07-01 07:35] LABS: Alanine Aminotransferase 17 U/L (12-78); Albumin Level 2.9 g/dl (3.5-5.0); Albumin/Globulin Ratio 1.1 (1.1-1.8); Alkaline Phosphatase 62 U/L (38-126); Anion Gap 9.7 mEq/L (5-15); Aspartate Amino Transferase 34 U/L (14-36); Bilirubin,Total 0.7 mg/dl (0.2-1.3); Blood Urea Nitrogen 28 mg/dl (7-17); Calcium 8.3 mg/dl (8.4-10.2); Carbon Dioxide 23 mmol/L (22.0-30.0); Chloride 110 mmol/L (98-107); Creatinine Clearance Estimated 40 mL/min (50-200); Estimated Glomerular Filt Rate 44 ml/min (>60); GFR (African American) 53 ML/MIN (>60); Globulin 2.6 g/dL (1.3-3.2); Glucose 97 mg/dl (74-100); Magnesium 2.4 mg/dl (1.6-2.3); Potassium 4.7 mmoL/L (3.5-5.1); Sodium 138 mmol/L (136-145); Total Protein,Serum 5.5 g/dl (6.3-8.2)
[2022-07-01 10:56] LABS: POC Glucose,Bedside 151 (70-110)
[2022-07-01 10:59] VITALS: BP 132/71; PULSE 69; RESP 18; TEMP 36.4; O2SAT 100
--- NOTE | 2022-07-01 12:51 | EXP.ACUTE.PN ---
Subjective *Date: 07/01/22 *Time: 14:39 Interval history: Patient tolerating p.o. intake very slowly this morning. Stable on room air. Afebrile overnight. Hemoglobin stable this morning at 10. Only 2 dark bowel movements since midnight. No chest pain or shortness of breath. Medical Exam Vital signs and Labs for Last 24 Hours: Vital Signs Temp Pulse Resp BP Pulse Ox 07/01/22 10:59 97.5 F L 69 18 132/71 100 07/01/22 07:27 97.7 F 76 18 137/73 99 07/01/22 04:00 97.9 F 67 16 126/71 95 07/01/22 00:00 97.9 F 68 16 111/61 96 06/30/22 20:00 97 06/30/22 20:00 97.2 F L 71 18 120/57 L 97 06/30/22 16:00 98.2 F 76 17 101/54 L 97 06/30/22 13:30 74 16 124/69 97 Intake and Output 06/30/22 07/01/22 07/01/22 23:59 07:59 15:59 Intake Total 240 / 1909 300 / 300 Output Total 0 / 150 50 / 400 350 / 400 Balance 240 / 1759 250 / -100 -350 / -100 Intake: Intake, Oral Amount 240 / 480 300 / 300 Output: Output, Urine Amount 0 / 150 50 / 400 350 / 400 Other: Number of Unmeasured Voids 1 1 1 Number of Bowel Movements 1 Weight 65.317 kg Patient Weight 07/01/22 23:59 Weight 65.317 kg Laboratory Results - last 24 hr 06/30/22 15:41: POC Glucose 164 H 06/30/22 17:55: Hgb 10.5 L D, Hct 33.9 L 06/30/22 20:22: POC Glucose 161 H 07/01/22 05:17: POC Glucose 85 07/01/22 06:45: WBC 10.6, RBC 3.19 L, Hgb 10.0 L, Hct 30.5 L, MCV 95.6, MCH 31.4 H, MCHC 32.9, RDW 14.9, Plt Count 230 D, MPV 9.8, Neut % (Auto) 71.6, Lymph % (Auto) 21.8, [place] % (Auto) 4.3, Eos % (Auto) 1.9, Baso % (Auto) 0.4, Neut # (Auto) 7.6, Lymph # (Auto) 2.3, [place] # (Auto) 0.5, Eos # (Auto) 0.2, Baso # (Auto) 0.0 07/01/22 06:45: Sodium 138, Potassium 4.7 D, Chloride 110 H, Carbon Dioxide 23, Anion Gap 9.7, BUN 28 H D, Creatinine 1.20 H, Estimated Creat Clear 40, Estimated GFR 44 L, Est GFR ( Amer) 53 L D, Glucose 97, Calcium 8.3 L, Magnesium 2.4 H, Total Bilirubin 0.7, AST 34 D, ALT 17, Alkaline Phosphatase 62, Total Protein 5.5 L, Albumin 2.9 L D, Globulin 2.6, Albumin/Globulin Ratio 1.1 07/01/22 10:49: POC Glucose 151 H I & O for Labs for Last 24 Hours: Intake & Output 06/28/22 06/29/22 06/30/22 07/01/22 23:59 23:59 23:59 23:59 Intake Total 1080 / 1180 340 / 340 1909 / 1909 300 / 300 Output Total 900 / 900 300 / 300 100 / 150 400 / 400 Balance 180 / 280 40 / 40 1809 / 1759 -100 / -100 Weight 62.652 kg 62.19 kg 63.644 kg 65.317 kg Constitutional: Present no acute distress, average body habitus and chronically ill appearing Head: Present atraumatic Neck: Present normal inspection Respiratory: Present normal respiratory effort; Absent accessory muscle use, rhonchi, wheezes or crackles Cardiac: Present Reg Rate and Rhythm GI: Present soft, tenderness and hypoactive bowel sounds; Absent normal bowel sounds or bruit Extremities: Present normal inspection Skin: Present intact Neuro: Present alert, awake and oriented x 3 Comment:: Flat affect Assessment and Plan *Assessment and plan (1) Enteritis: Status: Acute Category: Medical Code(s): K52.9 - Noninfective gastroenteritis and colitis, unspecified (2) Melena: Status: Acute Category: Medical Code(s): K92.1 - Melena (3) Acute kidney injury: Status: Acute Category: Medical Code(s): N17.9 - Acute kidney failure, unspecified (4) Depression: Status: Chronic Qualifiers: Depression Type: unspecified Qualified Code(s): F32.A - Depression, unspecified Category: Medical Code(s): F32.A - Depression, unspecified (5) Hypertension: Status: Chronic Category: Medical Code(s): I10 - Essential (primary) hypertension Plan 76-year-old female with past medical history of DM, HTN, Hyperlipidemia presents with a two week history of afebrile abdominal pain associated with with p.o. intake.? Causing early satiety, weight loss nausea, vomiting.? Sapoviru
[2022-07-01 15:04] VITALS: BP 125/64; PULSE 70; RESP 16; TEMP 36.8; O2SAT 98
[2022-07-01 16:24] LABS: POC Glucose,Bedside 178 (70-110)
--- NOTE | 2022-07-01 17:12 | PC.NURSE ---
Pt has c/o discomfort to epigastric area after swallowing this AM. She remains on bland diet at this time and tolerating it. Has ambulated in room and been up to the chair today. Elimination assessed. Dark sediment noted in pt's urine. VSS. Call light within reach.
[2022-07-01 18:31] LABS: Hemoglobin 9.5 g/dL (12.2-16.2)
[2022-07-01 20:00] VITALS: BP 102/54; PULSE 76; RESP 14; TEMP 36.4; O2SAT 97
[2022-07-01 20:56] LABS: POC Glucose,Bedside 194 (70-110)
[2022-07-02] VITALS: BP 100/54; PULSE 67; RESP 14; TEMP 36.8; O2SAT 96
--- NOTE | 2022-07-02 03:53 | PC.NURSE ---
Patient remains on bland diet at this time and tolerating it. Has ambulated in room and been up to the chair tonight. VSS. Call light within reach. No changes noted.
[2022-07-02 04:00] VITALS: BP 122/58; PULSE 66; RESP 16; TEMP 36.9; O2SAT 95; BMI 26.7
[2022-07-02 04:53] LABS: POC Glucose,Bedside 94 (70-110)
[2022-07-02 07:07] LABS: Basophils % 0.6 % (0.1-2.0); Eosinophils # 0.2 K/mm3 (0.0-0.4); Eosinophils % 2.7 % (0.1-12.0); Hemoglobin 9.2 g/dL (12.2-16.2); Lymphocytes # 2.3 K/mm3 (0.7-4.5); Lymphocytes % 32.9 % (10-50); Mean Corpuscular Hemoglobin 31.4 pg (27.0-31.2); Mean Corpuscular Volume 94.9 fl (81-99); Monocytes # 0.3 K/mm3 (0.1-1.0); Monocytes % 3.6 % (1.7-9.3); Neutrophils # 4.3 K/mm3 (1.8-7.8); Neutrophils % 60.2 % (37.0-80.0); Platelet Count 241 K/mm3 (142-424); Red Blood Count 2.95 M/mm3 (4.20-5.40); White Blood Count 7.1 K/mm3 (4.8-10.8)
[2022-07-02 07:29] LABS: Alanine Aminotransferase 14 U/L (12-78); Albumin Level 2.6 g/dl (3.5-5.0); Albumin/Globulin Ratio 1.3 (1.1-1.8); Alkaline Phosphatase 61 U/L (38-126); Anion Gap 7.2 mEq/L (5-15); Aspartate Amino Transferase 28 U/L (14-36); Bilirubin,Total 0.5 mg/dl (0.2-1.3); Blood Urea Nitrogen 20 mg/dl (7-17); Calcium 7.9 mg/dl (8.4-10.2); Carbon Dioxide 25 mmol/L (22.0-30.0); Chloride 107 mmol/L (98-107); Creatinine Clearance Estimated 45 mL/min (50-200); Estimated Glomerular Filt Rate 48 ml/min (>60); GFR (African American) 58 ML/MIN (>60); Glucose 90 mg/dl (74-100); Potassium 4.2 mmoL/L (3.5-5.1); Sodium 135 mmol/L (136-145); Total Protein,Serum 4.6 g/dl (6.3-8.2)
[2022-07-02 08:00] VITALS: BP 135/70; PULSE 76; RESP 20; TEMP 36.8; O2SAT 99
--- NOTE | 2022-07-02 10:41 | EXP.DC.SUM ---
General Admission date:: 06/27/22 Discharge date: 07/02/22 HPI HPI HPI: The following is obtained from admission history and physical: Ms. Rod is a 76-year-old female with a past medical history of DM, CKD, Depression, Anxiety and Hyperlipidemia. She presents to [facility] with a 2 week history of abdominal pain associated with nausea, vomiting and initially started with diarrhea then proceeded to have no bowel movements. She denies known similar sick contacts, fevers. She reports that she saw her PCP and had a Gall Bladder US that was unremarkable. Due to the continued pain and inability to eat without nausea and vomiting she came into the ER for evaluation. In the ER the patient underwent a CT of the abdomen that was consistent with Enteritis. EKG showed a Sinus Tachycardia with HR of [address] segment elevation or depression. CMP showed a creatinine of 2.30, patient's most recent baseline creatinine is 1.50. In the ER the patient received NS fluid bolus x 1 and was placed on maintenance fluids at 150 ml/hr. Stool studies have been ordered, patient has been given Antiemetics, she will be placed on Zosyn to cover gram negative and anaerobic coverage since the patient has complaints of symptoms that have persisted x 2 weeks. The plan of care was discussed with the patient and her daughter at bedside. Both verbalized understanding and agreement with the plan of care. Of note, the patient has previously undergone upper endoscopy by Dr. Alban Crespo July 2017 for symptoms of dyspepsia epigastric pain and early satiety. She had findings of gastric enteropathy and gastritis. Pathology revealed acute and chronic peptic duodenitis, mild chronic gastritis, reflux esophagitis. She has had several colonoscopies in the past including in [address] Crespo which was normal, [address] Diana which was normal, [address] Crespo which revealed a polyp and pericolonic adhesions of the sigmoid colon . He reportedly had performed a follow-up colonoscopy last year in [place] according to the patient. Hospital Course Hospital Course Hospital Course: 76-year-old female with past medical history of DM, HTN, Hyperlipidemia presents with a two week history of afebrile abdominal pain associated with with p.o. intake.? Causing early satiety, weight loss nausea, vomiting.? Sapovirus positive on stool, occult blood positive.? CT concerning for enteritis, however there is significant calcified plaque in the ostium of the celiac trunk and mesenteric arteries.? CTA obtained showing patent mesenteric arteries.? Melena secondary to irritated upper GI.? Tolerating medical management.? Stable hemoglobin.? Acute kidney injury on admission has resolved. Problems addressed as follows: enteritis / gastritis Suspected bowel obstruction, ruled out Imaging on admission concerning for enteritis. Some initial concern for ischemia however CTA showed patent arteries. Stool sample however positive for Sapa virus. Antibiotics discontinued. Surgery was consulted and patient taken for EGD. Found to have significant esophagitis and duodenitis. During the course of her hospitalization, she developed GI bleed secondary to esophagitis and duodenitis in conjunction with heparin for DVT prophylaxis. Anticoagulation was stopped, PPI started, sucralfate started. Patient's hemoglobin stabilized at 9.2 on day of discharge. Tolerating advancement of diet and improved intake. No bloody stools for 24 hours prior to discharge. Patient doing better with no overt blockage. Stable for discharge home. Needs close follow-up with surgery in the coming weeks for possible rescope. Recommend Protonix 40 mg oral twice daily and sucralfate 4 times a day with meals and at bedtime. Continue twice daily P
[2022-07-02 11:32] LABS: POC Glucose,Bedside 207 (70-110)
--- NOTE | 2022-07-03 14:56 | CARE MANAGER ---
Contacted patient related to hospital discharge. She states she is doing well. She denies any questions or concerns. Is aware of her follow up appointments and picked up her medication. MARSHA Wong
[2022-07-08 05:02] LABS: Hep A Ab, IgM NEGATIVE; Hepatitis B Core Antibody IgM NEGATIVE; Hepatitis B Surface Antigen NEGATIVE; Hepatitis C Antibody NON REACTIVE
== END 2022-07-02 12:05 | disposition home or self-care (01) | DRG 371 ==
LOC: ER 20:51 → 2ND 06-28 03:06
PROVIDERS: Internal Medicine Adolescent Medicine; Nurse Practitioner Acute Care; Nurse Practitioner Family; Student in an Organized Health Care Education/Training Program; Surgery; Admitting Provider Student in an Organized Health Care Education/Training Program; Emergency Provider Emergency Medicine; PCP Nurse Practitioner Family; Visit Provider Student in an Organized Health Care Education/Training Program
PROC: 0DJ08ZZ Inspection of Upper Intestinal Tract, Via Natural or Artificial Opening Endoscopic (ICD-10-PCS; CPT 43235; principal; 2022-06-30 07:30)
DX: A04.8 Other specified bacterial intestinal infections (principal); K21.01 Gastro-esophageal reflux disease with esophagitis, with bleeding; K29.81 Duodenitis with bleeding; N17.9 Acute kidney failure, unspecified; E86.0 Dehydration; K52.9 Noninfective gastroenteritis and colitis, unspecified; N18.9 Chronic kidney disease, unspecified; F32.A Depression, unspecified; F41.9 Anxiety disorder, unspecified; I25.10 Atherosclerotic heart disease of native coronary artery without angina pectoris; E11.22 Type 2 diabetes mellitus with diabetic chronic kidney disease; Z79.899 Other long term (current) drug therapy; Z79.84 Long term (current) use of oral hypoglycemic drugs; I12.9 Hypertensive chronic kidney disease with stage 1 through stage 4 chronic kidney disease, or unspecified chronic kidney disease; E78.5 Hyperlipidemia, unspecified; T45.515A Adverse effect of anticoagulants, initial encounter
CPT/HCPCS: 43239; 36415; 71045; 74174; 74176; 76770; 80048; 80053; 80074; 81001; 82009; 82272; 82570; 82962; 83605; 83690; 83735; 84100; 84300; 85007; 85014; 85018; 85025; 87507; 88305; 88342; 93005; 99285; C9803; G0328; G0378; J2405; J2543; Q9967; U0003; U0005

== ENCOUNTER → 2022-07-10 13:34 | Outpatient (CLI) | payer MEDICARE, SELFPAY ==
[2022-07-10 14:13] LABS: Basophils % 0.4 % (0.1-2.0); Eosinophils # 0.1 K/mm3 (0.0-0.4); Eosinophils % 1.1 % (0.1-12.0); Hematocrit 33.3 % (37.0-47.0); Hemoglobin 10.1 g/dL (12.2-16.2); Lymphocytes # 1.5 K/mm3 (0.7-4.5); Lymphocytes % 19.6 % (10-50); Mean Corpuscular HGB Conc 30.3 g/dL (31.8-35.4); Mean Corpuscular Hemoglobin 29.9 pg (27.0-31.2); Mean Corpuscular Volume 98.7 fl (81-99); Mean Platelet Volume 7.4 fl (7.4-10.4); Monocytes # 0.4 K/mm3 (0.1-1.0); Monocytes % 5.1 % (1.7-9.3); Neutrophils # 5.6 K/mm3 (1.8-7.8); Neutrophils % 73.8 % (37.0-80.0); Platelet Count 348 K/mm3 (142-424); Red Blood Count 3.37 M/mm3 (4.20-5.40); White Blood Count 7.5 K/mm3 (4.8-10.8)
[2022-07-10 14:52] LABS: Alanine Aminotransferase 30 U/L (12-78); Albumin Level 3.6 g/dl (3.5-5.0); Albumin/Globulin Ratio 1.4 (1.1-1.8); Alkaline Phosphatase 91 U/L (38-126); Anion Gap 9.6 mEq/L (5-15); Aspartate Amino Transferase 35 U/L (14-36); Bilirubin,Total 0.4 mg/dl (0.2-1.3); Blood Urea Nitrogen 17 mg/dl (7-17); Calcium 8.8 mg/dl (8.4-10.2); Carbon Dioxide 27 mmol/L (22.0-30.0); Chloride 107 mmol/L (98-107); Estimated Glomerular Filt Rate 44 ml/min (>60); GFR (African American) 53 ML/MIN (>60); Globulin 2.5 g/dL (1.3-3.2); Glucose 121 mg/dl (74-100); Potassium 4.6 mmoL/L (3.5-5.1); Sodium 139 mmol/L (136-145); Total Protein,Serum 6.1 g/dl (6.3-8.2)
== END ==
PROVIDERS: PCP Nurse Practitioner Family; Visit Provider Nurse Practitioner Family
DX: D62 Acute posthemorrhagic anemia (principal); N17.9 Acute kidney failure, unspecified
CPT/HCPCS: 36415; 80053; 85025

== ENCOUNTER 2022-08-27 10:35 | Outpatient (CLI) | payer MEDICARE, SELFPAY ==
[2022-08-27 10:45] VITALS: BP 121/68; PULSE 65; RESP 18; TEMP 36.6; O2SAT 98
== END 2022-08-27 11:12 | disposition home or self-care (01) ==
LOC: INF 10:36
PROVIDERS: PCP Nurse Practitioner Family; Visit Provider Internal Medicine Adolescent Medicine
DX: M81.0 Age-related osteoporosis without current pathological fracture (principal)
CPT/HCPCS: 96372; J0897

== ENCOUNTER 2022-09-12 08:56 | Day surgery (SDC) | payer MEDICARE, SELFPAY ==
[2022-09-10 08:52] VITALS: BMI 28.3
[2022-09-12 09:33] VITALS: BP 146/76; PULSE 71; RESP 18; TEMP 36.1; O2SAT 100
--- NOTE | 2022-09-12 09:44 | P.PN_ITS ---
[facility] Disclaimer: The information contained in this section may have been updated after the patient was seen, as this information can be updated by other users. Medical History Anxiety Breast cancer Depression Diabetes Hyperlipidemia Hypertension Parkinson's disease Surgical History History of colonoscopy History of esophagogastroduodenoscopy (EGD) History of lumpectomy of left breast Family History Other No significant family history Social History Smoking Status: Never smoker second hand exposure: No alcohol intake: never substance use type: denies use current occupational status: retired Travel in the last 8 weeks: Inside the [place] household members: spouse housing: house current occupational exposures/hazards: No caffeine: Yes [facility] Anesthesia Checklist Patient Identification Patient Identification: Arm Band Structural Data Admitted From: Home Planned Operative Procedure/s: EGD Consent for Planned Operative Procedure(s) Verified: Yes Verified Documents: Surgical Consent and History and Physical NPO Status Verified Time NPO: 00:00 Additional verifications Anesthesia Reactions: No Airway Assessment C-Spine Mobility Assessed: Yes TMJ Mobility Assessed: Yes Dentition: Good Dentition Neurological Assessment Level of Consciousness: Awake and Alert Anesthesia Plan Anesthesia Risk discussed: Yes Anesthesia Plan: Verified ASA Class: III Anesthesia Type: MAC
[2022-09-12 09:45] VITALS: O2SAT 100
[2022-09-12 09:47] LABS: Basophils % 0.5 % (0.1-2.0); Eosinophils # 0.1 K/mm3 (0.0-0.4); Hematocrit 34.6 % (37.0-47.0); Hemoglobin 10.4 g/dL (12.2-16.2); Lymphocytes # 1.1 K/mm3 (0.7-4.5); Lymphocytes % 20.9 % (10-50); Mean Corpuscular HGB Conc 30.1 g/dL (31.8-35.4); Mean Corpuscular Hemoglobin 27.2 pg (27.0-31.2); Mean Corpuscular Volume 90.2 fl (81-99); Monocytes # 0.3 K/mm3 (0.1-1.0); Neutrophils # 3.7 K/mm3 (1.8-7.8); Neutrophils % 71.6 % (37.0-80.0); Platelet Count 312 K/mm3 (142-424); Red Blood Count 3.83 M/mm3 (4.20-5.40); Red Cell Distribution Width 14.8 % (11.5-17.5); White Blood Count 5.1 K/mm3 (4.8-10.8)
--- NOTE | 2022-09-12 09:57 | HMH.SCOPE ---
Procedure: Date: 09/12/22 Patient Date of :: 1945 Procedure Performed:: Esophagogastroduodenoscopy with biopsies Indications:: Patient is a 76-year-old female who presents for follow-up endoscopy.? She was admitted to the hospital on 06/27/2022 with a 2-week history of abdominal pain with associated nausea and vomiting.? This had initially began as diarrhea.? Outpatient work-up prior to admission included a gallbladder ultrasound which was unremarkable.? Patient was admitted due to her inability to eat.? In the emergency department CT scan was consistent with proximal bowel enteritis .? Patient had previously undergone upper endoscopy by Dr. Alban Crespo in July 2017 at which time his she had finding of gastric enteropathy and gastritis.? Pathology revealed acute and chronic peptic duodenitis, mild chronic gastritis, reflux esophagitis.? She has had prior colonoscopies in the past with Dr. Crespo.? She does state that she had a colonoscopy with Dr. Crespo in [place] last year.? There was a concern by the hospitalist service for possible chronic mesenteric ischemia.? She did undergo surgical consultation.? I performed a EGD on 06/30/2022 as an inpatient and she was found to have severe erosive exudative esophagitis between 20 and 35 cm, extremely tiny hiatal hernia, mild nonerosive duodenitis in the bulb but significant erosive distal duodenitis characterized by too numerous to count punctate ulcerations versus larger erosions extending likely into the jejunum.? Patient states that she has been doing well as an outpatient on Carafate and pantoprazole.? She has had some ongoing discomfort with swallowing with some belching but overall much better. However, she does describe some dysphagia type symptoms, throat clearing, and hoarseness. Performing Provider:: Rafat Chamorro MD Referring Provider:: Evelyn Cortés Sedation:: MAC sedation Procedure:: Patient history was obtained and appropriate physical examination was performed. Patient's medications and allergies were reviewed. Informed consent was obtained after explaining the benefits, alternatives, and risks of the procedure including, but not limited to, bleeding, perforation, missed lesions, and adverse reaction to anesthesia medications. Patient was transported to endoscopy procedure room. Patient was connected to monitoring devices. Throughout the procedure the patient's blood pressure, pulse, and oxygen saturations were monitored continuously. Patient identification and planned procedure were verified by the staff. Patient was positioned in lateral decubitus position. Olympus endoscope was inserted via the oropharynx. Esophagus was cannulated. She did have some narrowing at the cricopharyngeal region with probable spasm. Overall esophagus appeared unremarkable other than some findings suggestive of minor esophageal dysmotility. Gastroesophageal junction was encountered at 35 cm from the incisors. Previously noted severe erosive esophagitis has shown healing without sequelae. Stomach was cannulated and insufflated. There is extremely tiny minuscule hiatal hernia. There is some minor diffuse nonerosive gastropathy. Pylorus was traversed. Duodenum appeared unremarkable. Distal duodenum where she previously had multiple erosions appeared normal. Endoscope was withdrawn into the gastric lumen and biopsy was obtained. A couple biopsies were obtained at the gastroesophageal junction. Biopsy was obtained of the distal esophagus. Stomach was desufflated and the endoscope was withdrawn. Findings:: Cricopharyngeal narrowing/spasm Mild esophageal dysmotility Gastroesophageal junction at 35 cm Minuscule hiatal hernia Minor nonerosive diffuse gastropathy Recommendations:: Overall she has a marked improvement in her findings on upper endoscopy from previous. Follow-up on histopathology. Much of her symptoms including hoarseness, throat clearing, and dysphagia may be secondary to c
[2022-09-12 09:58] VITALS: BP 115/64; PULSE 62; RESP 17; TEMP 36.1; O2SAT 96
[2022-09-12 10:06] LABS: Hemoglobin A1C 7.7 % (4.0-6.0)
[2022-09-12 10:08] VITALS: BP 116/71; PULSE 64; RESP 16; O2SAT 96
[2022-09-12 10:09] LABS: Chloride 102 mmol/L (98-107); Potassium 4.6 mmoL/L (3.5-5.1); Sodium 138 mmol/L (136-145)
[2022-09-12 10:11] LABS: Blood Urea Nitrogen 16 mg/dl (7-17); Creatinine Clearance Estimated 51 mL/min (50-200); Estimated Glomerular Filt Rate 54 ml/min (>60); GFR (African American) 65 ML/MIN (>60)
[2022-09-12 10:12] LABS: Anion Gap 12.6 mEq/L (5-15); Calcium 9.4 mg/dl (8.4-10.2); Carbon Dioxide 28 mmol/L (22.0-30.0); Glucose 171 mg/dl (74-100); Magnesium 1.8 mg/dl (1.6-2.3)
[2022-09-12 10:18] VITALS: BP 118/67; PULSE 64; RESP 17; O2SAT 98
[2022-09-12 10:28] LABS: POC Glucose,Bedside 187 (70-110)
== END 2022-09-12 10:25 | disposition home or self-care (01) ==
PROVIDERS: PCP Nurse Practitioner Family; Visit Provider Surgery
PROC: 0DJ08ZZ Inspection of Upper Intestinal Tract, Via Natural or Artificial Opening Endoscopic (ICD-10-PCS; CPT 43235; principal; 2022-09-12 10:30)
DX: K31.9 Disease of stomach and duodenum, unspecified (principal); K44.9 Diaphragmatic hernia without obstruction or gangrene; Z79.899 Other long term (current) drug therapy; E11.9 Type 2 diabetes mellitus without complications
CPT/HCPCS: 43239; 36415; 80048; 82962; 83036; 83735; 85025; 88305

== ENCOUNTER 2022-11-12 21:35 | Emergency (ER) | payer MEDICARE, SELFPAY ==
[2022-11-12 21:36] VITALS: BP 175/83; PULSE 87; RESP 18; TEMP 36.7; O2SAT 94; BMI 27.4
[2022-11-12 21:59] VITALS: BP 131/71; PULSE 80; O2SAT 95
--- NOTE | 2022-11-12 22:19 | XR_ITS ---
PROCEDURE INFORMATION: Exam: XR Right Wrist Exam date and time: 11/12/2022 10:26 PM Age: 77 years old Clinical indication: Injury or trauma; Blunt trauma (contusions or hematomas); Wrist; Right; Patient HX: Fall yesterday TECHNIQUE: Imaging protocol: Radiologic exam of the right wrist. Views: 3 or more views. COMPARISON: No relevant prior studies available. FINDINGS: Bones/joints: There are partially visualized degenerative changes of the 1st basal joint. No acute fracture or dislocation is identified. Soft tissues: Normal. IMPRESSION: Degenerative disease without acute injury identified.
--- NOTE | 2022-11-12 22:19 | XR_ITS ---
PROCEDURE INFORMATION: Exam: XR Left Shoulder Exam date and time: 11/12/2022 10:26 PM Age: 77 years old Clinical indication: Injury or trauma; Blunt trauma (contusions or hematomas); Shoulder; Left; Patient HX: Fall yesterday TECHNIQUE: Imaging protocol: Radiologic exam of the left shoulder. Views: 2 or more views. COMPARISON: CR XR CHEST PORTABLE 06/27/2022 8:16 PM FINDINGS: Bones/joints: There is calcium deposition over the rotator cuff attachment concerning for calcific tendinopathy. There is some degenerative disease of the acromioclavicular joint. No acute fracture or dislocation is identified. Pleural space: There is a partially visualized small left pleural effusion. Soft tissues: Normal. IMPRESSION: 1. There is a partially visualized small left pleural effusion. 2. No acute osseous injury.
--- NOTE | 2022-11-12 22:19 | CT_ITS ---
PROCEDURE INFORMATION: Exam: CT Chest Without Contrast; Diagnostic Exam date and time: 11/12/2022 11:27 PM Age: 77 years old Clinical indication: Injury or trauma; Fall; Blunt trauma (contusions or hematomas); Additional info: Fall, bilateral inferior thoracic cage pain TECHNIQUE: Imaging protocol: Diagnostic computed tomography of the chest without contrast. Radiation optimization: All CT scans at this facility use at least one of these dose optimization techniques: automated exposure control; mA and/or kV adjustment per patient size (includes targeted exams where dose is matched to clinical indication); or iterative reconstruction. REPORTING DATA: Count of CT and Cardiac NM exams in prior 12 months: This patient has received 2 known CTs and 0 known cardiac nuclear medicine studies in the 12 months prior to the current study. COMPARISON: CHESTW CT chest w con 05/12/2017 10:12 AM FINDINGS: Lungs: There is a calcified granuloma left mid lung. Pleural spaces: Unremarkable. No pneumothorax. No pleural effusion. Heart: Unremarkable. No cardiomegaly. No pericardial effusion. Coronary arteries: There is mild coronary vascular calcification. Lymph nodes: Unremarkable. No enlarged lymph nodes. Vasculature: There is atherosclerotic disease of the visualized aorta and its major branch vessels. Bones/joints: There is diffuse degenerative disease of the visualized osseous structures. Soft tissues: There are calcifications left breast, similar to prior examination. IMPRESSION: No acute traumatic injury to the thorax. Incidental findings as above.
--- NOTE | 2022-11-12 22:19 | CT_ITS ---
PROCEDURE INFORMATION: Exam: CTA Abdomen and Pelvis With Contrast Exam date and time: 11/12/2022 11:31 PM Age: 77 years old Clinical indication: Injury or trauma; Fall; Blunt trauma; Other: Ruq/luq; Additional info: Fall, bilateral upper quadrant pain TECHNIQUE: Imaging protocol: Computed tomographic angiography of the abdomen and pelvis with contrast. Exam focused on the arteries. 3D rendering (Not supervised by radiologist): MIP and/or 3D reconstructed images were created by the technologist. Radiation optimization: All CT scans at this facility use at least one of these dose optimization techniques: automated exposure control; mA and/or kV adjustment per patient size (includes targeted exams where dose is matched to clinical indication); or iterative reconstruction. Contrast material: ISOVUE; Contrast volume: 100 ml; Contrast route: INTRAVENOUS (IV); REPORTING DATA: Count of CT and Cardiac NM exams in prior 12 months: This patient has received 2 known CTs and 0 known cardiac nuclear medicine studies in the 12 months prior to the current study. COMPARISON: CT ANGIO ABDOMEN PELVIS 06/30/2022 7:56 AM FINDINGS: Aorta: There is atherosclerotic disease of the visualized aorta and its major branch vessels. Celiac trunk and mesenteric arteries: No occlusion or significant stenosis. Renal arteries: No occlusion or significant stenosis. Right iliac arteries: No occlusion or significant stenosis. Left iliac arteries: No occlusion or significant stenosis. Liver: No mass. Gallbladder and bile ducts: Unremarkable. No calcified stones. No ductal dilation. Pancreas: Unremarkable. No mass. No ductal dilation. Spleen: Unremarkable. No splenomegaly. Adrenal glands: Unremarkable. No mass. Kidneys and ureters: Unremarkable. No solid mass. No hydronephrosis. Stomach and bowel: Unremarkable. No obstruction. No mucosal thickening. Appendix: No evidence of appendicitis. Intraperitoneal space: Unremarkable. No free air. No significant fluid collection. Lymph nodes: Unremarkable. No enlarged lymph nodes. Urinary bladder: Unremarkable. No mass. Reproductive: Unremarkable as visualized. Bones/joints: There is diffuse degenerative disease of the visualized osseous structures. There is anterolisthesis of L5 on S1. Soft tissues: Unremarkable. Other findings: There is a small fat containing umbilical hernia. IMPRESSION: No acute traumatic injury is identified in the abdomen or pelvis.
--- NOTE | 2022-11-12 22:20 | CT_ITS ---
PROCEDURE INFORMATION: Exam: CT Head Without Contrast Exam date and time: 11/12/2022 11:23 PM Age: 77 years old Clinical indication: Injury or trauma; Blunt trauma (contusions or hematomas); Patient HX: Fall yesterday TECHNIQUE: Imaging protocol: Computed tomography of the head without contrast. Radiation optimization: All CT scans at this facility use at least one of these dose optimization techniques: automated exposure control; mA and/or kV adjustment per patient size (includes targeted exams where dose is matched to clinical indication); or iterative reconstruction. REPORTING DATA: Count of CT and Cardiac NM exams in prior 12 months: This patient has received 2 known CTs and 0 known cardiac nuclear medicine studies in the 12 months prior to the current study. COMPARISON: MR HEAD/BRAIN WO CON 03/07/2022 3:40 PM FINDINGS: Brain: There are scattered white matter changes with areas of hypodensity which are nonspecific but most likely reflect chronic microvascular disease. No evidence for acute intracranial hemorrhage, midline shift, or mass effect. No compelling evidence for acute transcortical infarct. Cerebral ventricles: There is enlargement of the ventricles and sulci compatible with age-related atrophy. Paranasal sinuses: See Nasal cavity finding. Mastoid air cells: Visualized mastoid air cells are well aerated. Nasal cavity: There is leftward deviation of the bony nasal septum. There is polypoid disease versus retention cyst in the right maxillary sinus. Bones/joints: Unremarkable. No acute fracture. Soft tissues: Unremarkable. IMPRESSION: Age-related changes without acute abnormality detected.
--- NOTE | 2022-11-12 22:20 | CT_ITS ---
PROCEDURE INFORMATION: Exam: CT Cervical Spine Without Contrast Exam date and time: 11/12/2022 11:25 PM Age: 77 years old Clinical indication: Injury or trauma; Blunt trauma; Patient HX: Fall yesterday TECHNIQUE: Imaging protocol: Computed tomography of the cervical spine without contrast. Radiation optimization: All CT scans at this facility use at least one of these dose optimization techniques: automated exposure control; mA and/or kV adjustment per patient size (includes targeted exams where dose is matched to clinical indication); or iterative reconstruction. REPORTING DATA: Count of CT and Cardiac NM exams in prior 12 months: This patient has received 2 known CTs and 0 known cardiac nuclear medicine studies in the 12 months prior to the current study. COMPARISON: MR CERVICAL SPINE WO CON 06/02/2019 2:31 PM FINDINGS: Bones/joints: There is mild multilevel degenerative change. No acute fracture or dislocation is identified. Lungs: Lung apices are normal. Vasculature: There are atherosclerotic calcifications of the carotid bulbs bilaterally. Soft tissues: Unremarkable. IMPRESSION: Degenerative disease without acute injury identified.
[2022-11-12 22:30] VITALS: BP 155/76; PULSE 79; O2SAT 95
[2022-11-12 22:56] LABS: Basophils % 0.4 % (0.1-2.0); Eosinophils # 0.1 K/mm3 (0.0-0.4); Eosinophils % 1.1 % (0.1-12.0); Hematocrit 35.3 % (37.0-47.0); Hemoglobin 10.9 g/dL (12.2-16.2); Lymphocytes # 1.1 K/mm3 (0.7-4.5); Lymphocytes % 14.1 % (10-50); Mean Corpuscular HGB Conc 30.9 g/dL (31.8-35.4); Mean Corpuscular Hemoglobin 26.7 pg (27.0-31.2); Mean Corpuscular Volume 86.4 fl (81-99); Mean Platelet Volume 8.4 fl (7.4-10.4); Monocytes # 0.3 K/mm3 (0.1-1.0); Monocytes % 3.8 % (1.7-9.3); Neutrophils # 6.1 K/mm3 (1.8-7.8); Neutrophils % 80.5 % (37.0-80.0); Platelet Count 290 K/mm3 (142-424); Red Blood Count 4.09 M/mm3 (4.20-5.40); Red Cell Distribution Width 16.4 % (11.5-17.5); White Blood Count 7.5 K/mm3 (4.8-10.8)
[2022-11-12 23:00] LABS: Chloride 104 mmol/L (98-107); Potassium 4.1 mmoL/L (3.5-5.1); Sodium 142 mmol/L (136-145)
[2022-11-12 23:03] LABS: Alanine Aminotransferase 26 U/L (12-78); Albumin/Globulin Ratio 1.1 (1.1-1.8); Alkaline Phosphatase 95 U/L (38-126); Anion Gap 14.1 mEq/L (5-15); Aspartate Amino Transferase 28 U/L (14-36); Bilirubin,Total 0.4 mg/dl (0.2-1.3); Blood Urea Nitrogen 26 mg/dl (7-17); Carbon Dioxide 28 mmol/L (22.0-30.0); Creatinine Clearance Estimated 36 mL/min (50-200); Estimated Glomerular Filt Rate 36 ml/min (>60); GFR (African American) 44 ML/MIN (>60); Globulin 3.5 g/dL (1.3-3.2); Total Protein,Serum 7.5 g/dl (6.3-8.2)
[2022-11-12 23:04] LABS: Calcium 9.7 mg/dl (8.4-10.2); Glucose 285 mg/dl (74-100)
--- NOTE | 2022-11-12 23:05 | HMH.EDGENADL ---
Discharge Plan Disposition Patient Disposition: Home, Self-Care Condition: Good Prescriptions Prescriptions: No Action pantoprazole 40 mg tablet,delayed release (DR/EC) 40 mg PO DAILY famotidine 20 mg tablet 40 mg PO HS Qty: 60 1RF sitagliptin phosphate 100 mg tablet 100 mg PO DAILY citalopram 40 mg tablet 40 mg PO DAILY atorvastatin 40 MG tablet 40 mg PO DAILY atenolol 100 mg tablet 40 mg PO DAILY alprazolam 0.5 mg tablet 30 mg PO DAILY PRN (Reason: Anxiety) sucralfate 100 mg/mL suspension 1 g PO ACHS aspirin 81 mg Tablet 81 mg PO DAILY Neupro 1 mg/24 hour Patch 24 Hour 1 mg TRANSDERMAL DAILY Referrals Follow up/Referrals: Holly Cortés APRN [Primary Care Provider] - See instructions Activity Restrictions/Add. Instructions Additional Instructions/Restrictions: You were evaluated in the emergency department today. Please follow-up with your primary care provider over the next 3 days. Take Tylenol and ibuprofen at home as needed for pain. Return to the emergency department for any new or worsening symptoms. Clinical Impressions Clinical Impression: Fall, Acute shoulder pain, Contusion of rib Instructions Patient Instructions: DI for Rib Contusion, DI for Shoulder Pain Discharge ED Provider: Sayda Carrington General Adult HPI <Solomon Faustin MD - Last Filed: 11/12/22 23:36> General Chief complaint: Fall Stated complaint: AO fall 11/11 Lt shoulder and ribs injury Time Seen by Provider: 11/12/22 22:04 Mode of Arrival: Wheelchair Source of Information: Patient Limitations: No Limitations Description of Symptoms (Recalled from ER Triage Doc. by RN): Pt states she fell getting off elevator today. Complains of Left shoulder,elbow pain, Right wrist, and Bilateral rib pain worse upon inspiration. Bruise to left forehead, pt denies any LOC, fall was unwitnessed per pt. History of Present Illness HPI narrative: Patient is a 77-year-old female with no pertinent past medical history, no blood thinners who presents emergency department for evaluation of traumatic injury sustained in a fall. Patient states that she slipped in front of an elevator onto tile going forwards, hitting her anterior thorax as well as her head. No loss of consciousness. There is associated poorly localized headache. No vision changes. Since then she has had bilateral inferior thoracic cage pain worse with deep inspiration, bilateral upper quadrant abdominal pain. Denies vomiting. Pain is moderate to severe in intensity. There is associated right wrist pain, left shoulder pain. No other acute complaints at this time. Related Data Home Medications Medication Instructions Recorded Confirmed atorvastatin 40 mg tablet 40 mg PO DAILY Cholesterol 05/18/17 11/11/22 sitagliptin phosphate 100 mg tablet 100 mg PO DAILY Diabetes 05/23/19 11/11/22 atenolol 100 mg tablet 40 mg PO DAILY Hypertension 10/17/19 11/11/22 alprazolam 0.5 mg tablet 30 mg PO DAILY PRN Anxiety 06/28/22 11/11/22 aspirin 81 mg tablet 81 mg PO DAILY Blood thinner 08/27/22 11/11/22 rotigotine 1 mg/24 hour 1 mg transdermal DAILY parkinson's 08/27/22 11/11/22 transdermal 24 hour patch (Neupro) dx sucralfate 100 mg/mL oral 1 g PO ACHS stomach 08/27/22 11/11/22 suspension pantoprazole 40 mg tablet,delayed 40 mg PO DAILY 09/30/22 11/11/22 release citalopram 40 mg tablet 40 mg PO DAILY 11/11/22 11/11/22 Previous Rx's Medication Instructions Recorded famotidine 20 mg tablet 40 mg PO HS #60 tabs 09/30/22 Allergies Allergy/AdvReac Type Severity Reaction Status Date / Time No Known Allergies Allergy Verified 11/11/22 10:50 [facility] <Solomon Faustin MD - Last Filed: 11/12/22 23:36> [facility] Disclaimer: The information contained in this section may have been updated after the patient was seen, as this information can be updated by other users. Medical History (Reviewed 11/11/22 @ 10:51 by Sri Hinojosa
--- NOTE | 2022-11-12 23:22 | PC.NURSE ---
patient to CT
[2022-11-13] VITALS: BP 144/73; PULSE 76; O2SAT 95
[2022-11-13 00:44] VITALS: BP 151/73; PULSE 72; RESP 18; TEMP 36.7; O2SAT 95
== END 2022-11-13 00:46 | disposition home or self-care (01) ==
PROVIDERS: Emergency Medicine; Emergency Provider Emergency Medicine; PCP Nurse Practitioner Family
DX: R07.81 Pleurodynia (principal); S00.83XA Contusion of other part of head, initial encounter; M25.512 Pain in left shoulder; W17.89XA Other fall from one level to another, initial encounter; F32.A Depression, unspecified; F41.9 Anxiety disorder, unspecified; E11.9 Type 2 diabetes mellitus without complications; K21.9 Gastro-esophageal reflux disease without esophagitis; E78.5 Hyperlipidemia, unspecified; I10 Essential (primary) hypertension; G20 Parkinson's disease
CPT/HCPCS: 70450; 71250; 72125; 73030; 73110; 74174; 80053; 85025; 96374; 99285; J0131; Q9967

== ENCOUNTER 2022-11-17 05:58 | Emergency (ER) | payer MEDICARE, SELFPAY ==
[2022-11-17 05:58] VITALS: BP 101/69; PULSE 104; RESP 16; TEMP 36.2; O2SAT 95; BMI 27.4
[2022-11-17 06:24] LABS: Basophils % 0.3 % (0.1-2.0); Eosinophils # 0.1 K/mm3 (0.0-0.4); Eosinophils % 0.9 % (0.1-12.0); Hematocrit 44.6 % (37.0-47.0); Lymphocytes % 13.9 % (10-50); Mean Corpuscular HGB Conc 29.2 g/dL (31.8-35.4); Mean Corpuscular Hemoglobin 26.7 pg (27.0-31.2); Mean Corpuscular Volume 91.6 fl (81-99); Mean Platelet Volume 8.3 fl (7.4-10.4); Monocytes # 0.2 K/mm3 (0.1-1.0); Monocytes % 2.6 % (1.7-9.3); Neutrophils # 6.1 K/mm3 (1.8-7.8); Neutrophils % 82.3 % (37.0-80.0); Platelet Count 460 K/mm3 (142-424); Red Blood Count 4.86 M/mm3 (4.20-5.40); Red Cell Distribution Width 16.8 % (11.5-17.5); White Blood Count 7.4 K/mm3 (4.8-10.8)
--- NOTE | 2022-11-17 06:28 | HMH.EDGENADL ---
Discharge Plan Disposition Patient Disposition: Xfer Short-Term Hosp Prescriptions Prescriptions: No Action pantoprazole 40 mg tablet,delayed release (DR/EC) 40 mg PO NEEDED PRN (Reason: gerd) sitagliptin phosphate 100 mg tablet 100 mg PO DAILY citalopram 40 mg tablet 40 mg PO DAILY atorvastatin 40 MG tablet 40 mg PO DAILY atenolol 100 mg tablet 40 mg PO DAILY alprazolam 0.5 mg tablet 30 mg PO DAILY PRN (Reason: Anxiety) acetaminophen-codeine 300-30 mg tablet 300 tab PO Q6 PRN (Reason: Pain) Patient Comments: TAKE 1 TO 2 TABLETS BY MOUTH EVERY 6 HOURS NEEDED buspirone 10 mg tablet 10 mg PO NEEDED PRN (Reason: Anxiety) promethazine 25 mg tablet 25 mg PO NEEDED PRN (Reason: Nausea) Patient Comments: TAKE 1 TABLET BY MOUTH EVERY 6 HOURS NEEDED aspirin 81 mg Tablet 81 mg PO DAILY Referrals Follow up/Referrals: Holly Cortés APRN [Primary Care Provider] - See instructions Clinical Impressions Clinical Impression: Retroperitoneal air, AYAH (acute kidney injury), Acute uremia, DKA (diabetic ketoacidosis) Stand Alone Forms Stand Alone Forms: Transfer Record - ED Instructions Patient Instructions: DI for Acute Abdominal Pain Discharge ED Provider: Refugio Mcgregor General Adult HPI <Refugio Mcgregor MD - Last Filed: 11/20/22 01:40> General Chief complaint: Abdominal Pain Stated complaint: abdominal pain Time Seen by Provider: 11/17/22 06:00 Mode of Arrival: EMS Source of Information: Patient, Relative and EMS Limitations: No Limitations Description of Symptoms (Recalled from ER Triage Doc. by RN): Pt brought in by [facility], pt c/o abdominal pain that started Thursday associated with vomiting. Pt was here on Thu for a fall that resulted in negative CT/XRays. Followed up with Dr Cartagena on Thursday whom gave her phenergan and pain medicine. Pt states LBM was on Thursday. Pt is A/O x 4 at this time, daughter at bedside. History of Present Illness HPI narrative: 77-year-old female history of coronary artery disease, hypertension, hyperlipidemia who presents for abdominal pain and distention. Patient reports that she fell last Thursday approximately 5 days ago and was seen in ED with negative work-up. She was seen in clinic by her primary doctor who provided her with prescription Tylenol/codeine starting on Thursday. She reports that she has not had a bowel movement for at least 1 week. She reports worsening abdominal pain and distention. History also obtained from patient's daughter at bedside, she reports that the patient is confused and not acting herself. Patient has had poor p.o. intake at home. Patient has had frequent urination. Related Data Home Medications Medication Instructions Recorded Confirmed atorvastatin 40 mg tablet 40 mg PO DAILY Cholesterol 05/18/17 11/17/22 sitagliptin phosphate 100 mg tablet 100 mg PO DAILY Diabetes 05/23/19 11/17/22 atenolol 100 mg tablet 40 mg PO DAILY Hypertension 10/17/19 11/17/22 alprazolam 0.5 mg tablet 30 mg PO DAILY PRN Anxiety 06/28/22 11/17/22 aspirin 81 mg tablet 81 mg PO DAILY Blood thinner 08/27/22 11/17/22 pantoprazole 40 mg tablet,delayed 40 mg PO NEEDED PRN gerd 09/30/22 11/17/22 release citalopram 40 mg tablet 40 mg PO DAILY Depression 11/11/22 11/17/22 acetaminophen 300 mg-codeine 30 mg 300 tab PO Q6 PRN Pain 11/17/22 11/17/22 tablet buspirone 10 mg tablet 10 mg PO NEEDED PRN Anxiety 11/17/22 11/17/22 promethazine 25 mg tablet 25 mg PO NEEDED PRN Nausea 11/17/22 11/17/22 Allergies Allergy/AdvReac Type Severity Reaction Status Date / Time No Known Allergies Allergy Verified 11/11/22 10:50 [facility] <Refugio Mcgregor MD - Last Filed: 11/20/22 01:40> [facility] Disclaimer: The information contained in this section may have been updated after the patient was seen, as this information can be updated by other users. Medical History (Reviewed 11/11/22 @ 10:51 by
[2022-11-17 06:35] LABS: Alanine Aminotransferase 37 U/L (12-78); Albumin Level 4.4 g/dl (3.5-5.0); Albumin/Globulin Ratio 1.2 (1.1-1.8); Alkaline Phosphatase 79 U/L (38-126); Anion Gap 27.7 mEq/L (5-15); Aspartate Amino Transferase 49 U/L (14-36); Bilirubin,Total 1.1 mg/dl (0.2-1.3); Calcium 8.2 mg/dl (8.4-10.2); Carbon Dioxide 14 mmol/L (22.0-30.0); Chloride 101 mmol/L (98-107); Creatinine Clearance Estimated 14 mL/min (50-200); Estimated Glomerular Filt Rate 13 ml/min (>60); GFR (African American) 15 ML/MIN (>60); Globulin 3.6 g/dL (1.3-3.2); Lipase 106 U/L (23-300); Potassium 4.7 mmoL/L (3.5-5.1); Sodium 138 mmol/L (136-145)
[2022-11-17 06:36] LABS: Blood Urea Nitrogen 89 mg/dl (7-17); Glucose 447 mg/dl (74-100)
--- NOTE | 2022-11-17 06:40 | CT_ITS ---
FINAL REPORT CLINICAL HISTORY: abd pain distention, susy COMPARISON: 11/12/2022 FINDINGS: Axial CT images of the abdomen and pelvis were obtained without intravenous contrast. Coronal and sagittal reformatted images were also obtained.This study was performed with techniques to keep radiation doses as low as reasonably achievable (ALARA). Individualized dose reduction techniques using automated exposure control or adjustment of mA and/or kV according to the patient's size were employed. Abdomen: There is bibasilar atelectasis and a left pleural effusion. There is a small to moderate ascites present, new since the prior CT. There is thickening of the distal thoracic esophagus, new since the prior CT. There is significant wall thickening in the duodenum, which may represent duodenitis or a duodenal ulcer. There is new retroperitoneal air in the abdomen adjacent to the pancreas and duodenum worrisome for a perforation, the exact site of the perforation is not visualized. Abnormal retroperitoneal fluid is also present. The gallbladder is partially collapsed with wall thickening. There are moderate vascular calcifications present. The liver, spleen and pancreas have an unremarkable, unenhanced appearance. There is a small low-attenuation focus in the right kidney, most likely cyst, stable from the prior CT. Pelvis: Images of the pelvis reveal that the patient has undergone a previous hysterectomy. No mass or abnormal fluid collection is identified. IMPRESSION: Significant wall thickening in the duodenum, with retroperitoneal air, worrisome for a perforation in either a duodenitis or duodenal ulcer. The exact site of the perforation is not visualized on this exam. Abnormal retroperitoneal fluid is present as well. Small to moderate ascites, new since the prior CT. Reviewed, Interpreted and Dictated by Rafat Hernadez III, MD Transcribed by Tiffanie Campbell Authenticated and . [facility]
[2022-11-17 06:45] LABS: Acetone, Serum (Rapid) None Detected (None Detect)
--- NOTE | 2022-11-17 06:45 | CT_ITS ---
FINAL REPORT TECHNIQUE: Axial images were obtained from the lung apex to the mid abdomen by computed tomography. Coronal reformatted images were obtained. This study was performed with techniques to keep radiation doses as low as reasonably achievable, (ALARA). Individualized dose reduction techniques using automated exposure control or adjustment of mA and/or kV according to the patient''s size were employed. CLINICAL HISTORY: chest pain, recent fall COMPARISON: 11/12/2022 FINDINGS: There is no axillary adenopathy. There is no hilar or mediastinal adenopathy. Heart size is normal. Coronary artery calcifications are present. There is diffuse thickening of the thoracic esophagus, likely inflammatory, more prominent than on the prior CT of November 12. Mild bibasilar atelectasis is present as well as a small left pleural effusion. IMPRESSION: There is diffuse thickening of the thoracic esophagus, likely inflammatory, more prominent than noted on the prior CT of November 12. Mild bibasilar atelectasis and small left pleural effusion, more prominent than noted on the prior CT. Reviewed, Interpreted and Dictated by Rafat Hernadez III, MD Transcribed by Tiffanie Campbell Authenticated and [facility]
--- NOTE | 2022-11-17 06:59 | PC.NURSE ---
report given to valerio ocampo
[2022-11-17 07:00] VITALS: BP 117/74; PULSE 102; O2SAT 94
--- NOTE | 2022-11-17 07:00 | PC.NURSE ---
report given to ana maria Dobson
--- NOTE | 2022-11-17 07:02 | PC.NURSE ---
Dr. Partida at bedside
--- NOTE | 2022-11-17 07:07 | PC.NURSE ---
still operator batch or continuous surgeon paged
--- NOTE | 2022-11-17 07:07 | PC.NURSE ---
Dr. Mcgregor s/w Dr Chamorro
--- NOTE | 2022-11-17 07:14 | PC.NURSE ---
Called Radiology to request they contact the reading Radiologist team and request a STAT read on the CT d/t pt may needing emergent surgery.
[2022-11-17 07:15] LABS: VBG HCO3 16.9 mmol/L (23-30); VBG Oxygen Saturation 60.1 % (50-70); VBG PCO2 37.8 mmol/L (35-51); VBG PH 7.27 mmol/L (7.31-7.41); VBG PO2 37.5 mmol/L (28-40); VBG Total CO2 18.1 mmol/L (23-27)
--- NOTE | 2022-11-17 07:17 | PC.NURSE ---
Called lab to check status of Lactic Acid, they have not received sample yet. Staff collecting blood now for 2nd set of blood cultures
--- NOTE | 2022-11-17 07:20 | PC.NURSE ---
Radiology called and stated [facility] is reading it now.
[2022-11-17 07:36] LABS: Microscopic, Urine URINE MICROSCOPIC (MICROSCOPIC)
[2022-11-17 07:39] LABS: Appearance,Urine CLEAR (Clear); Bilirubin,Urine Negative (Negative); Blood, Urine 1+ (Negative); Color,Urine YELLOW (Yellow); Glucose,Urine (UA) 3+ (Negative); Ketones,Urine Negative (Negative); Leukocyte Esterase,Urine Negative (Negative); Nitrate,Urine Negative (Negative); PH,Urine 5.5 (5.0-8.5); Protein,Urine TRACE (Negative); Specific Gravity, Urine 1.015 (1.005-1.030); Urobilinogen,Urine 0.2 EU/dl (0.2)
[2022-11-17 07:43] LABS: Lactic Acid 3.9 mmol/L (0.7-2.1)
[2022-11-17 07:50] LABS: Bacteria,Urine Trace /lpf; RBC,Urine Occasional #/hpf (0-3); Squamous Epithelial Cell,Urine Occasional #/hpf (0-5)
[2022-11-17 07:56] VITALS: BP 99/64; PULSE 95; RESP 18; O2SAT 99
--- NOTE | 2022-11-17 07:59 | PC.NURSE ---
Dr Chamorro paged
[2022-11-17 08:00] VITALS: BP 99/65; PULSE 90; RESP 20; O2SAT 98
--- NOTE | 2022-11-17 08:00 | PC.NURSE ---
Rolf Gonzales returned call for Dr Chamorro, he was advised that the read is back on xray.
[2022-11-17 08:05] VITALS: BP 112/62; PULSE 95; RESP 20; O2SAT 100
--- NOTE | 2022-11-17 08:25 | PC.NURSE ---
fsbs 338, notified. pt resting with eyes closed. family at bedside
--- NOTE | 2022-11-17 08:29 | PC.NURSE ---
DR MOSS AT BEDSIDE
--- NOTE | 2022-11-17 08:29 | PC.NURSE ---
dr hughes at bs
[2022-11-17 08:32] LABS: POC Glucose,Bedside 338 (70-110)
--- NOTE | 2022-11-17 08:45 | PC.NURSE ---
called for transfer, Dr Torres speaking with Dr Mejía
--- NOTE | 2022-11-17 08:50 | PC.NURSE ---
DR PALUMBO AT BEDSIDE TO UPDATE PT AND FAMILY
--- NOTE | 2022-11-17 08:54 | PC.NURSE ---
REPORT GIVEN TO MARSHA OVERTON AT ED
--- NOTE | 2022-11-17 09:02 | EXP.SURG.CON ---
History of Present Illness *Admission Date: 11/17/22 *Reason for visit:: Abdominal pain *History of present illness: Asked to see and evaluate patient by ER physician due to abdominal pain and abnormal CT scan. She has had several EGDs in the past including several years ago with gastroenterology. She is a 77-year-old female with history of Parkinson's disease who was admitted on 06/27/2022 with a 2-week history of epigastric and substernal abdominal pain occurring postprandially with associated vomiting. Initially this started as diarrhea. She had a CT scan performed at that time which revealed findings consistent with proximal enteritis characterized by bowel wall thickening and edema of the duodenum to the proximal jejunum consistent with enteritis. At that time patient did have Hemoccult positive stool and symptoms consistent with melena. She did have a stool diarrhea panel at that time which was positive for Sapovirus. As an inpatient she underwent EGD at which time she was found to have severe erosive exudative esophagitis between 20 and 35 cm, gastroesophageal junction at 35 cm, mild nonerosive duodenitis within the bulb with significant erosive distal duodenitis characterized by too numerous to count punctate ulcerations/erosions extending likely into the jejunum. Patient was managed medically and able to be discharged. She underwent follow-up endoscopy on 09/12/2022 as an outpatient at which time she was found to have cricopharyngeal spasm, findings consistent with esophageal dysmotility, gastroesophageal junction at 35 cm, minuscule hiatal hernia, minor nonerosive diffuse gastropathy. Inspection a generous distance into the duodenum was completely normal at that time. Patient had presented to the emergency department on 11/13/2022 after she had fallen from a standing position. At that time she had complaints of bilateral upper quadrant pain and right wrist pain as well as left shoulder pain. She underwent extremely thorough evaluation in the emergency department which included CT scan of the head, CTA of the abdomen and pelvis, CT scan of the chest. Of note, the CTA of the abdomen revealed no acute traumatic injury in the abdomen and pelvis with no evidence of any vascular stenosis or occlusion and unremarkable stomach and bowel. CT scan of the chest was unremarkable. Patient had some ongoing abdominal pain for several days. Reportedly been obstipated for 1 week. She has had minimal p.o. intake at home. She had acute exacerbation of her abdominal pain overnight and family describes her abdomen being hard . Evaluation in the emergency department noted tachycardia on admission. She was found to have markedly elevated BUN of 89 and creatinine of 3.5. Blood glucose 400. AST 49. Blood gas reveals pH 7.27 with a base deficit of 10. Serum lactate 3.9. Interestingly, noncontrast CT scan reveals significant wall thickening within the duodenum with retroperitoneal air and abnormal retroperitoneal fluid with a small to moderate amount of intra-abdominal fluid. All of this is new since prior CT scan 5 days prior. Surgical consultation was obtained. [facility] Disclaimer: The information contained in this section may have been updated after the patient was seen, as this information can be updated by other users. Medical History Anxiety Breast cancer Depression Diabetes GERD (gastroesophageal reflux disease) Hyperlipidemia Hypertension Parkinson's disease Surgical History History of colonoscopy History of esophagogastroduodenoscopy (EGD) History of lumpectomy of left breast Family History Other No significant family history Social History Smoking Status: Never smoker second hand exposure: No alcohol intake: never substance
[2022-11-17 09:40] VITALS: BP 99/56; PULSE 90; RESP 17; TEMP 36.7; O2SAT 98
--- NOTE | 2022-11-17 09:59 | PC.NURSE ---
Jordy with [facility] [employer] here. The pt's is home with hospice staff. They are looking at getting him set up with inpatient services or temporary assisted living situation while the patient is in the hospital at . I called pt's POA/daughter, Doris Burden, and she authorized me to give the salesperson parts her contact information to be in charge of directing care with pt's .
[2022-11-17 11:32] LABS: Reflex Lactic Add Lactic Reflex
== END 2022-11-17 09:40 | disposition short-term general hospital (02) ==
PROVIDERS: Emergency Provider Emergency Medicine; PCP Nurse Practitioner Family
DX: K68.9 Other disorders of retroperitoneum; N17.9 Acute kidney failure, unspecified; E11.10 Type 2 diabetes mellitus with ketoacidosis without coma; G20 Parkinson's disease; F41.9 Anxiety disorder, unspecified; F32.A Depression, unspecified; E11.9 Type 2 diabetes mellitus without complications; K21.9 Gastro-esophageal reflux disease without esophagitis; E78.5 Hyperlipidemia, unspecified; I10 Essential (primary) hypertension
CPT/HCPCS: 71250; 74176; 80053; 81001; 82009; 82803; 82962; 83605; 83690; 85025; 87040; 96361; 96365; 96375; 99291; J2405; J2543

== ENCOUNTER → 2023-02-23 16:55 | Outpatient (CLI) | payer MEDICARE, SELFPAY ==
[2023-02-23 18:20] LABS: Anion Gap 14.6 mEq/L (5-15); Blood Urea Nitrogen 36 mg/dl (7-17); Calcium 9.4 mg/dl (8.4-10.2); Carbon Dioxide 28 mmol/L (22.0-30.0); Chloride 99 mmol/L (98-107); Estimated Glomerular Filt Rate 54 ml/min (>60); GFR (African American) 65 ML/MIN (>60); Glucose 110 mg/dl (74-100); Potassium 4.6 mmoL/L (3.5-5.1); Sodium 137 mmol/L (136-145)
== END ==
PROVIDERS: PCP Internal Medicine Adolescent Medicine; Visit Provider Internal Medicine Adolescent Medicine
DX: N17.9 Acute kidney failure, unspecified (principal)
CPT/HCPCS: 80048

== ENCOUNTER 2023-09-11 10:02 | Outpatient (CLI) | payer MEDICARE, SELFPAY ==
--- NOTE | 2023-09-11 10:10 | FL_ITS ---
FINAL REPORT CLINICAL HISTORY: dysphagia 29.98 mGy 276.43 DAP 1:09 fluoro FINDINGS: ESOPHAGRAM HISTORY: Abdominal pain, nausea. PROCEDURE: The patient ingested barium. Effervescent crystals were also administered. Spot and overhead films were obtained. FINDINGS: The esophagus demonstrates smooth narrowing of the distal esophagus. A barium tablet will not pass into the area of narrowing. There is no hiatal hernia. There is no gastroesophageal reflux. Peristalsis is normal. IMPRESSION: Smooth narrowing of the distal esophagus not allowing passage of a barium tablet. Endoscopic correlation is recommended. Fluoroscopy time: 1 minute and 9 seconds Radiation exposure in Reference air Kerma: 29.98 mGy Fluoro dose: 276.43 DAP in uG[employer] Reviewed, Interpreted and Dictated by Rafat Hernadez III, MD Transcribed by LUIS Kaufman Authenticated and [facility]
[2023-09-11] MEDS: BARIUM SULFATE (E-Z-HD 340GM);135ML BOTTLE 135 ML PO (10:36)
[2023-09-11] MEDS: E-Z-GASII EFFERVESCENT GRANULES;1PK 1 EACH PO (10:36)
[2023-09-11] MEDS: BARIUM SULFATE(LIQUID E-Z-PAQUE);355ML BOTTLE 355 ML PO (10:36)
== END 2023-09-11 23:59 | disposition home or self-care (01) ==
LOC: RAD 10:02
PROVIDERS: PCP Nurse Practitioner Family; Visit Provider Nurse Practitioner Family
DX: R13.19 Other dysphagia (principal)
CPT/HCPCS: 74220

== ENCOUNTER 2024-10-12 13:33 | Outpatient (CLI) | payer MEDICARE, SELFPAY ==
--- NOTE | 2024-10-12 | CA_ITS ---
APPROVED REPORT EXAM: Comprehensive 2D, Doppler, and color-flow Echocardiogram Vmware Engineer: Jessenia Real CRT Ht: 5 ft 0 in Wt: 140lbs BSA: 1.60 BP: 106/64 mmHg Indications: EDEMA 2D Dimensions LA Volume 21.00 mL LA Volume Index 12.80 mL/m2 (M/F) 16-34 M-Mode Dimensions RVDd 2.34 cm (0.9-2.6) LA Diam 2.97 cm (1.9-4.0) LVDd 3.97 cm (3.5-5.7) LVDs 2.09 cm (3.5-5.7) IVSd 1.66 cm (0.6-1.1) PWd 0.78 cm (0.6-1.1) EF (Teich) 79.40% FS 47.40% EDV (Teich) 68.80 mL TAPSE 1.72 (<1.7) ESV (Teich) 14.20 mL LV Diastology E Decel Time 137 (160-240 msec) E/A Ratio 0.55 MED A' 11.60 cm/s LAT A' 12.80 cm/s Aortic Valve AO Peak GR. 7.30 mmHg Mitral Valve MV A Velocity 124.0 (40-130 cm/s) E/A Ratio 0.55 Pulmonary Valve PV Peak Velocity 131.0 (50-150 cm/s) Tricuspid Valve TR P. Velocity 287.00 cm/s RAP Estimate 10.00 mmHg RVSP 42.90 mmHg Left Ventricle The left ventricle is normal size. The left ventricular systolic function is normal. The left ventricular ejection fraction is within the normal range. There is increased overall thickness. There is normal LV segmental wall motion. Transmitral Doppler flow pattern suggests impaired LV relaxation. LVEF is 60%. Right Ventricle The right ventricle is normal size. The right ventricular systolic function is normal. Atria The left atrium size is normal. The right atrium size is normal. There is no Doppler evidence of interatrial shunt. Aortic Valve The aortic valve is mildly thickened. There is no aortic valvular stenosis. Trace aortic regurgitation. Mitral Valve The mitral valve is mildly thickened. No evidence of mitral valve stenosis. Trace mitral regurgitation. Tricuspid Valve Tricuspid valve is grossly normal in structure and function. Trace tricuspid regurgitation. There is insufficient TR jet to estimate RVSP. Pulmonic Valve The pulmonary valve is normal in structure. Trace pulmonic regurgitation. Great Vessels The aortic root is normal in size. IVC is normal in size and collapses >50% with inspiration. Pericardium There is no pericardial effusion. Other Information Study Quality: Fair Conclusion Normal biventricular systolic function. No significant valvular stenosis or regurgitation. Electronically signed by : Lorie Palmer MD 10/21/2024 01:42:10
--- OUTSIDE RECORDS SUMMARY | 2024-10-12 13:35 | XMS_ITS | Clinical Summary ---
Author Organization [facility] Address [address] [place] [address] Care Team Providers Care Net Web Application Developer Name Role Phone Holly Cortés LILI Primary Care Provider [phone] Allergies No known active allergies Medications acetaminophen (Tylenol) 500 MG tablet Take 1 tablet (500 mg) by mouth every 4 (four) hours if needed for pain or fever. >100.4 Active albuterol 108 (90 Base) MCG/ACT inhaler Inhale 2 puffs every 4 (four) hours if needed for wheezing or shortness of breath. Active ALPRAZolam (Xanax) 0.5 MG tablet Take 1 tablet (0.5 mg) by mouth 1 (one) time each day if needed for anxiety. Active atorvastatin (Lipitor) 40 MG tablet Take 1 tablet (40 mg) by mouth every night. Active busPIRone (Buspar) 10 MG tablet Take 1 tablet (10 mg) by mouth 2 (two) times a day. Active cholecalciferol (Vitamin D-3) 50 MCG (2000 UT) tablet Take 2 tablets (4,000 Units) by mouth 1 (one) time each day in the morning. Active SITagliptin (Januvia) 100 MG tablet Take 1 tablet (100 mg) by mouth 1 (one) time each day. Active empagliflozin (Jardiance) 25 MG Take 1 tablet (25 mg) by mouth 1 (one) time each day. Active Rotigotine (Neupro) 8 MG/24HR patch [address] 1 patch on the skin 1 (one) time each day. Active citalopram (CeleXA) 20 MG tablet Take 1 tablet (20 mg) by mouth 1 (one) time each day in the morning. 4 Active senna-docusate (Mariel-Colace) 8.6-50 MG tablet Take 2 tablets by mouth every night. Active esomeprazole (NexIUM) [address] capsule Take 1 capsule (40 mg) by mouth 2 (two) times a day. Do not open capsule. Active nystatin (Mycostatin) cream Apply 1 Application topically 1 (one) time each day if needed (redness to groin area). Active insulin glargine (Lantus SoloStar, Basaglar) 100 UNIT/ML injection pen Inject 3 Units under the skin 1 (one) time each day in the morning. 15 mL 3 4 Active sucralfate (Carafate) 1 GM/10ML suspension 4 Active Active Problems Problem Noted Date Diagnosed Date Esophageal dysphagia 10/17/2023 Hypercalcemia 10/17/2023 Moderate protein-calorie malnutrition 03/25/2023 Overview (03/25/2023): Acute Nausea and vomiting 03/20/2023 Acute respiratory failure 01/04/2023 Overview (01/07/2023): Extubated on 01/06 Wean to extubate duonebs PRN Hydroxyzine PRN for anxiety/agitation Electrolyte abnormality 12/27/2022 Overview (12/27/2022): Monitor and correct as appropriate Single subsegmental pulmonar y embolism without acute cor pulmonale 12/17/2022 Overview (01/07/2023): - Found on CTPE 12/14/22 - RLL subsegmental PE Resume anticoagulation with heparin on 01/06. Deferring therapeutic treatment for subsegmental PE discovered on 12/14 due to patients previous bleed when on therapeutic anticoagulation. Recurrent risk of a bleed outweighs the risk of worsening PE, given negative venous duplex US and physical exam findings. Will continue DVT ppx. Follow H and H with AM labs Postprocedural intraabdominal abscess 11/27/2022 Overview (01/04/2023): Identified on 11/27, secondary to perforated duodenal ulcers, leak S/p multiple IR drains CT AP 12/27 with persistent perisplenic fluid collection Last sinogram 12/29 through remaining drain in LUQ AYAH (acute kidney injury) 11/22/2022 Perforated ulcer 11/17/2022 Overview (01/13/2023): -OSH 11/17 for worsening abdominal pain, CT revealed retroperitoneal free air concerning for duodenal perforation. Previous duodenitis in June -To OR on 11/17 for ex-lap, primary duodenal repair, JOANNA G tube, and J tube, temporary abdominal closure -11/19: Relook lap, abd washout and closure, placement of provena incisional wound vac - completed course of post-operative antibiotics -H pylori negative -Upper GI showing no signs of leak -Continuing concern for potential leak given high drain output on 11/27, CTAP showing fluid collection and contrast extrav -CT 12/27 to eval for persistent leak -FL Upper GI series 01/07 demonstrates no evidence of a leak -Clampe PTBD Acute blood loss anemia 11/17/2022 Overview (01/05/2023): Secondary to upper GI bleed 01/03 EGD with evacuation of clot 01/03, CTA with no interverenable bleeding PPI drip Continue to trend hemoglobin Transfuse for Hgb<7 Hematemesis 11/17/2022 Overview (01/07/2023): NG tube in place. Stable without bloody output 01/06, remove NG tube today Monitoring with AM labs Diabetes mellitus Overview (12/27/2022): -Adjust insulin regimen as needed with diet changes Resolved Problems Problem Noted Date Diagnosed Date Resolved Date Diarrhea 12/27/2022 01/07/2023 Overview (12/28/2022): Stool studies negative Limit solution meds Fiber packets per G tube Anemia 12/27/2022 01/05/2023 Overview (12/27/2022): Multifactorial in postoperative period with prolonged hospitalization Monitor and transfuse for Hgb<7 Leukocytosis 12/27/2022 01/04/2023 Overview (12/27/2022): Persistent rise despite negative infectious workup and broad antimicrobial course Trend Consider repeat infectious workup if fever, other signs of infection Melena 11/29/2022 12/27/2022 Overview (11/29/2022): New onset episodic melena starting 11/28 No bloody output in G tube 1 unit RBC on 11/28 CTM hemoglobin Holding bowel reg, holding plov VRE bacteremia 11/29/2022 12/27/2022 Overview (12/16/2022): Daptomycin started 11/28 and discontinued 12/15 Acute blood loss anemia 11/29/2022 09/2 06/2022 Overview (11/29/2022): Likely secondary to slow GI bleed, in setting of advanced PUD Transfuse for Hgb<7 Hypernatremia 11/26/2022 01/05/2023 Overview (12/27/2022): - previously Hypovolemic Hypernatremia 2/2 ongoing hyperglycemia causing osmotic diuresis, recurrent in setting of diarrhea, hyperglycemia Correct FW deficit as appropriate FW in tube feeds Pulmonary edema 11/23/2022 12/27/2022 Overview (11/28/2022): -Continued radiographic evidence of fluid -Continuing to diurese -11/28 CXR: shows continuing left pleural effusion with no evidence of progression Septic shock 11/22/2022 12/05/2022 Overview (11/29/2022): -progressively decompensated on 11/27 meeting SIRS criteria without clear source -recent CT scans identified likely source as intra-abdominal leak -required re-initiation of vasopressors as well as intubation 11/27 -Pt currently remains ventilated and on pressors -BCX growing VRE -On Zosyn and daptomycin -Lactate wnl, continue to monitor Acute respiratory failure with hypoxia 11/22/2022 12/07/2022 Overview (12/07/2022): Extubated on 12/04 Now saturating well on RA Thrombocytopenia 11/21/2022 11/23/2022 Overview (11/21/2022): -Detected on labs 11/17 likely related to recent operations as well as nutrition status Hematuria 11/20/2022 12/27/2022 Overview (11/20/2022): -11/20 UA showed RBCs both on microscopy and dipstick -continuing to follow Diabetic ketoacidosis 11/20/20222022 Overview (11/20/2022): - Euglycemic DKA suspected due to persistent anion gap - SGLT2 at home - Confirmed positive ketones - Treated with insulin drip and insulin glargine, gap now closed - Fluids, dextrose - Continuing to monitor Sepsis 11/18/2022 11/18/2022 Overview (11/18/2022): - On arrival from OSH meeting 2+ SIRS criteria with suspected source -Taken to the OR for source control -Post-op resolution of pressor requirement and not requiring acute resuscitation. -Remains on routine care 4 days course of abx's: Cefepime and Flagyl Bladder injury 11/17/2022 11/18/2022 Overview (11/18/2022): - No evidence of intra-peritoneal bladder injury intra-operatively - CT cystogram showed no evidence of bladder perforation Immunizations Immunization Administration Dates Next Due Moderna COVID-19 Vaccine (Re d Cap) 12+ years 01/16/2021,06/13/2020,05/16/2020 Moderna COVID-19 Vaccine Bivalent 6months+ 01/22 Family History Medical History Relation Name Comments Cancer Neg Hx Social History Tobacco Use Types Packs/Day Years Used Date Smoking Tobacco: Never Smokeless Tobacco: Never Tobacco Cessation:Counseling Given: Not Answered Alcohol Use Standard Drinks/Week Comments Never 0 (1 standard drink = 0.6 oz pur e alcohol) Humiliation, Afraid, Rape, and Kick questionnair e Answer Date Recorded Within the last year, have y ou been afraid of your partner or ex-partner? No 10/19/2023 Within the last year, have y ou been humiliated or emotionally abused in other ways by your partner or ex-partner? No Within the last year, have y ou been kicked, hit, slapped, or otherwise physically hurt by your partner or ex-partner? No 10/19/2023 Within the last year, have y ou been raped or forced to have any kind of sexual activity by your partner or ex-partner? No 10/19/2023 PHQ-2 Answer Date Recorded Patient Health Questionnaire-2 Score 0 12/21/2023 Hunger Vital Sign Answer Date Recorded Within the past 12 months, y ou worried that your food would run out before you got the money to buy more. Never true 10/19/19 24 Within the past 12 months, t he food you bought just didn't last and you didn't have money to get more. Never true 10/19/2023 PRAPARE - Transportation Answer Date Re corded In the past 12 months, has l ack of transportation kept you from medical appointments or from getting medications? No 10/04 In the past 12 months, has l ack of transportation kept you from meetings, work, or from getting things needed for daily living? No 10/19/2023 Housing Stability Vital Sign Answer Juan Jose e Recorded In the last 12 months, was t here a time when you were not able to pay the mortgage or rent on time? No 10/19/2023 In the last 12 months, how many places have you lived? 1 10/19/2023 In the last 12 months, was t here a time when you did not have a steady place to sleep or slept in a fci (including now)? No 10/19/2023 CAGE ASSESSMENT Answer Date Recorded Cage unable to access Not on file 10/18/2023 Cage max number of drinks Not on file 2023 Cage Beverages a week Not on file 10/18/2023 Have you ever felt you should CUT down on your d rinking? 0 10/18/2023 Have you been ANNOYED by people criticizing your drinking? 0 10/18/2023 Have you felt GUILTY about your drinking? 0 10/18/2023 Have you had a drink first t harshad in the morning (E[employer]SI[employer] FLOOR COVERING) to steady your nerves or to get rid of a hangover? 0 10/18/2023 CAGE Questionnaire Score 0 024 Utilities Answer Date Recorded In the past 12 months has th TCM Bertha, gas, oil, or water A vida é feita de [place] threatened to shut off services in your home? No 10/19/2023 PHQ-2A Answer Date Recorded Patient Health Questionnaire-2 Score 0 03/05/2023 Comments No Sex and Gender Information Value Date Recorded Sex Assigned at Not on file Legal Sex Female 5:58 PM EDT Gender Identity Not on file Sexual Orientation Not on file Last Filed Vital Signs Vital Sign Reading Time Taken Comments Blood Pressure 120/80 12/21/2023 11:58 AM EDT Pulse 81 12/21/2023 11:58 AM EDT Temperature 36.3 C (97.4 F) 12/21/2023 11:58 AM EDT Respiratory Rate 14 10/21/2023 8:02 AM EDT Oxygen Saturation 98% 12/21/2023 11:58 AM EDT Inhaled Oxygen Concentration - - Weight 61.4 kg (135 lb 5.8 oz) 12/21/2023 11:58 AM EDT Height 157.5 cm (5' 2 ) 12/21/2023 11:58 AM EDT Body Mass Index 24.76 12/21/2023 11:58 AM EDT Plan of Treatment Health Maintenance Due Date Last Done Comments [facility]-Bone Density Scan 1944 [facility]-Medicare Annual Wellness (AWV) 1945 [facility]-/Child/Adol SDOH Screenings 1945 Diabetes: Dental Exam 1954 [facility]-DTaP,Tdap,and Td Vaccines (1 - Tdap) 08/25/1963 [facility]-Pneumococcal Vaccine: 50+ Years (1 of 2 - PCV) 08/25/1963 [facility]-Zoster Vaccines (1 of 2) 1994 [facility]-RSV Vaccine: 60+ Years or (1 - 1-dose 75+ series) 08/25/2019 [facility]-Diabetes: Hemoglobin A1C 09/18/2023 03/21/2023 [id number] Vaccine ( season) 2023 01/22/2022, 01/16/2021, 06/13/2020, Additional history exists [facility]- SDOH Screenings 04/20/2024 [facility]-Adult SDOH Screenings 04/20/2024 10/19/2023 [facility]-Influenza Vaccine (#1) 2024 [facility]-Depression Screening 12/20/2024 12/21/2023 HPV Vaccines Aged Out No longer eligi ble based on patient's age to complete this topic [facility]-HIB Vaccines Aged Out No longer e ligible based on patient's age to complete this topic [facility]-Hepatitis A Vaccines Aged Out No longer eligible based on patient's age to complete this topic [facility]-IPV Vaccines Aged Out No longer e ligible based on patient's age to complete this topic [facility]-Rotavirus Vaccines Aged Out No lo nger eligible based on patient's age to complete this topic Procedures Procedure Name Priority Date/Time Associated Diagnosis Comments HEMOGLOBIN A1C Add-On 03/21/2023 4:00 AM EST from Last 3 Months or Most Recently Relevant to Health Maintenance Results * (ABNORMAL) Hemoglobin A1c (03/21/2023 4:00 AM EST) Hemoglobin A1c 6.1(H) <5.7 % 03/21/2023 1:07 PM EST [facility] Blood Venous blood specimen / Unknown Venipuncture / Unknown 03/21/2023 4:00 AM EST 03/21/2023 4:08 AM EST Narrative [facility] - 03/21/2023 1:07 PM EST HA1C Interpretive Data: Diagnosis of Diabetes: Diabetic > or = 6.5% Pre-diabetic 5.7 to 6.4% Non-diabetic < or = 5.6% Glycemic Targets for Type I and Type II Diabetics: Non- Adults <7.0% Adults <6.0% Children and Adolescents <7.5% Source: [place] [employer]. Standards of medical care in diabetes,2017. Diabetes Care.2017:40 (suppl 1):S1-S135. HbA1c assay performed by an ion-exchange chromatography method that is certified traceable to the DCCT. us Susannah Farris MD LAB BLOOD ORDERABLES Final Result [facility] [address] [place] [address] from Last 3 Months or Most Recently Relevant to Health Maintenance Additional Health Concerns Infection Onset Date Last Indicated VRE 11/27/2022 11/27/2022 Insurance Advance Directives Documents on File Type Date Recorded Patient Assistant Manager Expl anation Power of Senior Staff Specialized Employment 03/28/2023 11:10 AM Power of Senior Staff Specialized Employment 03/23/2023 4:07 PM Advance Directives and Livin g Will 03/22/2023 11:20 AM * Full Code (Latest Code Status on File) Date Activated Date Inactivated Comments 10/17/2023 7:33 PM 10/21/2023 7:18 PM Question Answer Comments Patient has decision-making capacity? Yes * DNR/DNI Date Activated Date Inactivated Comments 03/22/2023 11:02 AM 03/27/2023 7:38 PM Question Answer Comments DNR determined on/before admission date? Yes Patient has decision-making capacity? No Healthcare Surrogate: Healthcare POA Name of Healthcare Surrogate: Doris Burden (daught er) * Full Code Date Activated Date Inactivated Comments 03/20/2023 9:28 PM 03/22/2023 11:02 AM Family pr esent and she would like to be full code and if prolonged defers to family for decisional making Question Answer Comments Patient has decision-making capacity? Yes * DNR/DNI Date Activated Date Inactivated Comments 01/06/2023 1:56 PM 01/23/2023 8:08 PM Question Answer Comments DNR determined on/before admission date? No Patient has decision-making capacity? No Healthcare Surrogate: Adult child of the patient * DNR - Ok to intubate Date Activated Date Inactivated Comments 01/02/2023 5:52 PM 01/06/2023 1:56 PM Question Answer Comments DNR determined on/before admission date? No Patient has decision-making capacity? No Healthcare Surrogate: Healthcare POA Name of Healthcare Surrogate: Doris, suze Care Teams Net Web Application Developer Relationship Specialty Start Date End Date Holly Cortés APRN [address] [place] [address] [place] [id number] PCP - General 11/18/21
== END 2024-10-12 23:59 | disposition home or self-care (01) ==
LOC: RT 13:33
PROVIDERS: PCP Internal Medicine Adolescent Medicine; Visit Provider Nurse Practitioner Family
DX: R60.0 Localized edema (principal); R63.5 Abnormal weight gain
CPT/HCPCS: 93306

== ENCOUNTER 2024-10-19 03:50 | Outpatient (CLI) | payer MEDICARE, SELFPAY ==
--- OUTSIDE RECORDS SUMMARY | 2024-10-19 03:53 | XMS_ITS | Clinical Summary ---
Author Organization [facility] Address [address] [place] [address] Care Team Providers Care Punch Finisher Name Role Phone Holly Cortés LILI Primary Care Provider [phone] Allergies No known active allergies Medications acetaminophen [...] place to sleep or slept in a halfway (including now)? No 10/19/2023 CAGE ASSESSMENT Answer [...] drink first t harshad in the morning (EYE-RELIGIOUS HEALER) to steady your nerves or to get rid of a hangover? 0 10/18/2023 CAGE Questionnaire Score 0 024 Utilities Answer Date Recorded In the past 12 months has th [employer], gas, oil, or water #way[employer] threatened to shut off services in your [...] Scan 1944 [facility]-Medicare Annual Wellness (AWV) 1944 [facility]-Infant/Child/Adol SDOH Screenings 1944 Diabetes: Dental Exam 1954 [facility]-DTaP,Tdap,and Td Vaccines (1 - Tdap) 08/25/1963 [facility]-Pneumococcal Vaccine: 50+ Years (1 of 2 - PCV) 08/25/1963 [facility]-Zoster Vaccines (1 of 2) 1994 [facility]-RSV Vaccine: 60+ Years or (1 - 1-dose 75+ series) 08/25/2019 [facility]-Diabetes: Hemoglobin A1C 09/18/2023 03/21/2023 [id number] Vaccine ( season) 2023 01/22/2022, 01/16/2021, 06/13/2020, [...] <5.7 % 03/21/2023 1:07 PM EST [facility] Blood Venous blood specimen / Unknown [...] Adults <6.0% Children and Adolescents <7.5% Source: [place] [employer]. Standards of medical care in diabetes,2017. Diabetes Care.2017:40 (suppl 1):S1-S135. HbA1c assay performed by an ion-exchange chromatography method that is certified traceable to the DCCT. 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
[2024-10-19 04:34] LABS: Hematocrit 35.6 % (37.0-47.0); Hemoglobin 11.2 g/dL (12.2-16.2); Immature Granulocytes % 0.6 %; Mean Corpuscular HGB Conc 31.5 g/dL (31.8-35.4); Mean Corpuscular Hemoglobin 27.5 pg (27.0-31.2); Mean Corpuscular Volume 87.3 fl (81-99); Nucleated Red Blood Cells % 0 %; Platelet Count 332 K/mm3 (142-424); Red Blood Count 4.08 M/mm3 (4.20-5.40); Red Cell Distribution Width-SD 49.7 fL; White Blood Count 9.9 K/mm3 (4.8-10.8)
[2024-10-19 04:47] LABS: Chloride 97 mmol/L (98-107); Potassium 4.5 mmoL/L (3.5-5.1); Sodium 136 mmol/L (136-145)
[2024-10-19 04:50] LABS: Anion Gap 18.5 mEq/L (5-15); Blood Urea Nitrogen 28 mg/dl (7-17); Calcium 9.2 mg/dl (8.4-10.2); Carbon Dioxide 25 mmol/L (22.0-30.0); Creatinine,Serum 1.30 mg/dl (0.52-1.04); Estimated Glomerular Filt Rate 39 ml/min (>60); GFR (African American) 48 ML/MIN (>60); Glucose 197 mg/dl (74-100)
[2024-10-19 05:21] LABS: Thyroid Stimulating Hormone 3.58 uIU/mL (0.465-4.68)
== END 2024-10-19 23:59 | disposition home or self-care (01) ==
LOC: LAB.DROPOF 03:51
PROVIDERS: PCP Nurse Practitioner Family; Visit Provider Nurse Practitioner Family
DX: E10.9 Type 1 diabetes mellitus without complications (principal); G20.C Parkinsonism, unspecified; I10 Essential (primary) hypertension
CPT/HCPCS: 80048; 82533; 84443; 85025